=== PATIENT | female | born 1935 | race Caucasian/White ===

== ENCOUNTER 2017-08-01 15:07 | Emergency (ER) | payer MEDICARE ==
[~2017-08-01] VITALS: Ht 170.2 cm; Wt 65.8 kg
[2017-08-01] MEDS ORDERED: IV NORMAL SALINE 1000 ML BAG IV ONE (15:15)
--- NOTE | 2017-08-01 15:16 | NUR ---
PT IS IN ROOM #1B. DR COLIN EVALUATED THE PT.
[2017-08-01] MEDS ORDERED: ARMOUR THYROID 120 MG (15:22)
[2017-08-01] MEDS ORDERED: PAROXETINE 12.5 MG (15:22)
[2017-08-01] MEDS ORDERED: ZOLPIDEM TARTRATE 10 MG TABLET (15:22)
[2017-08-01] MEDS ORDERED: CLONAZEPAM 0.5 MG TABLET (15:22)
[2017-08-01] MEDS ORDERED: CLONAZEPAM 0.5 MG (15:22)
[2017-08-01] MEDS ORDERED: PAROXETINE 37.5 MG (15:22)
[2017-08-01] MEDS ORDERED: LEVOTHYROXINE 150 MCG TABLET (15:22)
[2017-08-01 15:38] LABS: BASOPHILS # (AUTO) 0.1 K/uL (0.0-8.0); BASOPHILS % (AUTO) 0.7 % (0.0-2.0); EOSINOPHILS # (AUTO) 0.1 K/uL (0.0-0.7); EOSINOPHILS % (AUTO) 1.6 % (0.0-7.0); HEMATOCRIT 38.6 % (37-47); HEMOGLOBIN 12.8 G/DL (12.0-16.0); LYMPHOCYTES # (AUTO) 1.4 K/UL (0.8-4.8); LYMPHOCYTES % (AUTO) 17.5 % (20.5-51.5); MEAN CORPUSCULAR HEMOGLOBIN 28.1 UUG (27.0-31.0); MEAN CORPUSCULAR HGB CONC 33 g/dL (32.0-37.0); MEAN CORPUSCULAR VOLUME 84.8 FL (81.0-99.0); MONOCYTES # (AUTO) 0.6 K/UL (0.1-1.30); MONOCYTES % (AUTO) 7.1 % (0.0-11.0); NEUTROPHILS # (AUTO) 5.7 K/UL (1.8-8.9); NEUTROPHILS % (AUTO) 73.1 % (38.5-71.5); PLATELET COUNT (AUTO) 180 K/UL (150-450); RED BLOOD CELL COUNT(AUTO) 4.55 MIL/UL (4.2-5.4); WHITE BLOOD COUNT (AUTO) 7.9 K/UL (4.0-11.2)
[2017-08-01 15:46] LABS: CARBON DIOXIDE 28 mmol/L (21-32); CHLORIDE 98 mmol/L (98-107); CREATININE 1.2 mg/dL (0.6-1.3); GLUCOSE 121 mg/dL (74-106); POTASSIUM 3.6 mmol/L (3.5-5.1); UREA NITROGEN, BLOOD 20 mg/dL (7-18)
[2017-08-01 15:58] LABS: ALANINE AMINOTRANSFERASE 21 U/L (14-59); ALKALINE PHOSPHATASE 60 U/L (50-136); ASPARTATE AMINOTRANSFERASE 17 U/L (15-37); BILIRUBIN,DIRECT 0.1 mg/dL (0.0-0.2); BILIRUBIN,TOTAL 0.5 mg/dL (0.2-1.0); TOTAL PROTEIN, SERUM 6.3 g/dL (6.4-8.2)
[2017-08-01 16:50] VITALS: BP 125/72
--- NOTE | 2017-08-01 16:50 | NUR ---
IV removed. Catheter intact and site benign. Pressure and 4x4 gauze applied to site. No bleeding noted. Patient discharged to home in stable conditon. Written and verbal after care instructions given. Patient verbalizes understanding of instructions. Stressed follow up with pmd/cardio or return to ER for worsening s/s.
== END 2017-08-01 16:51 | disposition home or self-care (01) ==
LOC: ER 15:07
DX: R07.89 Other chest pain (principal); Z88.8 Allergy status to other drugs, medicaments and biological substances; R79.1 Abnormal coagulation profile
CPT/HCPCS: 36415; 70030-TC; 71010; 83605; 84443; 85025; 85730; 87040; 93005; A4663; J7030

== ENCOUNTER 2017-11-16 03:59 | Inpatient (IN) | payer MEDICARE ==
[~2017-11-16] VITALS: Ht 170.2 cm; Wt 65.8 kg
[2017-11-16] VITALS (9 sets, daily range): BP systolic 95–155; BP diastolic 43–75
[~2017-11-16 03:59] MED LIST: ARMOUR THYROID 120 MG; CLONAZEPAM 0.5 MG; CLONAZEPAM 0.5 MG TABLET; LEVOTHYROXINE 150 MCG TABLET; PAROXETINE 12.5 MG; PAROXETINE 37.5 MG; ZOLPIDEM TARTRATE 10 MG TABLET
[2017-11-16] MEDS ORDERED: DILTIAZEM HCL 25 MG IV IV ONE (04:30)
[2017-11-16] MEDS ORDERED: IV NORMAL SALINE 1000 ML BAG IV ONE (04:30)
[2017-11-16] MEDS ORDERED: DILTIAZEM HCL IV 125 MG in IV DEXTROSE 5% 100 ML IV PRN (04:30)
--- NOTE | 2017-11-16 04:40 | NUR ---
SPOKE WITH PT UNABLE TO VERIFY MEDICATIONS.SON HAS BEEN CALLED BY NEIGHBOR.WILL ATTEMT TO GET LIST OF MEDS OR MEDICATIONS FROM HIM
[2017-11-16] MEDS ORDERED: DILTIAZEM HCL 25 MG IV ONE ×2 (04:44→04:48)
[2017-11-16] MEDS ORDERED: DILTIAZEM HCL 50 MG IV ONE (04:48)
[2017-11-16 04:56] LABS: BASOPHILS % (AUTO) 0.1 % (0.0-2.0); EOSINOPHILS # (AUTO) 0.1 K/uL (0.0-0.7); EOSINOPHILS % (AUTO) 0.6 % (0.0-7.0); HEMATOCRIT 34.9 % (31.2-41.9); HEMOGLOBIN 11.7 g/dL (10.9-14.3); LYMPHOCYTES # (AUTO) 0.6 K/uL (20.0-40.0); LYMPHOCYTES % (AUTO) 6.3 % (20.5-51.5); MEAN CORPUSCULAR HEMOGLOBIN 28.6 uug (24.7-32.8); MEAN CORPUSCULAR HGB CONC 34 g/dL (32.3-35.6); MEAN CORPUSCULAR VOLUME 85.3 fL (75.5-95.3); MONOCYTES % (AUTO) 10.7 % (0.0-11.0); NEUTROPHILS # (AUTO) 7.7 K/uL (1.8-8.9); NEUTROPHILS % (AUTO) 82.3 % (38.5-71.5); PLATELET COUNT (AUTO) 106 K/uL (179-408); RED BLOOD CELL COUNT(AUTO) 4.09 MIL/uL (3.63-4.92); WHITE BLOOD COUNT (AUTO) 9.3 K/uL (3.8-11.8)
[2017-11-16] MEDS ORDERED: CALCIUM GLUCONATE 1 GM/10 ML VIAL IV ONE (05:00)
[2017-11-16] MEDS ORDERED: CALCIUM GLUCONATE IV 0.1 GM in IV DEXTROSE 5% 50 ML IV ONE (05:00)
[2017-11-16 05:12] LABS: ACETAMINOPHEN < 2.0 ug/mL (10-30); ALANINE AMINOTRANSFERASE 28 U/L (14-59); ALKALINE PHOSPHATASE 92 U/L (50-136); ASPARTATE AMINOTRANSFERASE 28 U/L (15-37); BILIRUBIN,DIRECT 0.2 mg/dL (0.0-0.2); BILIRUBIN,TOTAL 0.6 mg/dL (0.2-1.0); CARBON DIOXIDE 24 mmol/L (21-32); CHLORIDE 95 mmol/L (98-107); CREATININE 1.7 mg/dL (0.6-1.3); GLUCOSE 118 mg/dL (74-106); POTASSIUM 4.2 mmol/L (3.5-5.1); TOTAL PROTEIN, SERUM 6.8 g/dL (6.4-8.2); UREA NITROGEN, BLOOD 31 mg/dL (7-18)
[2017-11-16 05:15] LABS: ETHANOL < 3 MG/DL (0-0)
[2017-11-16] MEDS ORDERED: TDAP DIPH,PERTUSS,TET VAC/PF 0.5 ML DISP.SYRIN IM ONE ×2 (05:15→06:16)
[2017-11-16 05:19] LABS: THYROID STIMULATING HORMONE 3.139 mIU/mL (0.358-3.740)
[2017-11-16 06:00] LABS: *BILIRUBIN,URIN NEGATIVE (NEGATIVE); *BLOOD, URINE 2+ (NEGATIVE); *CLARITY,URINE CLOUDY (CLEAR); *COLOR,URINE YELLOW (YELLOW); *KETONES,URINE 2+ (NEGATIVE); *PROTEIN,URINE 2+ (NEGATIVE); LEUKOCYTE ESTERASE ,URINE 2+ (NEGATIVE); NITRITE, URINE POSITIVE (NEGATIVE); PH,URINE 5.5 (5.0-8.0); UGLUCOSE NEGATIVE (NEGATIVE)
[2017-11-16] MEDS ORDERED: ASPIRIN 81 MG TAB.CHEW PO ONE ×2 (06:15→06:30)
[2017-11-16] MEDS ORDERED: ACETAMINOPHEN 325 MG TABLET PO PRN (06:15)
[2017-11-16] MEDS ORDERED: HYDROCODONE/APAP 5-325MG TABLET PO PRN (06:15)
[2017-11-16] MEDS ORDERED: MAGNESIUM HYDROXIDE 30 ML LIQUID UDC PO PRN (06:15)
[2017-11-16] MEDS ORDERED: OLANZAPINE 5 MG TABLET PO PRN (06:15)
[2017-11-16] MEDS ORDERED: ONDANSETRON 4 MG/2 ML VIAL IV PRN (06:15)
[2017-11-16] MEDS ORDERED: MORPHINE SULFATE 2 MG/1 ML DISP.SYRIN IV PRN (06:15)
[2017-11-16] MEDS ORDERED: Z GUARD REMEDY PASTE 57 GM TUBE TOP PRN (06:15)
[2017-11-16 06:28] LABS: *AMPHETAMINE, URINE NEGATIVE (NEGATIVE); *BARBITURATE, URINE NEGATIVE (NEGATIVE); *CANNABINOID, URINE NEGATIVE (NEGATIVE); *COCCAINE, URINE NEGATIVE (NEGATIVE); *OPIATE, URINE NEGATIVE (NEGATIVE); *PHENCYCLIDINE SCREEN,URINE NEGATIVE (NEGATIVE)
[2017-11-16] MEDS ORDERED: NITROFURANTOIN/NITROFURAN MAC 100 MG CAPSULE PO ONE (06:30)
--- NOTE | 2017-11-16 07:30 | NUR ---
Pt new admission from ER dept with chief complaint of AMS and was found with A-fib RVR in the ER. REc'd Max in the ER. Initial head to toe assessment completed. Pt A&O x2. Able to make needs known in clear [place]. On RA tolerating well at 98% O2Sat. Denies pain at this time. Oriented to room and call light. No acute distress noted. Denies chest pain. On tele, with A-fib. Will continue to monitor.
[2017-11-16] MEDS ORDERED: LEVO150T8 PO (10:12)
[2017-11-16] MEDS ORDERED: ZOLP10TA2 PO (10:13)
[2017-11-16] MEDS ORDERED: PARO25TA16 PO ×2 (10:14→10:15)
[2017-11-16] MEDS ORDERED: METO-357 PO (10:16)
[2017-11-16] MEDS ORDERED: METOPROLOL SUCCINATE XL 25 MG TAB.SR.24H PO ONE (12:28)
[2017-11-16] MEDS ORDERED: DILTIAZEM HCL 30 MG TABLET PO SCH (13:15)
[2017-11-16 14:47] LABS: RBC,URINE 20-50 /HPF (0-3); SQUAMOUS EPITHELIAL CELL,UR FEW /HPF (NONE SEEN); WBC,URINE 20-50 /HPF (0-3)
[2017-11-16 14:58] LABS: BACTERIA,URINE MANY /HPF (NONE SEEN)
--- NOTE | 2017-11-16 15:00 | NUR ---
Noted pt with elevated temp of 102.7, 130, 22, 131/58, 95% O2Sat RA, 0/10. Pt continues to be confused and verbalizing she needs to go to the hospital. Reoriented pt. Assisted back to bed. Cooling measures initiated. Administered Tylenol 650mg PO PRN. Notified Dr. Kam notified with new order for Blood Cx X2, Start Zosyn IV, and Vanco IV. Noted and carried out. Will encourage PO fluid intake. Will continue to monitor pt.
--- NOTE | 2017-11-16 15:08 | NUR ---
CLINICAL PHARMACY NOTE:VANCOMYCIN DOSING S: To start vancomycin dosing on 82 y/o female for "suspected infection" (waiting for MD note) O: Temp 98.6 BUN 31 Scr 1.7 WBC 9.3 Plan: Will dose by levels due to decrease renal function. Will give vanco 1gm IVPB x1 today at 1600. Pharmacy will check srcr in am & decide when to order next random for further dosing. Will continue to follow Addendum: 11/16/17 at 1512 by GARY AGUERO HT 170.1 CM WT 65.7 KG
[2017-11-16] MEDS: PIPERACILLIN/TAZOBACTAM/D5W 2.25 G in PREMIXED 1 EACH IV SCH ×2 (15:28→20:23)
[2017-11-16] MEDS ORDERED: VANCOMYCIN IV 1 G in PREMIXED 0 EACH IV ONE (16:00)
[2017-11-16] MEDS ORDERED: DILTIAZEM HCL 30 MG TABLET PO PRN (16:30)
[2017-11-16] MEDS: METOPROLOL TARTRATE 25 MG TABLET PO SCH ×2 (18:00→23:34)
--- NOTE | 2017-11-16 18:30 | NUR ---
Pt in bed with eyes closed. Arousable to name. Temp 98.3 oral. On tele, noted with controlled A-Fib at this time with rate in the 80s. Denies pain. Received Zosyn and Vanco IV as ordered. No s/s of adverse side effects noted. Pt appears less confused. No behavioral manifestation noted. No s/s of hallucination noted. No facial grimacing. Will endorse to incoming nurse.
--- NOTE | 2017-11-16 19:30 | NUR ---
RECEIVED PT LYING IN BED, AAOX3. DENIES ANY PAIN OR SOB. NOT IN ACUTE DISTRESS. O2 SAT AT 98% ON RA. A. FIB ON THE 80'S ON TELE. IV SITE ON RIGHT HAND INTACT AND PATENT. BED IN LOCK AND LOW POSITION. BED ALARM ON. SAFETY MEASURE INITIATED AND CALL CROWDER WITHIN REACH.
--- NOTE | 2017-11-17 00:02 | NUR ---
PT SLEEPING INTERMITTENTLY. WITH PERIOD OF CONFUSION NOTED, LOOKING FOR HER SON AND THOUGHT IT'S DAY TIME. IN NO ACUTE DISTRESS. O2 SAT AT 93% ON RA. IV SITE INTACT AND PATENT. SR WITH PAC ON TELE. 80/MIN. SAFETY MEASURE MAINTAINED AND CALL CROWDER WITHIN REACH.
[2017-11-17] MEDS: PIPERACILLIN/TAZOBACTAM/D5W 2.25 G in PREMIXED 1 EACH IV SCH ×2 (02:30→08:09)
[2017-11-17 04:00] VITALS: BP 110/58
[2017-11-17] MEDS: METOPROLOL TARTRATE 25 MG TABLET PO SCH ×3 (05:20→20:06)
--- NOTE | 2017-11-17 06:03 | NUR ---
AOX3 WITH PERIODS OF CONFUSION. DENIES ANY PAIN OR SOB. NOT IN ACUTE DISTRESS. O2 SAT AT 98% ON RA. A. FIB, SR WITH PAC'S ON TELE. IV SITE ON RIGHT HAND INTACT AND PATENT. ASSISTED TO BATHROOM PRN. BED IN LOCK AND LOW POSITION. BED ALARM ON. SAFETY MEASURE MAINTAINED AND CALL CROWDER WITHIN REACH.
[2017-11-17 06:58] LABS: BASOPHILS % (AUTO) 0.2 % (0.0-2.0); EOSINOPHILS # (AUTO) 0.1 K/uL (0.0-0.7); EOSINOPHILS % (AUTO) 0.7 % (0.0-7.0); HEMATOCRIT 32.5 % (31.2-41.9); HEMOGLOBIN 10.9 g/dL (10.9-14.3); LYMPHOCYTES # (AUTO) 0.7 K/uL (20.0-40.0); LYMPHOCYTES % (AUTO) 7.6 % (20.5-51.5); MEAN CORPUSCULAR HEMOGLOBIN 28.2 uug (24.7-32.8); MEAN CORPUSCULAR HGB CONC 34 g/dL (32.3-35.6); MEAN CORPUSCULAR VOLUME 83.9 fL (75.5-95.3); MONOCYTES # (AUTO) 1.1 K/uL (2.0-10.0); MONOCYTES % (AUTO) 11.3 % (0.0-11.0); NEUTROPHILS # (AUTO) 7.7 K/uL (1.8-8.9); NEUTROPHILS % (AUTO) 80.2 % (38.5-71.5); RED BLOOD CELL COUNT(AUTO) 3.87 MIL/uL (3.63-4.92); WHITE BLOOD COUNT (AUTO) 9.6 K/uL (3.8-11.8)
[2017-11-17 07:00] LABS: ALANINE AMINOTRANSFERASE 25 U/L (14-59); ALKALINE PHOSPHATASE 83 U/L (50-136); ASPARTATE AMINOTRANSFERASE 25 U/L (15-37); BILIRUBIN,TOTAL 0.6 mg/dL (0.2-1.0); CARBON DIOXIDE 24 mmol/L (21-32); CHLORIDE 96 mmol/L (98-107); CHOLESTEROL 122 mg/dL (<200); CREATININE 1.2 mg/dL (0.6-1.3); GLUCOSE 102 mg/dL (74-106); HDL CHOLESTEROL 39 mg/dL (40-60); MAGNESIUM 1.7 mg/dL (1.8-2.4); PHOSPHOROUS 2.4 mg/dL (2.5-4.9); TOTAL PROTEIN, SERUM 5.6 g/dL (6.4-8.2); TRIGLYCERIDES 78 MG/DL (30-150); UREA NITROGEN, BLOOD 20 mg/dL (7-18)
[2017-11-17 07:10] LABS: PLATELET COUNT (AUTO) 142 K/uL (179-408)
[2017-11-17] MEDS: ASPIRIN EC 325 MG TABLET.DR PO SCH (08:09)
--- NOTE | 2017-11-17 09:05 | NUR ---
PT WALK WITH THE PHYSICAL THERAPY
[2017-11-17 11:04] VITALS: BP 114/53
[2017-11-17] MEDS ORDERED: FUROSEMIDE 20 MG/2 ML VIAL IV ONE (12:15)
[2017-11-17] MEDS: CEFTRIAXONE 1 G in IV DEXTROSE 5% 50 ML IV SCH (13:04)
[2017-11-17] MEDS ORDERED: VANCOMYCIN IV 1 G in PREMIXED 0 EACH IV ONE (15:00)
[2017-11-17 15:07] VITALS: BP 116/64
[2017-11-17] MEDS ORDERED: NEUTRA PHOS PACKET PO ONE (15:45)
[2017-11-17] MEDS: MAGNESIUM SULFATE/D5W 100 ML IV SCH ×2 (16:43→17:45)
--- NOTE | 2017-11-17 17:05 | NUR ---
CLINICAL PHARMACY NOTE:VANCOMYCIN DOSING S: To continue vancomycin dosing on 82 y/o female for UTI with possible early sepsis Temp 98.4 BUN 20 Scr 1.2 WBC 9.6 Vancomycin random 8.8 on am labs Plan: . Will give vanco 1gm IVPB x1 today at 1500. Will continue to dose by random level due to unstable renal function. Next random level is due tomorrow at 0600. Will follow the level.
[2017-11-17 19:24] VITALS: BP 95/49
--- NOTE | 2017-11-17 20:00 | NUR ---
RECEIVED PATIENT AWAKE IN BED. A/OX3. FORGETFUL AT TIMES AND NEEDS REDIRECTION. PATIENT STATED SHE HAS NOT SLEPT IN THE TIME SHE HAS BEEN HERE AND STATED AT HOME SHE TAKES AMBIEN TO SLEEP. NOTIFIED DR. MANJARREZ CHEF BROILER OR FRY FOR FURTHER ORDERED. RECEIVED ORDER FOR AMBIEN. VS WNL. PATIENT DENIES ANY PAIN. NO RESP. DISTRESS NOTED. H/L INTACT AND PATENT. BED ALARM ON FOR SAFETY, CALL LIGHT IN REACH. ALL NEEDS ATTENDED. WILL CONTINUE TO MONITOR AND ASSESS.
[2017-11-17] MEDS: ZOLPIDEM 5 MG TABLET PO PRN ×2 (21:41→22:45)
[2017-11-18 04:30] VITALS: BP 116/98
--- NOTE | 2017-11-18 06:07 | NUR ---
PATIENT ASLEEP IN BED. EASILY AROUSABLE. SLEPT WELL THROUGHOUT THE NIGHT. VSS. DENIES PAIN OR DISCOMFORT. NO RESP. DISTRESS NOTED. CALL LIGHT IN REACH. ALL NEEDS ATTENDED, WILL CONTINUE TO MONITOR.
[2017-11-18 06:51] LABS: CARBON DIOXIDE 31 mmol/L (21-32); CHLORIDE 96 mmol/L (98-107); CREATININE 1.2 mg/dL (0.6-1.3); GLUCOSE 90 mg/dL (74-106); MAGNESIUM 2.2 mg/dL (1.8-2.4); PHOSPHOROUS 3.4 mg/dL (2.5-4.9); POTASSIUM 3.5 mmol/L (3.5-5.1); UREA NITROGEN, BLOOD 16 mg/dL (7-18); VANCOMYCIN,RANDOM 11.7 ug/mL (18.0-26.0)
--- NOTE | 2017-11-18 07:38 | NUR ---
RECEIVED PT LYING IN BED, AAOX3. DENIES ANY PAIN OR SOB. NOT IN ACUTE DISTRESS. IV SITE ON RIGHT HAND INTACT AND PATENT. BED IN LOCK AND LOW POSITION. BED ALARM ON. SAFETY MEASURE INITIATED AND CALL CROWDER WITHIN REACH.
[2017-11-18] MEDS: ASPIRIN EC 325 MG TABLET.DR PO SCH (08:03)
[2017-11-18] MEDS: METOPROLOL TARTRATE 25 MG TABLET PO SCH ×2 (08:03→20:44)
[2017-11-18] MEDS ORDERED: VANCOMYCIN IV 1 G in PREMIXED 0 EACH IV ONE (09:00)
[2017-11-18 11:36] VITALS: BP 106/66
[2017-11-18] MEDS: CEFTRIAXONE 1 G in IV DEXTROSE 5% 50 ML IV SCH (12:15)
--- NOTE | 2017-11-18 15:47 | NUR ---
CLINICAL PHARMACY NOTE:VANCOMYCIN DOSING S: To continue vancomycin dosing on 82 y/o female for UTI with possible early sepsis Temp 98.4 BUN 16 Scr 1.2 WBC 9.6 (11/17) Vancomycin random 11.7 on am labs Plan: . Will give vanco 1gm IVPB x1 today at 0900. Will continue to dose by random level due to unstable renal function. Next random level is due tomorrow at 0600. Will follow the level.
[2017-11-18 16:05] VITALS: BP 102/60
[2017-11-18] MEDS: SULFAMETH/TRIMETH 800/160 MG TABLET PO SCH ×2 (18:09→20:42)
--- NOTE | 2017-11-18 19:35 | NUR ---
PT RECEIVED IN BED, AWAKE. A/OX2. ABLE TO MAKE NEEDS KNOWN. V/S STABLE. IN NO ACUTE DISTRESS. NO C/O PAIN AT THIS TIME. REFUSED IV PLACEMENT, AWARE. ON RA, TOLERATING WELL. AFEBRILE. PT ENCOURAGE TO STAY IN BED AND USE CALL LIGHT FOR ASSISTANCE. HOB ELEVATED. SAFETY MEASURES IMPLEMENTED. BED ALARM SET. CALL LIGHT WITHIN REACH.
[2017-11-18 20:22] VITALS: BP 100/68
[2017-11-18] MEDS: ZOLPIDEM 5 MG TABLET PO PRN (20:42)
--- NOTE | 2017-11-18 20:45 | NUR ---
ENCOURAGED PT TO NOT USE SEDATIVE MEDICATION, PER MD RECOMMENDATION. PT C/O DIFFICULTY SLEEPING. ADMINISTERED AMBIEN ORDERED. PT REORIENTED. IN STABLE CONDITION. CALL LIGHT KEPT WITHIN REACH. BED ALARM SET.
[2017-11-19 05:24] VITALS: BP 110/56
--- NOTE | 2017-11-19 05:50 | NUR ---
END OF SHIFT NOTES. PT SLEPT WELL THROUGHOUT SHIFT. IN STABLE CONDITION. CONT TO NOT HAVE IV IN PLACE. AWARE. TOLERATED RA, WELL. AFEBRILE. ALL NEEDS ATTENDED. SAFETY MAINTAINED. CALL LIGHT WITHIN REACH.
--- NOTE | 2017-11-19 07:35 | NUR ---
PT RECEIVED IN BED, AWAKE. A/OX2. ABLE TO MAKE NEEDS KNOWN. V/S STABLE. IN NO ACUTE DISTRESS. NO C/O PAIN AT THIS TIME. ON RA, TOLERATING WELL. PT ENCOURAGE TO STAY IN BED AND USE CALL LIGHT FOR ASSISTANCE. SAFETY MEASURES IMPLEMENTED. BED ALARM SET. CALL LIGHT WITHIN REACH.
[2017-11-19] MEDS: METOPROLOL TARTRATE 25 MG TABLET PO SCH (08:05)
[2017-11-19] MEDS: SULFAMETH/TRIMETH 800/160 MG TABLET PO SCH (08:05)
[2017-11-19] MEDS: ASPIRIN EC 325 MG TABLET.DR PO SCH (08:05)
[2017-11-19 11:45] VITALS: BP 147/73
[2017-11-19] MEDS ORDERED: PAROXETINE HCL 37.5 MG PO SCH (15:30)
[2017-11-19] MEDS ORDERED: METOPROLOL SUCCINATE XL 50 MG TAB.SR.24H PO SCH (15:30)
[2017-11-19] MEDS ORDERED: PAROXETINE HCL 12.5 MG PO SCH (15:30)
[2017-11-19 15:40] VITALS: BP 125/72
[2017-11-19] MEDS ORDERED: PAROXETINE HCL 20 MG TABLET PO SCH ×2 (15:53→16:00)
--- NOTE | 2017-11-19 17:52 | NUR ---
D/C RN REPORT GIVEN PEGGY RODRIGUEZ IN REHAB
[2017-11-19] MEDS ORDERED: LEVOTHYROXINE SODIUM 150 MCG TABLET PO ONE (18:00)
--- NOTE | 2017-11-19 18:10 | NUR ---
D/C ORDERS RECEIVED NOTED AND CARRIED OUT,D/C INSTRUCTION GIVEN TO THE PT .D/C THE PT TO ARU VIA WHEEL CHAIR IN STABLE CONDITION.PT SON NOTIFIED
[2017-11-19] MEDS ORDERED: METO25TA6 PO (18:59)
[2017-11-19] MEDS ORDERED: SULF1TAB48 PO (18:59)
[2017-11-19] MEDS ORDERED: DILT60TA35 PO (18:59)
[2017-11-19] MEDS ORDERED: ASPI-612 PO (18:59)
[2017-11-19] MEDS ORDERED: HYDR-3326 PO (18:59)
[2017-11-19] MEDS ORDERED: ZOLP5TAB2 PO (19:01)
[2017-11-20] MEDS ORDERED: LEVOTHYROXINE SODIUM 150 MCG TABLET PO SCH (07:00)
[2017-11-20] MEDS ORDERED: PAROXETINE HCL 10 MG TABLET PO SCH (09:00)
== END 2017-11-19 18:10 | DRG 871 ==
LOC: ER 03:59 → DOU 06:48 → TELE-TD 07:25 → TELE 16:40 → MED 11-17 15:23
PROVIDERS: ADMIT Internal Medicine; ATTEND Internal Medicine
DX: A41.9 Sepsis, unspecified organism (principal); J96.01 Acute respiratory failure with hypoxia; N17.0 Acute kidney failure with tubular necrosis; I21.A1 Myocardial infarction type 2; G93.41 Metabolic encephalopathy; D69.6 Thrombocytopenia, unspecified; J18.9 Pneumonia, unspecified organism; I48.0 Paroxysmal atrial fibrillation; E87.1 Hypo-osmolality and hyponatremia; N39.0 Urinary tract infection, site not specified; J98.11 Atelectasis; I50.32 Chronic diastolic (congestive) heart failure; Z85.850 Personal history of malignant neoplasm of thyroid; W01.0XXA Fall on same level from slipping, tripping and stumbling without subsequent striking against object, initial encounter; E89.0 Postprocedural hypothyroidism; S80.812A Abrasion, left lower leg, initial encounter; S80.811A Abrasion, right lower leg, initial encounter; Y92.009 Unspecified place in unspecified non-institutional (private) residence as the place of occurrence of the external cause; B96.20 Unspecified Escherichia coli [E. coli] as the cause of diseases classified elsewhere; R44.1 Visual hallucinations; M50.30 Other cervical disc degeneration, unspecified cervical region; M19.90 Unspecified osteoarthritis, unspecified site; G47.00 Insomnia, unspecified; F32.9 Major depressive disorder, single episode, unspecified; F41.9 Anxiety disorder, unspecified; M48.02 Spinal stenosis, cervical region; I51.7 Cardiomegaly
CPT/HCPCS: 36415; 70030-TC; 70450; 71045; 72125; 80307; 83735; 84100; 84443; 85025; 85730; 87040; 87077; 87086; 90715; 93005; 93307; 97116; 97165; 97530; A4217; A4663; G0480; G0480-TC; J0610; J0696; J1940; J2543; J3370; J3475; J3490; J7030; J7050; J7060

== ENCOUNTER 2017-11-19 18:28 | Inpatient (IN) | payer MEDICARE ==
[~2017-11-19] VITALS: Ht 170.2 cm; Wt 65.8 kg
[~2017-11-19 18:28] MED LIST changes: -ARMOUR THYROID 120 MG; -CLONAZEPAM 0.5 MG; -CLONAZEPAM 0.5 MG TABLET; +LEVO150T8 PO; -LEVOTHYROXINE 150 MCG TABLET; +METO-357 PO; +PARO25TA16 PO; -PAROXETINE 12.5 MG; -PAROXETINE 37.5 MG; +ZOLP10TA2 PO; -ZOLPIDEM TARTRATE 10 MG TABLET
[2017-11-19 18:39] VITALS: BP 147/90
[2017-11-19] MEDS ORDERED: MAGNESIUM HYDROXIDE 30 ML LIQUID UDC PO PRN (18:45)
[2017-11-19] MEDS ORDERED: METO25TA6 PO (18:59)
[2017-11-19] MEDS ORDERED: ASPI-612 PO (18:59)
[2017-11-19] MEDS ORDERED: SULF1TAB48 PO (18:59)
[2017-11-19] MEDS ORDERED: HYDR-3326 PO (18:59)
[2017-11-19] MEDS ORDERED: DILT60TA35 PO (18:59)
[2017-11-19] MEDS ORDERED: ZOLP5TAB2 PO (19:01)
[2017-11-19] MEDS ORDERED: PAROXETINE HCL 37.5 MG PO SCH (19:45)
[2017-11-19] MEDS ORDERED: PAROXETINE HCL 12.5 MG PO SCH (19:45)
[2017-11-19] MEDS ORDERED: ZOLPIDEM 5 MG TABLET PO PRN (19:45)
[2017-11-19] MEDS ORDERED: DILTIAZEM HCL 60 MG TABLET PO PRN (19:45)
[2017-11-19 20:00] VITALS: BP 132/83
[2017-11-19] MEDS ORDERED: Medication Not On Formulary EA (Zolpidem Tartrate (Ambien) 10 MG) PO SCH (21:00)
[2017-11-19] MEDS: SULFAMETH/TRIMETH 800/160 MG TABLET PO SCH (21:03)
[2017-11-19] MEDS: METOPROLOL TARTRATE 25 MG TABLET PO SCH (21:03)
[2017-11-19] MEDS: ZOLPIDEM 5 MG TABLET PO PRN (21:19)
[2017-11-20] MEDS: LEVOTHYROXINE SODIUM 150 MCG TABLET PO SCH (06:19)
[2017-11-20] MEDS ORDERED: LEVOTHYROXINE SODIUM 150 MCG TABLET PO SCH (07:00)
[2017-11-20 08:58] VITALS: BP 167/80
[2017-11-20] MEDS ORDERED: PAROXETINE HCL 20 MG TABLET PO SCH (09:00)
[2017-11-20] MEDS: SULFAMETH/TRIMETH 800/160 MG TABLET PO SCH ×2 (09:17→20:19)
[2017-11-20] MEDS: METOPROLOL TARTRATE 25 MG TABLET PO SCH ×2 (09:17→20:20)
[2017-11-20] MEDS: ASPIRIN 325 MG TABLET PO SCH (09:17)
[2017-11-20 20:34] VITALS: BP 168/85
[2017-11-20 21:10] VITALS: BP 158/88
[2017-11-20] MEDS: ZOLPIDEM 5 MG TABLET PO PRN (21:22)
[2017-11-20 22:45] VITALS: BP 144/74
[2017-11-21] MEDS: LEVOTHYROXINE SODIUM 150 MCG TABLET PO SCH (06:18)
[2017-11-21 08:00] VITALS: BP 100/65
[2017-11-21] MEDS: METOPROLOL TARTRATE 25 MG TABLET PO SCH ×2 (09:00→20:12)
[2017-11-21] MEDS: ASPIRIN 325 MG TABLET PO SCH (09:08)
[2017-11-21] MEDS: PAROXETINE HCL 20 MG TABLET PO SCH (09:09)
[2017-11-21] MEDS: SULFAMETH/TRIMETH 800/160 MG TABLET PO SCH ×2 (09:12→20:12)
[2017-11-21 10:12] LABS: ALANINE AMINOTRANSFERASE 65 U/L (14-59); ALKALINE PHOSPHATASE 92 U/L (50-136); ASPARTATE AMINOTRANSFERASE 38 U/L (15-37); BILIRUBIN,TOTAL 0.4 mg/dL (0.2-1.0); CARBON DIOXIDE 27 mmol/L (21-32); CHLORIDE 95 mmol/L (98-107); CREATININE 1.4 mg/dL (0.6-1.3); GLUCOSE 155 mg/dL (74-106); MAGNESIUM 1.8 mg/dL (1.8-2.4); PHOSPHOROUS 3.3 mg/dL (2.5-4.9); POTASSIUM 4.1 mmol/L (3.5-5.1); UREA NITROGEN, BLOOD 11 mg/dL (7-18)
[2017-11-21 10:16] LABS: BASOPHILS % (AUTO) 0.5 % (0.0-2.0); EOSINOPHILS # (AUTO) 0.2 K/uL (0.0-0.7); EOSINOPHILS % (AUTO) 2.6 % (0.0-7.0); HEMATOCRIT 38.6 % (31.2-41.9); HEMOGLOBIN 12.9 g/dL (10.9-14.3); LYMPHOCYTES # (AUTO) 1.4 K/uL (20.0-40.0); LYMPHOCYTES % (AUTO) 16.3 % (20.5-51.5); MEAN CORPUSCULAR HEMOGLOBIN 28.1 uug (24.7-32.8); MEAN CORPUSCULAR HGB CONC 33 g/dL (32.3-35.6); MEAN CORPUSCULAR VOLUME 84.1 fL (75.5-95.3); MONOCYTES # (AUTO) 0.6 K/uL (2.0-10.0); MONOCYTES % (AUTO) 6.8 % (0.0-11.0); NEUTROPHILS # (AUTO) 6.1 K/uL (1.8-8.9); NEUTROPHILS % (AUTO) 73.8 % (38.5-71.5); RED BLOOD CELL COUNT(AUTO) 4.59 MIL/uL (3.63-4.92); WHITE BLOOD COUNT (AUTO) 8.3 K/uL (3.8-11.8)
[2017-11-21 10:29] LABS: PLATELET COUNT (AUTO) 351 K/uL (179-408)
[2017-11-21] MEDS ORDERED: RIVAROXABAN 10 MG TABLET PO SCH (17:00)
[2017-11-21] MEDS: RIVAROXABAN 15 MG TABLET PO SCH (18:35)
[2017-11-21 20:01] VITALS: BP 152/94
[2017-11-21] MEDS: ZOLPIDEM 5 MG TABLET PO PRN (20:37)
[2017-11-22] MEDS: LEVOTHYROXINE SODIUM 150 MCG TABLET PO SCH (06:22)
[2017-11-22 08:00] VITALS: BP 156/95
[2017-11-22] MEDS: SULFAMETH/TRIMETH 800/160 MG TABLET PO SCH ×2 (09:21→20:33)
[2017-11-22] MEDS: PAROXETINE HCL 20 MG TABLET PO SCH (09:21)
[2017-11-22] MEDS: ASPIRIN 325 MG TABLET PO SCH (09:21)
[2017-11-22] MEDS: METOPROLOL TARTRATE 25 MG TABLET PO SCH ×2 (09:23→20:33)
[2017-11-22] MEDS ORDERED: IV NS 1000 ML 1,000 ML IV ONE ×2 (12:15)
[2017-11-22] MEDS: RIVAROXABAN 15 MG TABLET PO SCH (17:30)
[2017-11-22 19:30] VITALS: BP 124/75
[2017-11-22] MEDS: IV NS 1000 ML 1,000 ML IV PRN (20:51)
[2017-11-22] MEDS ORDERED: ZOLPIDEM 5 MG TABLET PO PRN (21:15)
[2017-11-23] MEDS: LEVOTHYROXINE SODIUM 150 MCG TABLET PO SCH (06:23)
[2017-11-23 07:30] VITALS: BP 153/89
[2017-11-23] MEDS: PAROXETINE HCL 20 MG TABLET PO SCH (08:44)
[2017-11-23] MEDS: SULFAMETH/TRIMETH 800/160 MG TABLET PO SCH (08:44)
[2017-11-23] MEDS: METOPROLOL TARTRATE 25 MG TABLET PO SCH ×2 (08:47→21:27)
[2017-11-23] MEDS: RIVAROXABAN 15 MG TABLET PO SCH (17:42)
[2017-11-23] MEDS: ZOLPIDEM 5 MG TABLET PO PRN (21:27)
[2017-11-23] MEDS: IV NS 1000 ML 1,000 ML IV PRN (21:30)
[2017-11-23 21:42] VITALS: BP 120/83
[2017-11-24] MEDS: LEVOTHYROXINE SODIUM 150 MCG TABLET PO SCH (06:11)
[2017-11-24 07:55] VITALS: BP 134/75
[2017-11-24] MEDS: PAROXETINE HCL 20 MG TABLET PO SCH (08:19)
[2017-11-24] MEDS: METOPROLOL TARTRATE 25 MG TABLET PO SCH ×2 (08:21→21:00)
[2017-11-24] MEDS: IV NS 1000 ML 1,000 ML IV PRN (08:25)
[2017-11-24] MEDS: RIVAROXABAN 15 MG TABLET PO SCH (16:48)
[2017-11-24 17:50] VITALS: BP 136/73
[2017-11-24 17:52] VITALS: BP 128/70
[2017-11-24 17:55] VITALS: BP 107/59
[2017-11-24 21:06] VITALS: BP 146/63
[2017-11-24] MEDS: ZOLPIDEM 5 MG TABLET PO PRN (21:53)
[2017-11-25] MEDS: LEVOTHYROXINE SODIUM 150 MCG TABLET PO SCH (06:06)
[2017-11-25] MEDS: PAROXETINE HCL 20 MG TABLET PO SCH (08:42)
[2017-11-25] MEDS: METOPROLOL TARTRATE 25 MG TABLET PO SCH ×2 (08:42→20:23)
[2017-11-25 09:05] VITALS: BP 120/68
[2017-11-25] MEDS: RIVAROXABAN 15 MG TABLET PO SCH (17:47)
[2017-11-25 20:00] VITALS: BP 157/69
[2017-11-25] MEDS: ZOLPIDEM 5 MG TABLET PO PRN (20:24)
[2017-11-25] MEDS ORDERED: ZOLPIDEM 5 MG TABLET PO SCH (21:45)
[2017-11-25] MEDS ORDERED: ZOLPIDEM 5 MG TABLET PO ONE (21:45)
[2017-11-26] MEDS: LEVOTHYROXINE SODIUM 150 MCG TABLET PO SCH (06:08)
[2017-11-26 08:21] LABS: BASOPHILS # (AUTO) 0.1 K/uL (0.0-8.0); BASOPHILS % (AUTO) 1.3 % (0.0-2.0); EOSINOPHILS # (AUTO) 0.2 K/uL (0.0-0.7); EOSINOPHILS % (AUTO) 2.5 % (0.0-7.0); HEMATOCRIT 36.1 % (31.2-41.9); HEMOGLOBIN 12.3 g/dL (10.9-14.3); LYMPHOCYTES # (AUTO) 1.4 K/uL (20.0-40.0); LYMPHOCYTES % (AUTO) 19.5 % (20.5-51.5); MEAN CORPUSCULAR HEMOGLOBIN 28.3 uug (24.7-32.8); MEAN CORPUSCULAR HGB CONC 34 g/dL (32.3-35.6); MEAN CORPUSCULAR VOLUME 83.2 fL (75.5-95.3); MONOCYTES # (AUTO) 0.5 K/uL (2.0-10.0); MONOCYTES % (AUTO) 7.1 % (0.0-11.0); NEUTROPHILS # (AUTO) 4.9 K/uL (1.8-8.9); NEUTROPHILS % (AUTO) 69.6 % (38.5-71.5); PLATELET COUNT (AUTO) 368 K/uL (179-408); RED BLOOD CELL COUNT(AUTO) 4.34 MIL/uL (3.63-4.92)
[2017-11-26 08:29] VITALS: BP 123/64
[2017-11-26 08:29] LABS: ALANINE AMINOTRANSFERASE 52 U/L (14-59); ALKALINE PHOSPHATASE 75 U/L (50-136); ASPARTATE AMINOTRANSFERASE 25 U/L (15-37); BILIRUBIN,TOTAL 0.5 mg/dL (0.2-1.0); CARBON DIOXIDE 29 mmol/L (21-32); CHLORIDE 98 mmol/L (98-107); GLUCOSE 86 mg/dL (74-106); MAGNESIUM 1.8 mg/dL (1.8-2.4); PHOSPHOROUS 3.2 mg/dL (2.5-4.9); POTASSIUM 4.6 mmol/L (3.5-5.1); TOTAL PROTEIN, SERUM 6.6 g/dL (6.4-8.2); UREA NITROGEN, BLOOD 14 mg/dL (7-18)
[2017-11-26 08:33] LABS: THYROID STIMULATING HORMONE 14.257 mIU/mL (0.358-3.740)
[2017-11-26] MEDS: PAROXETINE HCL 20 MG TABLET PO SCH (09:12)
[2017-11-26] MEDS: METOPROLOL TARTRATE 25 MG TABLET PO SCH ×2 (09:13→20:27)
[2017-11-26 17:03] LABS: CHOLESTEROL 167 mg/dL (<200); HDL CHOLESTEROL 49 mg/dL (40-60); TRIGLYCERIDES 58 MG/DL (30-150)
[2017-11-26] MEDS: RIVAROXABAN 15 MG TABLET PO SCH (17:13)
[2017-11-26 20:00] VITALS: BP 155/84
[2017-11-26] MEDS: ZOLPIDEM 5 MG TABLET PO SCH (20:28)
[2017-11-27] MEDS: LEVOTHYROXINE SODIUM 175 MCG TABLET PO SCH (06:24)
[2017-11-27 08:00] VITALS: BP 137/63
[2017-11-27] MEDS: PAROXETINE HCL 20 MG TABLET PO SCH (08:27)
[2017-11-27] MEDS: METOPROLOL TARTRATE 25 MG TABLET PO SCH ×2 (08:28→20:46)
[2017-11-27] MEDS: RIVAROXABAN 15 MG TABLET PO SCH (17:24)
[2017-11-27 19:30] VITALS: BP 116/64
[2017-11-27] MEDS: ATORVASTATIN 10 MG TABLET PO SCH (20:46)
[2017-11-27] MEDS: ZOLPIDEM 5 MG TABLET PO SCH (20:46)
[2017-11-27 21:02] VITALS: BP 129/54
[2017-11-28] MEDS: LEVOTHYROXINE SODIUM 175 MCG TABLET PO SCH (06:41)
[2017-11-28 08:10] VITALS: BP 114/81
[2017-11-28] MEDS: PAROXETINE HCL 20 MG TABLET PO SCH (08:18)
[2017-11-28] MEDS: METOPROLOL TARTRATE 25 MG TABLET PO SCH ×2 (08:21→20:50)
[2017-11-28] MEDS: RIVAROXABAN 15 MG TABLET PO SCH (17:14)
[2017-11-28 20:00] VITALS: BP 134/70
[2017-11-28] MEDS: ATORVASTATIN 10 MG TABLET PO SCH (20:47)
[2017-11-28] MEDS: ZOLPIDEM 5 MG TABLET PO SCH (20:47)
[2017-11-29] MEDS: LEVOTHYROXINE SODIUM 175 MCG TABLET PO SCH (06:13)
[2017-11-29 07:30] VITALS: BP 115/74
[2017-11-29] MEDS: PAROXETINE HCL 20 MG TABLET PO SCH (08:32)
[2017-11-29 08:33] VITALS: BP 115/74
[2017-11-29] MEDS: METOPROLOL TARTRATE 25 MG TABLET PO SCH (08:33)
== END 2017-11-29 12:32 | disposition home health service (06) | DRG 91 ==
PROVIDERS: ADMIT Physical Medicine & Rehabilitation Pain Medicine; ATTEND Physical Medicine & Rehabilitation Pain Medicine
DX: G92 Toxic encephalopathy (principal); I21.4 Non-ST elevation (NSTEMI) myocardial infarction; I50.9 Heart failure, unspecified; I21.A1 Myocardial infarction type 2; N39.0 Urinary tract infection, site not specified; E87.1 Hypo-osmolality and hyponatremia; J98.11 Atelectasis; B96.20 Unspecified Escherichia coli [E. coli] as the cause of diseases classified elsewhere; F32.9 Major depressive disorder, single episode, unspecified; F41.9 Anxiety disorder, unspecified; F51.05 Insomnia due to other mental disorder; R44.1 Visual hallucinations; E78.5 Hyperlipidemia, unspecified; E89.0 Postprocedural hypothyroidism; I25.10 Atherosclerotic heart disease of native coronary artery without angina pectoris; M19.90 Unspecified osteoarthritis, unspecified site; M48.02 Spinal stenosis, cervical region; M50.30 Other cervical disc degeneration, unspecified cervical region; Z85.850 Personal history of malignant neoplasm of thyroid; Z91.81 History of falling; Z88.8 Allergy status to other drugs, medicaments and biological substances
CPT/HCPCS: 36415; 70030-TC; 82306; 83735; 84100; 84443; 85025; 92523; 93005; 97110; 97112; 97116; 97165; 97530; 97535; A4663; J7030

== ENCOUNTER 2019-11-10 00:34 | Inpatient (IN) | payer MEDICARE ==
[~2019-11-10] VITALS: Ht 170.2 cm; Wt 69.9 kg
[~2019-11-10 00:34] MED LIST changes: +ASPI-612 PO; +DILT60TA35 PO; +HYDR-3326 PO; -METO-357 PO; +METO25TA6 PO; +SULF1TAB48 PO; -ZOLP10TA2 PO; +ZOLP5TAB2 PO
[2020-01-06] MEDS ORDERED: VALS80TA2 PO (09:51)
[2020-01-06] MEDS ORDERED: ZOLP10TA2 PO (09:51)
[2020-01-06] MEDS ORDERED: OLME20TA13 PO (09:51)
[2020-01-06] MEDS ORDERED: DILT240C99 PO (09:51)
[2020-01-06] MEDS ORDERED: CLON0.5T4 PO (09:51)
[2020-01-06] MEDS ORDERED: METO50TA7 PO (09:51)
[2020-01-06] MEDS ORDERED: [UNRECOGNIZED DRUG - CODE] PO (09:51)
[2020-01-09] MEDS ORDERED: ASPI-618 PO (20:54)
[2020-01-09] MEDS ORDERED: MAGN400O6 PO (20:54)
[2020-01-09] MEDS ORDERED: LEVO175T7 PO (20:54)
[2020-01-09] MEDS ORDERED: MULT-24 PO (20:54)
[2020-01-09] MEDS ORDERED: PANT40TA2 PO (20:54)
[2020-01-09] MEDS ORDERED: Folic Acid PO (20:54)
[2020-01-09] MEDS ORDERED: CLON0.5T4 PO (20:54)
[2020-01-09] MEDS ORDERED: THIA100T13 PO (20:54)
[2020-01-09] MEDS ORDERED: PARO10TA4 PO (20:54)
--- NOTE | 2020-01-09 22:00 | NUR ---
Patient admitted at this time [facility] to Acute rehab, MD Rendon and Mariajose made aware of transfer, NO complaints of pain, at this time, no skin issues noted, no signs of distress noted, call light in reach, all needs met at this time. WILL CONTINUE PLAN OF CARE WITH REHAB.
[2020-01-10] MEDS ORDERED: Z GUARD REMEDY PASTE 57 GM TUBE TOP PRN (02:00)
[2020-01-10 05:06] VITALS: BP 107/58
--- NOTE | 2020-01-10 07:02 | NUR ---
Patient slept through the night. AxOx3-4, follows commands. No signs and symptoms of acute distress noted, no SOB noted. Patient has 1:1 sitter, fall risk. Medications taken as tolerated. Patients skin is intact. patient has BPR, walker. All needs attended to. Patient kept comfortable. Endorse report to next shift. Continue plan of care in rehab.
[2020-01-10 08:30] VITALS: BP 110/51
[2020-01-10] MEDS ORDERED: MAGNESIUM HYDROXIDE 30 ML LIQUID UDC PO PRN (08:45)
[2020-01-10] MEDS ORDERED: HYDROCODONE/APAP 5-325MG TABLET PO PRN (08:45)
[2020-01-10] MEDS ORDERED: PAROXETINE HCL 12.5 MG PO SCH ×2 (09:00)
[2020-01-10] MEDS ORDERED: METOPROLOL SUCCINATE XL 50 MG TAB.SR.24H PO SCH (09:00)
[2020-01-10] MEDS ORDERED: Medication Not On Formulary EA ([Folic Acid] 1 MG) PO SCH (09:00)
[2020-01-10] MEDS ORDERED: PAROXETINE HCL 37.5 MG PO SCH (09:00)
[2020-01-10] MEDS ORDERED: VALSARTAN 80 MG TABLET PO SCH ×2 (09:00)
[2020-01-10] MEDS ORDERED: ASPIRIN 325 MG TABLET PO SCH (09:00)
[2020-01-10] MEDS ORDERED: DILTIAZEM HCL CD 240 MG CAP.SR.24H PO SCH (09:00)
[2020-01-10] MEDS ORDERED: CLONAZEPAM 0.5 MG TABLET PO SCH (09:00)
[2020-01-10] MEDS ORDERED: SULFAMETH/TRIMETH 800/160 MG TABLET PO SCH (09:00)
[2020-01-10] MEDS: ASPIRIN EC 81 MG TABLET.DR PO SCH (09:48)
[2020-01-10] MEDS: CLONAZEPAM 0.5 MG TABLET PO PRN ×2 (09:48→21:00)
[2020-01-10] MEDS: MULTIVITAMINS,THERAPEUTIC TABLET PO SCH (09:49)
[2020-01-10] MEDS: METOPROLOL TARTRATE 25 MG TABLET PO SCH ×2 (09:49→20:53)
[2020-01-10] MEDS: FOLIC ACID 1 MG TABLET PO SCH (09:49)
[2020-01-10] MEDS: THIAMINE HCL 100 MG TABLET PO SCH (09:49)
[2020-01-10] MEDS: PAROXETINE HCL 10 MG TABLET PO SCH (09:50)
[2020-01-10] MEDS: PANTOPRAZOLE SODIUM 40 MG TABLET.DR PO SCH (09:53)
[2020-01-10 10:00] VITALS: BP 133/72
[2020-01-10 16:05] VITALS: BP 130/55
--- NOTE | 2020-01-10 18:56 | NUR ---
PATIENT IS ALERT, AWAKE, NO DISTRESS NOTED DURING SHIFT
--- NOTE | 2020-01-10 19:30 | NUR ---
Received patient in bed, awake, quietly lying in bed in no apprent distress. Denies any pain/discomforts. Sitter 1:1 maintained at bedside for safety. Continue care as planned.
--- NOTE | 2020-01-11 05:36 | NUR ---
Shift End Report: VS stable. Continue on 1:1 sitter for safety. No fall/injury reported. No agitation/restlessness. Slept well. Cooperative with care. No significant event reported all night. Continue current rehab plan of care.
[2020-01-11 06:05] VITALS: BP 137/69
[2020-01-11] MEDS: LEVOTHYROXINE SODIUM 175 MCG TABLET PO SCH (06:10)
[2020-01-11] MEDS: PANTOPRAZOLE SODIUM 40 MG TABLET.DR PO SCH (06:10)
[2020-01-11] MEDS ORDERED: LEVOTHYROXINE SODIUM 150 MCG TABLET PO SCH (07:00)
[2020-01-11 07:31] LABS: BASOPHILS # (AUTO) 0.1 K/uL (0.0-8.0); BASOPHILS % (AUTO) 1.1 % (0.0-2.0); EOSINOPHILS # (AUTO) 0.2 K/uL (0.0-0.7); EOSINOPHILS % (AUTO) 2.9 % (0.0-7.0); HEMATOCRIT 39.1 % (31.2-41.9); HEMOGLOBIN 13.3 g/dL (10.9-14.3); LYMPHOCYTES # (AUTO) 1.5 K/uL (20.0-40.0); LYMPHOCYTES % (AUTO) 24.3 % (20.5-51.5); MEAN CORPUSCULAR HEMOGLOBIN 29.2 uug (24.7-32.8); MEAN CORPUSCULAR HGB CONC 34 g/dL (32.3-35.6); MEAN CORPUSCULAR VOLUME 86.2 fL (75.5-95.3); MONOCYTES # (AUTO) 0.6 K/uL (2.0-10.0); MONOCYTES % (AUTO) 9.6 % (0.0-11.0); NEUTROPHILS # (AUTO) 3.8 K/uL (1.8-8.9); NEUTROPHILS % (AUTO) 62.1 % (38.5-71.5); PLATELET COUNT (AUTO) 202 K/uL (179-408); RED BLOOD CELL COUNT(AUTO) 4.54 MIL/uL (3.63-4.92); WHITE BLOOD COUNT (AUTO) 6.1 K/uL (3.8-11.8)
[2020-01-11 07:42] LABS: MAGNESIUM 1.9 mg/dL (1.8-2.4); PHOSPHOROUS 3.8 mg/dL (2.5-4.9); POTASSIUM 4.1 mmol/L (3.5-5.1)
--- NOTE | 2020-01-11 07:48 | NUR ---
Received patient in room, shift report received from morning nurse, Pt. sleeping at this time, in no acute distress. Patient with one to one care for monitoring. Safety limits in place, call light left at bed side and will continue with care.
[2020-01-11] MEDS: METOPROLOL TARTRATE 25 MG TABLET PO SCH ×2 (09:00→20:11)
[2020-01-11 09:40] VITALS: BP 106/51
[2020-01-11] MEDS: MULTIVITAMINS,THERAPEUTIC TABLET PO SCH (09:52)
[2020-01-11] MEDS: PAROXETINE HCL 10 MG TABLET PO SCH (09:52)
[2020-01-11] MEDS: ASPIRIN EC 81 MG TABLET.DR PO SCH (09:52)
[2020-01-11] MEDS: THIAMINE HCL 100 MG TABLET PO SCH (09:52)
[2020-01-11] MEDS: FOLIC ACID 1 MG TABLET PO SCH (09:53)
--- NOTE | 2020-01-11 11:00 | NUR ---
Patient took all meds as ordered and tolerated well; patient cooperative with care. Patient on PT/OT therapy. Able to ambulate with a walker and 1 person assist. Skin kept clean and dry. All other needs attended and will continue with care.
[2020-01-11 16:00] VITALS: BP 156/68
--- NOTE | 2020-01-11 19:30 | NUR ---
Received patient awake, in bed, watching TV at this time, appears calm and cooperative. Denies any pain/discomforts at this time. Sitter1:1 maintained/for safety. Safety measures and fall precaution maintained. Continue care as planned.
--- NOTE | 2020-01-11 19:50 | NUR ---
Patient in stable condition, with one to one monitoring. No acute distress noted. no episodes of depression or anxiety noted during shift. ON continuous PT/OT therapy. Vital signs stable. NO complains of pain pain. All safety measures in place, call light left within easy reach, endorsed to next shit and will continue with care.
[2020-01-11 20:00] VITALS: BP 135/55
[2020-01-11] MEDS: CLONAZEPAM 0.5 MG TABLET PO PRN (20:11)
[2020-01-12 04:00] VITALS: BP 133/60
--- NOTE | 2020-01-12 05:22 | NUR ---
Shift End Report: VS stable. Slept well. No complaint presented all night. Remain on continuous 1:1 sitter at bedside for safety. No fall/injury reported. All needs attended and met. No significant event reported all night. Continue current rehab plan of care.
[2020-01-12] MEDS: PANTOPRAZOLE SODIUM 40 MG TABLET.DR PO SCH (05:57)
[2020-01-12] MEDS: LEVOTHYROXINE SODIUM 175 MCG TABLET PO SCH (05:57)
[2020-01-12 07:13] VITALS: BP 113/40
[2020-01-12] MEDS: METOPROLOL TARTRATE 25 MG TABLET PO SCH ×2 (09:00→20:34)
[2020-01-12] MEDS: PAROXETINE HCL 10 MG TABLET PO SCH (09:25)
[2020-01-12] MEDS: ASPIRIN EC 81 MG TABLET.DR PO SCH (09:25)
[2020-01-12] MEDS: THIAMINE HCL 100 MG TABLET PO SCH (09:25)
[2020-01-12] MEDS: FOLIC ACID 1 MG TABLET PO SCH (09:25)
[2020-01-12] MEDS: MULTIVITAMINS,THERAPEUTIC TABLET PO SCH (09:25)
--- NOTE | 2020-01-12 10:20 | NUR ---
Patient is awake, alert, sitting on the side of the bed, not in any form of distress, on room air. She denies any pain or discomfort at this time. Due medications administered and tolerated well. Metoprolol held due to decreased blood pressure, no associated symptoms. Informed Dr. Myers who is in the unit and said OK to hold metoprolol, gave no new order and said to observe for now. 1:1 sitter at bedside for safety. Assisted patient with her needs promptly. Safety measures maintained. Call light and frequently used items placed within reach.
--- NOTE | 2020-01-12 14:49 | NUR ---
INDIVIDUALIZED PLAN OF CARE
[2020-01-12 15:13] VITALS: BP 140/69
[2020-01-12 20:21] VITALS: BP 152/70
[2020-01-12] MEDS: CLONAZEPAM 0.5 MG TABLET PO PRN (21:38)
[2020-01-13 05:00] VITALS: BP 119/51
[2020-01-13] MEDS: PANTOPRAZOLE SODIUM 40 MG TABLET.DR PO SCH (06:24)
[2020-01-13] MEDS: LEVOTHYROXINE SODIUM 175 MCG TABLET PO SCH (06:24)
--- NOTE | 2020-01-13 06:41 | NUR ---
Patient is awake, alert, resting in bed. No signs and symptoms of distress or SOB room air. No complaint of discomfort or pain.Due medications administered and tolerated well. patient remain on 1:1 sitter at bedside for safety, fall risk. Patient slept well through the night. Assisted patient with her needs promptly. Safety measures maintained. Call light within reach.Will continue plan of care, endorse report to next shift.
--- NOTE | 2020-01-13 07:53 | NUR ---
Patient in bed and sleeping at this time, No acute distress noted. Shift report received from overnight houseperson. Patient still with ONE to ONE monitoring. All safety measures in place, call light left at bed side and will continue with care.
[2020-01-13 08:00] VITALS: BP 122/63
[2020-01-13] MEDS: THIAMINE HCL 100 MG TABLET PO SCH (08:54)
[2020-01-13] MEDS: ASPIRIN EC 81 MG TABLET.DR PO SCH (08:54)
[2020-01-13] MEDS: MULTIVITAMINS,THERAPEUTIC TABLET PO SCH (08:54)
[2020-01-13] MEDS: PAROXETINE HCL 10 MG TABLET PO SCH (08:54)
[2020-01-13] MEDS: FOLIC ACID 1 MG TABLET PO SCH (08:55)
[2020-01-13] MEDS: METOPROLOL TARTRATE 25 MG TABLET PO SCH ×2 (08:59→20:27)
--- NOTE | 2020-01-13 13:44 | NUR ---
INTERDISCIPLINARY TEAM CONFERENCE
[2020-01-13 16:00] VITALS: BP 150/71
--- NOTE | 2020-01-13 19:30 | NUR ---
Received patient awake, alert and cooperative with care. Sitter1:1 at bedside for safety. Denies any pain/discomforts at this time. Safety measures and fall precaution maintained. Continue care as planned.
--- NOTE | 2020-01-13 20:06 | NUR ---
Patient sitting up and watching TV, No acute distress noted, patient with one to one person care. Vital signs stable, no complains of pain, ON continuous PT/OT therapy. Patient tolerated all due meds, cooperative with care. All safety measures in place, call light left within easy reach, endorsed to next shit and will continue with care
[2020-01-13 20:27] VITALS: BP 147/70
[2020-01-13] MEDS: ZOLPIDEM 5 MG TABLET PO PRN (23:40)
--- NOTE | 2020-01-14 05:39 | NUR ---
Shift End Report: VS stable. Slept well. Sitter 1:1 maintained for safety. No fall/injury reported. Ambien was given per patients request and as ordered with help. No complaint of pain/discomforts. All needs attended and met. No significant event reported. Continue current plan of care.
[2020-01-14] MEDS: LEVOTHYROXINE SODIUM 175 MCG TABLET PO SCH (06:10)
[2020-01-14] MEDS: PANTOPRAZOLE SODIUM 40 MG TABLET.DR PO SCH (06:10)
[2020-01-14 06:40] VITALS: BP 119/46
[2020-01-14 08:00] VITALS: BP 104/52
[2020-01-14 08:09] LABS: CREATININE 1.1 mg/dL (0.6-1.3); PHOSPHOROUS 3.5 mg/dL (2.5-4.9); POTASSIUM 4.4 mmol/L (3.5-5.1)
[2020-01-14 08:17] LABS: BASOPHILS # (AUTO) 0.1 K/uL (0.0-8.0); BASOPHILS % (AUTO) 1.3 % (0.0-2.0); EOSINOPHILS # (AUTO) 0.2 K/uL (0.0-0.7); EOSINOPHILS % (AUTO) 2.8 % (0.0-7.0); HEMATOCRIT 38.6 % (31.2-41.9); HEMOGLOBIN 12.9 g/dL (10.9-14.3); LYMPHOCYTES # (AUTO) 1.7 K/uL (20.0-40.0); LYMPHOCYTES % (AUTO) 25.9 % (20.5-51.5); MEAN CORPUSCULAR HEMOGLOBIN 28.8 uug (24.7-32.8); MEAN CORPUSCULAR HGB CONC 33 g/dL (32.3-35.6); MEAN CORPUSCULAR VOLUME 86.4 fL (75.5-95.3); MONOCYTES # (AUTO) 0.7 K/uL (2.0-10.0); MONOCYTES % (AUTO) 10.7 % (0.0-11.0); NEUTROPHILS # (AUTO) 3.9 K/uL (1.8-8.9); NEUTROPHILS % (AUTO) 59.3 % (38.5-71.5); PLATELET COUNT (AUTO) 209 K/uL (179-408); RED BLOOD CELL COUNT(AUTO) 4.47 MIL/uL (3.63-4.92); WHITE BLOOD COUNT (AUTO) 6.6 K/uL (3.8-11.8)
[2020-01-14] MEDS: PAROXETINE HCL 10 MG TABLET PO SCH (08:55)
[2020-01-14] MEDS: ASPIRIN EC 81 MG TABLET.DR PO SCH (08:55)
[2020-01-14] MEDS: MULTIVITAMINS,THERAPEUTIC TABLET PO SCH (08:55)
[2020-01-14] MEDS: FOLIC ACID 1 MG TABLET PO SCH (08:55)
[2020-01-14] MEDS: THIAMINE HCL 100 MG TABLET PO SCH (08:56)
[2020-01-14] MEDS: METOPROLOL TARTRATE 25 MG TABLET PO SCH ×2 (08:56→20:53)
[2020-01-14] MEDS: CLONAZEPAM 0.5 MG TABLET PO PRN (11:19)
[2020-01-14 16:00] VITALS: BP 137/59
[2020-01-14 20:18] VITALS: BP 157/72
[2020-01-14] MEDS: ZOLPIDEM 5 MG TABLET PO PRN (23:20)
[2020-01-15 05:04] VITALS: BP 128/64
[2020-01-15] MEDS: PANTOPRAZOLE SODIUM 40 MG TABLET.DR PO SCH (06:05)
[2020-01-15] MEDS: LEVOTHYROXINE SODIUM 175 MCG TABLET PO SCH (06:05)
[2020-01-15] MEDS: METOPROLOL TARTRATE 25 MG TABLET PO SCH ×2 (08:36→20:31)
[2020-01-15] MEDS: FOLIC ACID 1 MG TABLET PO SCH (08:36)
[2020-01-15] MEDS: MULTIVITAMINS,THERAPEUTIC TABLET PO SCH (08:36)
[2020-01-15] MEDS: THIAMINE HCL 100 MG TABLET PO SCH (08:36)
[2020-01-15] MEDS: PAROXETINE HCL 10 MG TABLET PO SCH (08:36)
[2020-01-15] MEDS: ASPIRIN EC 81 MG TABLET.DR PO SCH (08:36)
[2020-01-15] MEDS: CLONAZEPAM 0.5 MG TABLET PO PRN ×2 (11:02→23:24)
[2020-01-15 15:46] VITALS: BP 145/67
[2020-01-15 20:30] VITALS: BP 141/66
[2020-01-16] MEDS: PANTOPRAZOLE SODIUM 40 MG TABLET.DR PO SCH (06:11)
[2020-01-16] MEDS: LEVOTHYROXINE SODIUM 175 MCG TABLET PO SCH (06:11)
--- NOTE | 2020-01-16 06:58 | NUR ---
Patient is awake, alert, resting in bed. No signs and symptoms of distress or SOB room air. No complaint of discomfort or pain. Due medications administered and tolerated well. Patient remain on 1:1 sitter at bedside for safety, fall risk. Patient requested medication to help her sleep, gave her Klonopine, patient slept well through the night. Assisted patient with her needs promptly. Safety measures maintained. Call light within reach.Will continue plan of care, endorse report to next shift.
[2020-01-16 07:30] VITALS: BP 100/47
[2020-01-16] MEDS: METOPROLOL TARTRATE 25 MG TABLET PO SCH ×2 (08:21→20:40)
[2020-01-16] MEDS: FOLIC ACID 1 MG TABLET PO SCH (08:21)
[2020-01-16] MEDS: ASPIRIN EC 81 MG TABLET.DR PO SCH (08:21)
[2020-01-16] MEDS: THIAMINE HCL 100 MG TABLET PO SCH (08:21)
[2020-01-16] MEDS: PAROXETINE HCL 10 MG TABLET PO SCH (08:21)
[2020-01-16] MEDS: MULTIVITAMINS,THERAPEUTIC TABLET PO SCH (08:21)
--- NOTE | 2020-01-16 10:00 | NUR ---
Patient is awake, alert oriented x 3, not in distress. No complain of pain or discomfort. Due medications administered and tolerated well. Held metoprolol due to decreased BP, Dr. Myers made aware with no new order. Assisted with her needs. Call light and frequently used items placed within patient's reach.
[2020-01-16 20:02] VITALS: BP 131/60
[2020-01-17 04:02] VITALS: BP 126/59
[2020-01-17] MEDS: PANTOPRAZOLE SODIUM 40 MG TABLET.DR PO SCH (06:20)
[2020-01-17] MEDS: LEVOTHYROXINE SODIUM 175 MCG TABLET PO SCH (06:20)
--- NOTE | 2020-01-17 06:39 | NUR ---
Shift End Report: Vitals signs are stable, No signs and symptoms of distress or SOB noted. Slept well without PRN sleeping aid. PM care completed. All needs attended too. Maintained safety precautions, bed locked and lowered, x2 trails up. No fall/injury reported.No complaint of pain/discomforts. No significant event reported. Continue current plan of care. will endorse report to next shift
[2020-01-17 08:00] VITALS: BP 96/41
[2020-01-17] MEDS: ASPIRIN EC 81 MG TABLET.DR PO SCH (08:10)
[2020-01-17] MEDS: THIAMINE HCL 100 MG TABLET PO SCH (08:11)
[2020-01-17] MEDS: MULTIVITAMINS,THERAPEUTIC TABLET PO SCH (08:11)
[2020-01-17] MEDS: FOLIC ACID 1 MG TABLET PO SCH (08:11)
[2020-01-17] MEDS: METOPROLOL TARTRATE 25 MG TABLET PO SCH ×2 (08:11→20:11)
[2020-01-17] MEDS: PAROXETINE HCL 10 MG TABLET PO SCH (08:11)
[2020-01-17 16:00] VITALS: BP 132/70
--- NOTE | 2020-01-17 17:38 | NUR ---
Patient remains alert, oriented x 3, not in any acute distress on room air during the shift. She denies any pain or discomfort. All due medications administered and tolerated well. Needs attended to promptly and met. Call light and frequently used items placed within patient's reach
[2020-01-17 20:02] VITALS: BP 141/65
--- NOTE | 2020-01-17 22:30 | NUR ---
Received pt resting comfortably. AAO x3. No acute distress noted. Denies pain/ discomfort. Due med given as ordered. Safety measures maintained. Call light and personal items within reach. Will continue to monitor.
[2020-01-18 04:02] VITALS: BP 134/62
[2020-01-18] MEDS: PANTOPRAZOLE SODIUM 40 MG TABLET.DR PO SCH (06:12)
[2020-01-18] MEDS: LEVOTHYROXINE SODIUM 175 MCG TABLET PO SCH (06:13)
[2020-01-18] MEDS: PAROXETINE HCL 10 MG TABLET PO SCH (08:32)
[2020-01-18] MEDS: MULTIVITAMINS,THERAPEUTIC TABLET PO SCH (08:32)
[2020-01-18] MEDS: ASPIRIN EC 81 MG TABLET.DR PO SCH (08:32)
[2020-01-18] MEDS: FOLIC ACID 1 MG TABLET PO SCH (08:32)
[2020-01-18] MEDS: THIAMINE HCL 100 MG TABLET PO SCH (08:32)
[2020-01-18] MEDS: METOPROLOL TARTRATE 25 MG TABLET PO SCH ×2 (08:34→20:04)
[2020-01-18 08:45] VITALS: BP 108/65
[2020-01-18 15:03] VITALS: BP 113/46
--- NOTE | 2020-01-18 19:12 | NUR ---
patient is independent with adls, ambulatory, no distress noted, no pain, skin intact. kept safe and free from any injury during shift.
[2020-01-18 20:04] VITALS: BP 162/81
--- NOTE | 2020-01-18 20:25 | NUR ---
Received pt resting in bed and watching tv. AAO x3. No acute distress noted. Denies pain/ discomfort. BP 162/ 81, HR 64, scheduled hypertensive med given as ordered. Pt denies dizziness, chest pain, and SOB. Will recheck BP again. Safety measures maintained. Call light and personal items within reach. Will continue to monitor.
--- NOTE | 2020-01-18 21:51 | NUR ---
Pt's BP continues to be elevated. BP 161/79, HR 62. Notified Maycol ENGEL. New order for hydralazine 10 mg PO ONCE. Will carry out order. Continue to monitor.
[2020-01-18] MEDS ORDERED: hydrALAZINE HCL 10 MG TABLET PO ONE (22:00)
[2020-01-19 04:02] VITALS: BP 138/59
[2020-01-19 05:57] LABS: BASOPHILS # (AUTO) 0.1 K/uL (0.0-8.0); BASOPHILS % (AUTO) 1.3 % (0.0-2.0); EOSINOPHILS # (AUTO) 0.2 K/uL (0.0-0.7); HEMATOCRIT 36.4 % (31.2-41.9); HEMOGLOBIN 12.1 g/dL (10.9-14.3); LYMPHOCYTES # (AUTO) 1.3 K/uL (20.0-40.0); LYMPHOCYTES % (AUTO) 24.8 % (20.5-51.5); MEAN CORPUSCULAR HEMOGLOBIN 28.9 uug (24.7-32.8); MEAN CORPUSCULAR HGB CONC 33 g/dL (32.3-35.6); MEAN CORPUSCULAR VOLUME 87.1 fL (75.5-95.3); MONOCYTES # (AUTO) 0.6 K/uL (2.0-10.0); MONOCYTES % (AUTO) 10.7 % (0.0-11.0); NEUTROPHILS # (AUTO) 3.3 K/uL (1.8-8.9); NEUTROPHILS % (AUTO) 60.2 % (38.5-71.5); PLATELET COUNT (AUTO) 190 K/uL (179-408); RED BLOOD CELL COUNT(AUTO) 4.18 MIL/uL (3.63-4.92); WHITE BLOOD COUNT (AUTO) 5.4 K/uL (3.8-11.8)
[2020-01-19 06:10] LABS: BILIRUBIN,TOTAL 0.4 mg/dL (0.2-1.0); CREATININE 0.9 mg/dL (0.6-1.3); MAGNESIUM 1.8 mg/dL (1.8-2.4); PHOSPHOROUS 3.9 mg/dL (2.5-4.9); POTASSIUM 4.1 mmol/L (3.5-5.1); TOTAL PROTEIN, SERUM 5.9 g/dL (6.4-8.2)
[2020-01-19] MEDS: LEVOTHYROXINE SODIUM 175 MCG TABLET PO SCH (06:10)
[2020-01-19] MEDS: PANTOPRAZOLE SODIUM 40 MG TABLET.DR PO SCH (06:10)
[2020-01-19 08:00] VITALS: BP 110/54
[2020-01-19] MEDS: MULTIVITAMINS,THERAPEUTIC TABLET PO SCH (08:44)
[2020-01-19] MEDS: PAROXETINE HCL 10 MG TABLET PO SCH (08:44)
[2020-01-19] MEDS: ASPIRIN EC 81 MG TABLET.DR PO SCH (08:44)
[2020-01-19] MEDS: THIAMINE HCL 100 MG TABLET PO SCH (08:44)
[2020-01-19] MEDS: FOLIC ACID 1 MG TABLET PO SCH (08:44)
[2020-01-19] MEDS: METOPROLOL TARTRATE 25 MG TABLET PO SCH ×2 (08:45→20:10)
--- NOTE | 2020-01-19 19:05 | NUR ---
Patient remains alert, oriented x 3, not in any distress during the shift. She denies any pain or discomfort. Assisted with her needs promptly. Due medications administered and tolerated well. Patient participated with PT and OT and tolerated well. Call light and frequently used items placed within patient's reach. Safety measures maintained. Endorsed accordingly to investment director RN.
--- NOTE | 2020-01-19 19:35 | NUR ---
In the bathroom during initial rounds, assisted by HOSE TESTER. Safety measures and fall precaution maintained. HOSE TESTER remain in the room for safety monitoring. Continue care as planned.
[2020-01-19 20:10] VITALS: BP 150/73
[2020-01-20 04:00] VITALS: BP 121/57
[2020-01-20] MEDS: LEVOTHYROXINE SODIUM 175 MCG TABLET PO SCH (05:31)
[2020-01-20] MEDS: PANTOPRAZOLE SODIUM 40 MG TABLET.DR PO SCH (05:31)
--- NOTE | 2020-01-20 05:52 | NUR ---
Shift End Report: VS stable. Slept well. No complaint presented. All needs attended and met. No significant event reported all night. Continue current rehab plan of care.
[2020-01-20 07:45] VITALS: BP 128/61
[2020-01-20] MEDS: THIAMINE HCL 100 MG TABLET PO SCH (08:01)
[2020-01-20] MEDS: METOPROLOL TARTRATE 25 MG TABLET PO SCH ×2 (08:01→20:19)
[2020-01-20] MEDS: ASPIRIN EC 81 MG TABLET.DR PO SCH (08:01)
[2020-01-20] MEDS: PAROXETINE HCL 10 MG TABLET PO SCH (08:01)
[2020-01-20] MEDS: FOLIC ACID 1 MG TABLET PO SCH (08:01)
[2020-01-20] MEDS: MULTIVITAMINS,THERAPEUTIC TABLET PO SCH (08:02)
--- NOTE | 2020-01-20 14:43 | NUR ---
INTERDISCIPLINARY TEAM CONFERENCE
--- NOTE | 2020-01-20 15:00 | NUR ---
patient is alert, oriented x3,verbally responsive, able to make needs known, independent with adls, no distress noted, tolerated meals and rehab exercises well.
[2020-01-20 16:14] VITALS: BP 140/78
--- NOTE | 2020-01-20 19:35 | NUR ---
Awake, watching TV during initial rounds. Denies any pain/discomforts at this time. No s/s of respiratory distress. Safety measures and fall precaution maintained. Continue care as planned.
[2020-01-20 20:02] VITALS: BP 148/73
[2020-01-21] MEDS: ZOLPIDEM 5 MG TABLET PO PRN (01:07)
--- NOTE | 2020-01-21 05:37 | NUR ---
Shift End Report: VS stable. Slept well. No complaint presented. No fall/injury. All needs attended and met. No significant even reported all night. Continue current rehab plan of care.
[2020-01-21] MEDS: PANTOPRAZOLE SODIUM 40 MG TABLET.DR PO SCH (06:11)
[2020-01-21] MEDS: LEVOTHYROXINE SODIUM 175 MCG TABLET PO SCH (06:11)
[2020-01-21 06:32] VITALS: BP 121/59
--- NOTE | 2020-01-21 07:50 | NUR ---
Patient is A/O x 4, able to make needs known. Sleeping comfortably at this time. NO acute distress noted. Greeted patient. NO c/o pain. on PT/OT therapy. Safety measures in place, call light left at bed side and will continue with care.
[2020-01-21 08:26] VITALS: BP 144/67
[2020-01-21] MEDS: ASPIRIN EC 81 MG TABLET.DR PO SCH (09:45)
[2020-01-21] MEDS: PAROXETINE HCL 10 MG TABLET PO SCH (09:45)
[2020-01-21] MEDS: THIAMINE HCL 100 MG TABLET PO SCH (09:45)
[2020-01-21] MEDS: MULTIVITAMINS,THERAPEUTIC TABLET PO SCH (09:46)
[2020-01-21] MEDS: FOLIC ACID 1 MG TABLET PO SCH (09:46)
[2020-01-21] MEDS: METOPROLOL TARTRATE 25 MG TABLET PO SCH ×2 (09:46→20:35)
[2020-01-21 16:07] VITALS: BP 140/63
--- NOTE | 2020-01-21 18:22 | NUR ---
Patient in room watching TV, No acute distress. VS stable. Patient independent for most of the care. on continous PT/OT therapy. Due meds tolerated, needs met and attended and will continue with care.
--- NOTE | 2020-01-21 19:28 | NUR ---
End of shift report given to PM nurse.
--- NOTE | 2020-01-21 19:49 | NUR ---
RECEIVED PATIENT AWAKE SITTING IN CHAIR AT BEDSIDE. PATIENT IS A/O X4. VERY PLEASANT WHEN APPROACHED. DENIES PAIN OR DISCOMFORT. NO RESP. DISTRESS NOTED. CALL LIGHT IN REACH. ALL NEEDS ATTENDED. WILL CONTINUE TO MONITOR AND ASSESS.
[2020-01-21 21:03] VITALS: BP 131/62
[2020-01-22] MEDS: ZOLPIDEM 5 MG TABLET PO PRN (00:04)
[2020-01-22] MEDS: PANTOPRAZOLE SODIUM 40 MG TABLET.DR PO SCH ×2 (06:04→06:22)
[2020-01-22] MEDS: LEVOTHYROXINE SODIUM 175 MCG TABLET PO SCH ×2 (06:04→06:22)
--- NOTE | 2020-01-22 06:24 | NUR ---
PATIENT ASLEEP IN BED. WENT INTO ROOM TO GIVE PATIENT AM SYNTHROID AND PROTONIX. PATIENT IS ASLEEP. DOES NOT WANT TO WAKE UP AND TAKE AT THIS TIME. WILL ENDORSE TO AM SHIFT TO ADMINISTER. ALL NEEDS ATTENDED. WILL CONTINUE TO MONITOR AND ASSESS.
--- NOTE | 2020-01-22 07:34 | NUR ---
patient is in bed, no sob, resp even nonlabored, no distress noted
[2020-01-22 08:12] VITALS: BP 142/70
[2020-01-22] MEDS: MULTIVITAMINS,THERAPEUTIC TABLET PO SCH (08:33)
[2020-01-22] MEDS: ASPIRIN EC 81 MG TABLET.DR PO SCH (08:33)
[2020-01-22] MEDS: THIAMINE HCL 100 MG TABLET PO SCH (08:33)
[2020-01-22] MEDS: PAROXETINE HCL 10 MG TABLET PO SCH (08:34)
[2020-01-22] MEDS: FOLIC ACID 1 MG TABLET PO SCH (08:34)
[2020-01-22] MEDS: METOPROLOL TARTRATE 25 MG TABLET PO SCH (08:38)
[2020-01-22 15:59] VITALS: BP 150/60
--- NOTE | 2020-01-22 16:35 | NUR ---
Pt received, no acute distress, pain , or SOB. VSS. Pt seen by MD. Discharge orders received. Discharge paperwork reviewed with Pt, signed, and copies placed in chart. RX medications discussed. 9 medications from home returned. Belongings accounted for. Skin integrity intact, no wound photos necessary. All discharge concerns addressed including follow up appointments with Dr. Rodriguez to be scheduled by Pt. Pt awaiting private transport from family friend. Call light within reach. Will continue to monitor.
--- NOTE | 2020-01-22 16:58 | NUR ---
Pt's family friend arrived, waiting outside of hospital lobby. Pt safety transferred via wheelchair to private vehicle with family friend driving. ID band removed. Discharge paperwork reviewed again. All concerns addressed. Will remove Pt from system shortly.
== END 2020-01-22 17:00 | disposition home health service (06) | DRG 280 ==
LOC: UNDOADMIN 00:34 → MEDSURG3 01-10 00:34 → UNDOADMIN 01-10 00:34
PROVIDERS: ADMIT Physical Medicine & Rehabilitation Pain Medicine; ATTEND Physical Medicine & Rehabilitation Pain Medicine
DX: I48.0 Paroxysmal atrial fibrillation (principal); E43 Unspecified severe protein-calorie malnutrition; I21.A1 Myocardial infarction type 2; G92 Toxic encephalopathy; N17.0 Acute kidney failure with tubular necrosis; E22.2 Syndrome of inappropriate secretion of antidiuretic hormone; I50.32 Chronic diastolic (congestive) heart failure; E89.0 Postprocedural hypothyroidism; Z85.850 Personal history of malignant neoplasm of thyroid; F32.9 Major depressive disorder, single episode, unspecified; I11.0 Hypertensive heart disease with heart failure; I25.10 Atherosclerotic heart disease of native coronary artery without angina pectoris; M19.90 Unspecified osteoarthritis, unspecified site; M81.0 Age-related osteoporosis without current pathological fracture; Z91.81 History of falling; Z86.73 Personal history of transient ischemic attack (TIA), and cerebral infarction without residual deficits; M48.02 Spinal stenosis, cervical region; G47.00 Insomnia, unspecified; R53.1 Weakness; F03.90 Unspecified dementia, unspecified severity, without behavioral disturbance, psychotic disturbance, mood disturbance, and anxiety; F09 Unspecified mental disorder due to known physiological condition; F10.10 Alcohol abuse, uncomplicated; F41.9 Anxiety disorder, unspecified; R73.9 Hyperglycemia, unspecified; Z96.652 Presence of left artificial knee joint; Z88.8 Allergy status to other drugs, medicaments and biological substances; T43.225A Adverse effect of selective serotonin reuptake inhibitors, initial encounter; Y92.009 Unspecified place in unspecified non-institutional (private) residence as the place of occurrence of the external cause
CPT/HCPCS: 36415; 83735; 84100; 85025

== ENCOUNTER 2020-01-05 23:30 | Inpatient (IN) | payer MEDICARE ==
[~2020-01-05] VITALS: Ht 170.2 cm; Wt 67.1 kg
--- NOTE | 2020-01-05 23:37 | NUR ---
Patient BIB [facility] via gurney. c/o AMS unknown last good time per [facility]. Patient noted with tachypnea and confusion. 12 lead EKG showed Afib RVR with rate of 210. Speech is clear, no cough noted. initial vitals upon arrival as follows: BP 123/90 P210 RR28 T 98.7. Per [facility] patient was seen in bathroom unconscious with bottle of ETOH nearby
[2020-01-05] MEDS ORDERED: DILTIAZEM HCL 50 MG IV ONE (23:41)
[2020-01-05] MEDS ORDERED: DILTIAZEM HCL 25 MG IV IV ONE (23:45)
[2020-01-05] MEDS ORDERED: IV NORMAL SALINE 500 ML BAG IV ONE (23:45)
[2020-01-05] MEDS ORDERED: DILTIAZEM HCL IV 125 MG in IV DEXTROSE 5% 100 ML IV ONE (23:45)
[2020-01-05 23:58] LABS: ABG BASE EXCESS -3.4 mmol/L; ABG HCO3 16.6 mmol/L; ABG PCO2 19.8 mmHg (35.0-45.0); ABG PH 7.542 (7.350-7.450); ABG PO2 280.5 mmHg (75.0-100.0); ABG SITE RIGHT RADIAL; COHb 0.7 % (0.5-1.5); MetHb 0.3 % (0.0-1.5)
[2020-01-06] VITALS (26 sets, daily range): BP systolic 86–131; BP diastolic 46–87
[2020-01-06] MEDS ORDERED: LORAZEPAM 2 MG/1 ML VIAL IV ONE
[2020-01-06] MEDS ORDERED: DILTIAZEM HCL 25 MG IV ONE
[2020-01-06] MEDS ORDERED: DILTIAZEM HCL 50 MG IV ONE
[2020-01-06] MEDS ORDERED: LORAZEPAM 2 MG/1 ML VIAL ONE (00:06)
[2020-01-06 00:12] LABS: ETHANOL < 3 MG/DL (0-0)
[2020-01-06 00:14] LABS: BASOPHILS % (AUTO) 0.3 % (0.0-2.0); EOSINOPHILS # (AUTO) 0.1 K/uL (0.0-0.7); EOSINOPHILS % (AUTO) 1.1 % (0.0-7.0); HEMATOCRIT 40.4 % (31.2-41.9); HEMOGLOBIN 13.6 g/dL (10.9-14.3); LYMPHOCYTES # (AUTO) 1.3 K/uL (20.0-40.0); LYMPHOCYTES % (AUTO) 12.1 % (20.5-51.5); MEAN CORPUSCULAR HEMOGLOBIN 28.9 uug (24.7-32.8); MEAN CORPUSCULAR HGB CONC 34 g/dL (32.3-35.6); MEAN CORPUSCULAR VOLUME 85.6 fL (75.5-95.3); MONOCYTES # (AUTO) 0.9 K/uL (2.0-10.0); MONOCYTES % (AUTO) 8.1 % (0.0-11.0); NEUTROPHILS # (AUTO) 8.3 K/uL (1.8-8.9); NEUTROPHILS % (AUTO) 78.4 % (38.5-71.5); PLATELET COUNT (AUTO) 221 K/uL (179-408); RED BLOOD CELL COUNT(AUTO) 4.72 MIL/uL (3.63-4.92); WHITE BLOOD COUNT (AUTO) 10.6 K/uL (3.8-11.8)
--- NOTE | 2020-01-06 00:20 | NUR ---
Increased titration of IV Cardizem to 10mg/hr
[2020-01-06 00:24] LABS: ALANINE AMINOTRANSFERASE 25 U/L (14-59); ALKALINE PHOSPHATASE 74 U/L (50-136); ASPARTATE AMINOTRANSFERASE 46 U/L (15-37); BILIRUBIN,DIRECT 0.2 mg/dL (0.0-0.2); BILIRUBIN,TOTAL 0.7 mg/dL (0.2-1.0); CARBON DIOXIDE 21 mmol/L (21-32); CREATININE 1.4 mg/dL (0.6-1.3); GLUCOSE 208 mg/dL (74-106); TOTAL PROTEIN, SERUM 7.3 g/dL (6.4-8.2); UREA NITROGEN, BLOOD 16 mg/dL (7-18)
[2020-01-06 00:27] LABS: CHLORIDE 80 mmol/L (98-107)
[2020-01-06] MEDS ORDERED: IV NORMAL SALINE 1000 ML BAG IV ONE (00:45)
--- NOTE | 2020-01-06 00:46 | NUR ---
Increased titration of Cardizem by 15mg/hr
--- NOTE | 2020-01-06 01:04 | NUR ---
patient in bed sleeping. Breathing even and unlabored. no SOB noted. NAD noted
--- NOTE | 2020-01-06 01:18 | NUR ---
Dr. Mason on panel call with TORO Motta.
[2020-01-06] MEDS ORDERED: DILTIAZEM HCL IV 125 MG in IV NORMAL SALINE 100 ML IV PRN (01:30)
[2020-01-06] MEDS ORDERED: ONDANSETRON 4 MG/2 ML VIAL IV PRN (01:30)
[2020-01-06] MEDS ORDERED: POTASSIUM CHLORIDE 20 MEQ TAB.PRT.SR PO ONE (01:30)
[2020-01-06] MEDS ORDERED: IV SODIUM CHLORIDE 3% 500 ML IV PRN (01:30)
[2020-01-06] MEDS ORDERED: MAGNESIUM HYDROXIDE 30 ML LIQUID UDC PO PRN (01:30)
[2020-01-06] MEDS ORDERED: INSULIN REGULAR, HUMAN 300 UNIT/3 ML VIAL SQ PRN (01:30)
[2020-01-06] MEDS ORDERED: MORPHINE SULFATE 2 MG/1 ML DISP.SYRIN IV PRN (01:30)
[2020-01-06] MEDS ORDERED: Z GUARD REMEDY PASTE 57 GM TUBE TOP PRN (01:30)
[2020-01-06] MEDS ORDERED: DEXTROSE 50% 50 ML DISP.SYRIN IV PRN (01:30)
--- NOTE | 2020-01-06 02:03 | NUR ---
Tyrel Motta at bedside to evaluate patient
--- NOTE | 2020-01-06 02:10 | NUR ---
Pt. admitted to CC , under care of Tyrel Motta Belongs List completed, MRSA swab done IV Cardizem to finish infusing in CCU. Kelly PINA aware
--- NOTE | 2020-01-06 02:50 | NUR ---
Admitted an 84 y.o female patient from ER DX: Afib with RVR and Hyponatremia. To CCU2. AA but very confused, disoriented and hard of hearing. Assessment completed. Denies pain. O2 2 L NC administered. On Cardizem drip via infusion pump at 15 mg/H. Assessment completed.
--- NOTE | 2020-01-06 03:00 | NUR ---
Copeland catheter F#16 inserted aseptically; with clear yellow urine. Specimen obtained and sent to lab.
--- NOTE | 2020-01-06 03:30 | NUR ---
Cardizem drip decreased to 10 mg/H. BP systole 80's. Monitor remains SR.
[2020-01-06 04:59] LABS: *BILIRUBIN,URIN NEGATIVE (NEGATIVE); *BLOOD, URINE 1+ (NEGATIVE); *CLARITY,URINE CLEAR (CLEAR); *COLOR,URINE YELLOW (YELLOW); *KETONES,URINE 2+ (NEGATIVE); *UROBILINOGEN,URINE 0.2 E.U./dl (NORMAL); LEUKOCYTE ESTERASE ,URINE NEGATIVE (NEGATIVE); NITRITE, URINE NEGATIVE (NEGATIVE); PH,URINE 6.5 (5.0-8.0); UGLUCOSE TRACE (NEGATIVE)
--- NOTE | 2020-01-06 05:00 | NUR ---
Cardizem drip at 5 mg/H. Remains on SR, BPs in the 90's. Sleeping; NAD noted.
[2020-01-06 05:14] LABS: *AMPHETAMINE, URINE NEGATIVE (NEGATIVE); *BARBITURATE, URINE NEGATIVE (NEGATIVE); *CANNABINOID, URINE NEGATIVE (NEGATIVE); *COCCAINE, URINE NEGATIVE (NEGATIVE); *OPIATE, URINE NEGATIVE (NEGATIVE); *PHENCYCLIDINE SCREEN,URINE NEGATIVE (NEGATIVE)
[2020-01-06 05:18] LABS: BACTERIA,URINE FEW /HPF (NONE SEEN); SQUAMOUS EPITHELIAL CELL,UR NONE SEEN /HPF (NONE SEEN); WBC,URINE 0-3 /HPF (0-3)
[2020-01-06 05:19] LABS: MUCUS,URINE FEW /LPF (0-FEW)
[2020-01-06 06:20] LABS: POTASSIUM 3.7 mmol/L (3.5-5.1)
[2020-01-06] MEDS: BLOOD SUGAR DIAGNOSTIC 1 EACH STRIP VI SCH ×4 (06:36→21:16)
--- NOTE | 2020-01-06 06:57 | NUR ---
Spoke to Leonardo Motta re: labs and patient's condition. Order received.
--- NOTE | 2020-01-06 07:20 | NUR ---
Receive patient in bed asleep, no distress noted at this time. Patient is sinus rhythm on the monitor, 2l nasal cannula, vargas draining clear yellow urine. Bed in low position, side rails up x2. Bed alarm set.
[2020-01-06] MEDS: LEVOTHYROXINE SODIUM 150 MCG TABLET PO SCH (08:17)
[2020-01-06] MEDS: PANTOPRAZOLE SODIUM 40 MG VIAL IV SCH (08:18)
[2020-01-06] MEDS: METOPROLOL TARTRATE 25 MG TABLET PO SCH ×2 (08:18→21:19)
[2020-01-06] MEDS ORDERED: ASPIRIN 325 MG TABLET PO SCH (09:00)
--- NOTE | 2020-01-06 09:25 | NUR ---
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 Mathew to see if we could get a list of medications. Office faxed over their list of meds that they had. Patients neighbor will be bringing in medications from home also.
[2020-01-06] MEDS ORDERED: VALS80TA2 PO (09:51)
[2020-01-06] MEDS ORDERED: DILT240C99 PO (09:51)
[2020-01-06] MEDS ORDERED: [UNRECOGNIZED DRUG - CODE] PO (09:51)
[2020-01-06] MEDS ORDERED: CLON0.5T4 PO (09:51)
[2020-01-06] MEDS ORDERED: OLME20TA13 PO (09:51)
[2020-01-06] MEDS ORDERED: METO50TA7 PO (09:51)
[2020-01-06] MEDS ORDERED: ZOLP10TA2 PO (09:51)
--- NOTE | 2020-01-06 10:00 | NUR ---
Patient seen by Dr. Gamboa. Full report given.
[2020-01-06 10:21] LABS: CREATININE 0.9 mg/dL (0.6-1.3); POTASSIUM 3.9 mmol/L (3.5-5.1)
[2020-01-06] MEDS ORDERED: ZOLPIDEM 5 MG TABLET PO PRN (11:45)
--- NOTE | 2020-01-06 14:30 | NUR ---
Patient seen by Dr. Ventura full report given.
--- NOTE | 2020-01-06 14:39 | NUR ---
Received orders to transfer patient to telemetry. Cardizem drip Discontinued.
[2020-01-06 15:06] LABS: CREATININE 1.2 mg/dL (0.6-1.3); POTASSIUM 4.3 mmol/L (3.5-5.1)
--- NOTE | 2020-01-06 15:59 | NUR ---
Received report from YOVANI Mccurdy. Addendum: 01/06/20 at 1635 by MOLLY JOHNSON RN Received patient, patient resting in bed. No distress noted or complaints of pain. monitoring and evaluation advisor in place, SR. HOGAN Will continue to carry out plan of care. Safety precautions in place.
--- NOTE | 2020-01-06 16:00 | NUR ---
Report given to Karla PINA, patient transferred via wheelchair to telemetry. Patient remains on room. Pleasantly confused but redirectable. No distress noted at this time.
--- NOTE | 2020-01-06 18:29 | NUR ---
Patient stable, on property assessment monitor SR. Alert and oriented, periods of confusion although able to reorient. VSS, on RA. Copeland catheter in place. Fall precautions in place, patient is a high fall risk. Blood sugar checks in place, WNL. Ambulatory with SBA. Will endorse care to oncoming shift.
--- NOTE | 2020-01-06 18:53 | NUR ---
Patient is impulsive, extremely high fall risk. Sitter 1:1 order placed. Yolette Sena RN made aware, she made aware Sana Liu warehouse shipping associate.
--- NOTE | 2020-01-06 19:30 | NUR ---
Patient received in bed. Patient alert and awake. Patient have no s/s of acute distress. Patient have no s/s of pain. Vitals are stable. Safety measures in place. Bed low and locked position, call lights within reach. Will continue with the plan of care.
[2020-01-07 00:04] VITALS: BP 120/65
[2020-01-07 04:04] VITALS: BP 134/59
[2020-01-07 04:08] VITALS: BP 116/58
[2020-01-07 06:02] LABS: BASOPHILS % (AUTO) 0.4 % (0.0-2.0); EOSINOPHILS # (AUTO) 0.2 K/uL (0.0-0.7); EOSINOPHILS % (AUTO) 2.2 % (0.0-7.0); HEMOGLOBIN 12.3 g/dL (10.9-14.3); LYMPHOCYTES # (AUTO) 1.4 K/uL (20.0-40.0); LYMPHOCYTES % (AUTO) 19.3 % (20.5-51.5); MEAN CORPUSCULAR HEMOGLOBIN 29.3 uug (24.7-32.8); MEAN CORPUSCULAR HGB CONC 34 g/dL (32.3-35.6); MEAN CORPUSCULAR VOLUME 85.7 fL (75.5-95.3); MONOCYTES # (AUTO) 0.7 K/uL (2.0-10.0); MONOCYTES % (AUTO) 9.3 % (0.0-11.0); NEUTROPHILS # (AUTO) 5.1 K/uL (1.8-8.9); NEUTROPHILS % (AUTO) 68.8 % (38.5-71.5); PLATELET COUNT (AUTO) 167 K/uL (179-408); WHITE BLOOD COUNT (AUTO) 7.4 K/uL (3.8-11.8)
[2020-01-07 06:37] LABS: BILIRUBIN,TOTAL 0.7 mg/dL (0.2-1.0); CREATININE 0.9 mg/dL (0.6-1.3); MAGNESIUM 1.7 mg/dL (1.8-2.4); PHOSPHOROUS 2.4 mg/dL (2.5-4.9); TOTAL PROTEIN, SERUM 5.9 g/dL (6.4-8.2); URIC ACID 3.4 mg/dL (2.6-6.0)
[2020-01-07] MEDS: LEVOTHYROXINE SODIUM 150 MCG TABLET PO SCH (06:50)
[2020-01-07] MEDS: BLOOD SUGAR DIAGNOSTIC 1 EACH STRIP VI SCH ×4 (06:55→20:27)
--- NOTE | 2020-01-07 07:09 | NUR ---
Patient slept intermittently throughout the night. Patient awake and alert. Patient denies any acute distress. Patient denies any pain. Needs attended. Vitals are stable. Safety measures in place. Will endorse to accordingly to the oncoming nurse.
[2020-01-07 07:39] LABS: THYROID STIMULATING HORMONE 6.217 mIU/mL (0.358-3.740)
[2020-01-07] MEDS ORDERED: PAROXETINE HCL 12.5 MG PO SCH (09:00)
[2020-01-07] MEDS: PANTOPRAZOLE SODIUM 40 MG VIAL IV SCH (09:17)
[2020-01-07] MEDS: NEUTRA PHOS PACKET PO SCH ×3 (09:17→17:11)
[2020-01-07] MEDS: MAGNESIUM OXIDE 400 MG TABLET PO SCH ×2 (09:17→17:11)
[2020-01-07] MEDS: ASPIRIN EC 81 MG TABLET.DR PO SCH (09:17)
[2020-01-07] MEDS: PAROXETINE HCL 10 MG TABLET PO SCH (09:18)
[2020-01-07] MEDS: METOPROLOL TARTRATE 25 MG TABLET PO SCH ×2 (09:31→20:27)
--- NOTE | 2020-01-07 10:00 | NUR ---
AWAKE ALERT ORIENTED HAS PEROIDS OF FORGETFULNESS DOES NOT REMEMBER WHY SHE CAME HERE OR WHAT HAPPENED REORIENTED AND REASSURED CONTINUES TO ATTEMPT TO GET OUT OF BED SHE IS WEAK AND AT RISK FOR FALL RELATED TO POOR SAFETY AWARENESS SHE HAS ONE ONE SITTER FPR SAFETY WILL CONTINUE TO OBSERVE.
--- NOTE | 2020-01-07 11:51 | NUR ---
PATIENT SEEN AND EXAMINED BY DR ALEJANDRO MAG LEVEL IS 1.7 AND PHOS IS 2.4 WITH NEW ORDERS AND NOTED.
[2020-01-07 12:00] VITALS: BP 126/77
[2020-01-07] MEDS ORDERED: MAGNESIUM SULFATE/D5W 100 ML IV SCH (12:00)
[2020-01-07] MEDS ORDERED: NEUTRA PHOS PACKET PO ONE (12:00)
--- NOTE | 2020-01-07 16:00 | NUR ---
UP AND ASSISTED AMBULATORY IN THE HALLWAY WITH SLOW STEADY GAIT WITH THE FRONT WHEEL WALKER AND BACK TO BED.
--- NOTE | 2020-01-07 19:30 | NUR ---
Patient seen and examined by Dr. Rendon w/ new orders, december d/c F/C in AM
[2020-01-07] MEDS ORDERED: ZOLPIDEM 5 MG TABLET PO PRN (20:15)
[2020-01-07] MEDS: ACETAMINOPHEN 325 MG TABLET PO PRN (20:28)
[2020-01-07 20:43] VITALS: BP 142/68
[2020-01-07] MEDS: ZOLPIDEM 5 MG TABLET PO PRN (23:25)
[2020-01-08 04:50] VITALS: BP 143/62
[2020-01-08] MEDS: LEVOTHYROXINE SODIUM 175 MCG TABLET PO SCH (06:18)
[2020-01-08] MEDS: PANTOPRAZOLE SODIUM 40 MG TABLET.DR PO SCH (06:18)
[2020-01-08] MEDS: BLOOD SUGAR DIAGNOSTIC 1 EACH STRIP VI SCH ×2 (06:46→11:58)
--- NOTE | 2020-01-08 06:50 | NUR ---
Patient slept well after taking sleeping pill. No SOB noted. Afebrile. IV infiltrated, refused to be inserted. Cont on 1:1 sitter for safety. F/C removed. All needs attended. Will endorse accordingly
[2020-01-08] MEDS ORDERED: LEVOTHYROXINE SODIUM 150 MCG TABLET PO SCH (07:00)
[2020-01-08] MEDS: MAGNESIUM OXIDE 400 MG TABLET PO SCH ×2 (08:05→16:51)
[2020-01-08] MEDS: ASPIRIN EC 81 MG TABLET.DR PO SCH (08:05)
[2020-01-08] MEDS: PAROXETINE HCL 10 MG TABLET PO SCH (08:05)
[2020-01-08] MEDS: METOPROLOL TARTRATE 25 MG TABLET PO SCH ×2 (08:05→21:00)
[2020-01-08] MEDS: ACETAMINOPHEN 325 MG TABLET PO PRN (09:00)
--- NOTE | 2020-01-08 09:00 | NUR ---
AWAKE ALERT AND AWARE EVEN THOUGH SHE IS HARD OF HEARING AND SOMEWHAT FORGETFUL STATED THAT SHE DID NOT SLEEP WELL LAST NOC DESPITE THE FACT THAT SHE WAS GIVEN A SEDATIVE LAST NITE ALSO C/O GENERALISED PAIN MEDICATED WITH TYLENOL ORDERED MADE COMFORTABLE AND ENCOURAGED HER TO TRY TO RELAX ANG MAY BE TAKE A NAP
--- NOTE | 2020-01-08 09:00 | NUR ---
GARZA CATH WAS REMOVED THIS MORNING ORDERED AND PATIENT IS VOIDING IN THE BATHROOM SO FAR 2 TIMES WITH NO DIFFICULTY.
--- NOTE | 2020-01-08 11:00 | NUR ---
PATIENT SEEN AND EXAMINED BY PHYSICAL THERAPIST FOR EVALUATION AND SHE STATED THAT PATIENT COULD BENEFIT FROM ACUTE REHAB STATED WILL INFORM THE DOCTOR
[2020-01-08 12:01] VITALS: BP 127/70
[2020-01-08 14:00] VITALS: BP 152/71
--- NOTE | 2020-01-08 18:00 | NUR ---
DR ALEJANDRO HERE SEEN PATIENT WITH LAB ORDERS STATED WILL CALL THE PATIENTS SON RE PLAN OF CARE TOMORROW.PATIENT IS AWAKE ALERT ORIENTED BUT FORGETFUL COOPERATIVE AND COMPLIANT REMAINS ON ONE ON ONE SITTER OBSERVATION FOR SAFETY SHE IS VERT REDIRECTABLE WILL CONTINUE TO OBSERVE.
--- NOTE | 2020-01-08 19:00 | NUR ---
PATIENT ALERT ORIENTED, NO SOB NO CHEST PAIN , TELE MONITOR SINUS RHYTHM A FIB CONTROLLED. PATIENT HAS NO COMPLAIN OF PAIN AT THIS TIME. CONT TO MONITOR. PATIENT CONTINUE 1;1 SITTER FOR SAFETY, RISK FOR FALL. CONT TO MONITOR.
[2020-01-08] MEDS: ZOLPIDEM 5 MG TABLET PO PRN (21:48)
--- NOTE | 2020-01-08 21:49 | NUR ---
lopressor 25 mg held hr 57.
[2020-01-08 22:00] VITALS: BP 131/69
[2020-01-09] VITALS (7 sets, daily range): BP systolic 127–153; BP diastolic 60–79
[2020-01-09] MEDS: LEVOTHYROXINE SODIUM 175 MCG TABLET PO SCH (06:03)
[2020-01-09] MEDS: PANTOPRAZOLE SODIUM 40 MG TABLET.DR PO SCH (06:03)
[2020-01-09 06:53] LABS: BASOPHILS % (AUTO) 0.8 % (0.0-2.0); EOSINOPHILS # (AUTO) 0.2 K/uL (0.0-0.7); EOSINOPHILS % (AUTO) 3.2 % (0.0-7.0); HEMATOCRIT 39.5 % (31.2-41.9); HEMOGLOBIN 13.4 g/dL (10.9-14.3); LYMPHOCYTES # (AUTO) 1.5 K/uL (20.0-40.0); LYMPHOCYTES % (AUTO) 22.3 % (20.5-51.5); MEAN CORPUSCULAR HEMOGLOBIN 28.8 uug (24.7-32.8); MEAN CORPUSCULAR HGB CONC 34 g/dL (32.3-35.6); MEAN CORPUSCULAR VOLUME 85.3 fL (75.5-95.3); MONOCYTES # (AUTO) 0.6 K/uL (2.0-10.0); MONOCYTES % (AUTO) 8.8 % (0.0-11.0); NEUTROPHILS # (AUTO) 4.2 K/uL (1.8-8.9); NEUTROPHILS % (AUTO) 64.9 % (38.5-71.5); PLATELET COUNT (AUTO) 190 K/uL (179-408); RED BLOOD CELL COUNT(AUTO) 4.63 MIL/uL (3.63-4.92); WHITE BLOOD COUNT (AUTO) 6.5 K/uL (3.8-11.8)
[2020-01-09 07:03] LABS: BILIRUBIN,TOTAL 0.4 mg/dL (0.2-1.0); MAGNESIUM 2.5 mg/dL (1.8-2.4); PHOSPHOROUS 3.4 mg/dL (2.5-4.9); POTASSIUM 4.1 mmol/L (3.5-5.1); TOTAL PROTEIN, SERUM 6.3 g/dL (6.4-8.2)
[2020-01-09] MEDS: PAROXETINE HCL 10 MG TABLET PO SCH (09:17)
[2020-01-09] MEDS: METOPROLOL TARTRATE 25 MG TABLET PO SCH ×2 (09:18→20:36)
[2020-01-09] MEDS: ASPIRIN EC 81 MG TABLET.DR PO SCH (09:18)
--- NOTE | 2020-01-09 13:43 | NUR ---
Urology Nurse Consultation: 1:10pm: SW met with patient today. Patient was lying down in her hospital bed, awake, and receptive to meeting with this SW. Patient is an 84 year old female, alert and oriented. Per hospital records, and patient's report, patient was brought to the hospital via paramedics, after being found at home in her bathroom between the toilet and the bath tub. Patient states she does not remember falling, however reported that she got up in the middle of the night because she felt hot, changed into another set of pajamas, and then went to the bathroom. Patient states she does not remember anything after going to the bathroom. Patient states she has a 25 year old student living with her, who happened to find her in the bathroom and called 911. Patient reports being independent with her ADL's and IADL's prior to this hospitalization. According to the case repairer assessment notes, patient's son Amanuel confirmed patient's functional level as being independent. Patient reports having 1 son, Amanuel, a [id number], and 3 grandchildren, who live in [place]. Patient states that she has a good relationship with her son, and has "a wonderful [id number]". Patient discussed some of the medications she takes, including but not limited to, Ambien (as needed), Paxil, Synthroid, and Lipitor. Patient also stated that she drinks about 2 glasses of wine in the evenings. SW generated a discussion about the interactions alcohol can have with some of the medications that patient takes, and suggested for patient to have a discussion with her doctor about the use of wine and medications. Patient was receptive to this discussion, and expressed agreement with speaking with her physician. Patient stated that she has not had other falls in the past, but expressed concern about the possibility of it happening again in the future. SW assessed for the need for a medical alert system, and patient stated that she already has the medic-alert necklace at home. Patient expressed being grateful that she has the student living with her, which gives her some sense of security. Patient also expressed feelings of anxiety related to the current pandemic and how social isolation from family and friends has effected her emotional health. SW allowed patient to express her thoughts and feelings, validated patient's feelings, and provided some supportive counseling. SW assisted patient in exploring some self-care strategies, and patient identified gardening as a past time she enjoys. SW encouraged patient to continue participating in hobbies she enjoys, and encouraged patient to reach out to friends and family by telephone. Patient expressed agreement. Discharge plans discussed with the patient, and patient stated that she plans on returning home once discharged from the hospital. Case management to assist with discharge planning. No further SS interventions needed at this time, however SW will be available to the patient, if needed. Patient thanked KAYLA for her time and support.
[2020-01-09] MEDS ORDERED: CLONAZEPAM 0.5 MG TABLET PO PRN (14:15)
[2020-01-09] MEDS ORDERED: THIAMINE HCL 100 MG TABLET PO SCH (14:15)
[2020-01-09] MEDS ORDERED: MULTIVITAMINS,THERAPEUTIC TABLET PO SCH (14:15)
[2020-01-09] MEDS ORDERED: FOLIC ACID 1 MG TABLET PO SCH (14:15)
[2020-01-09] MEDS: ACETAMINOPHEN 325 MG TABLET PO PRN (14:38)
[2020-01-09] MEDS: ZOLPIDEM 5 MG TABLET PO PRN (20:37)
[2020-01-09] MEDS ORDERED: PARO10TA4 PO (20:54)
[2020-01-09] MEDS ORDERED: MULT-24 PO (20:54)
[2020-01-09] MEDS ORDERED: PANT40TA2 PO (20:54)
[2020-01-09] MEDS ORDERED: CLON0.5T4 PO (20:54)
[2020-01-09] MEDS ORDERED: Folic Acid PO (20:54)
[2020-01-09] MEDS ORDERED: THIA100T13 PO (20:54)
[2020-01-09] MEDS ORDERED: LEVO175T7 PO (20:54)
[2020-01-09] MEDS ORDERED: MAGN400O6 PO (20:54)
[2020-01-09] MEDS ORDERED: ASPI-618 PO (20:54)
--- NOTE | 2020-01-10 00:05 | NUR ---
PATIENT ALERT ORIENTED X3/4, NO SOB NO CHEST PAIN , TELE MONITOR SINUS RHYTHM A FIB CONTROLLED. PATIENT HAS NO COMPLAIN OF PAIN AT THIS TIME. CONT TO MONITOR. PATIENT CONTINUE 1;1 SITTER FOR SAFETY, RISK FOR FALL. CONT TO MONITOR. PATIENT IS BEING DISCHARGED FROM MED SURG AND PUT INTO ACUTE REHABILITATION. CONTINUE PLAN OF CARE WITH REHAB.
== END 2020-01-10 00:14 | DRG 280 ==
LOC: ER 23:33 → CCU 01-06 02:14 → TELE3 01-06 16:38
PROVIDERS: ADMIT Nurse Practitioner Acute Care; ATTEND Internal Medicine
DX: I48.91 Unspecified atrial fibrillation (principal); I21.A1 Myocardial infarction type 2; G92 Toxic encephalopathy; N17.0 Acute kidney failure with tubular necrosis; I50.32 Chronic diastolic (congestive) heart failure; E22.2 Syndrome of inappropriate secretion of antidiuretic hormone; F10.239 Alcohol dependence with withdrawal, unspecified; E86.0 Dehydration; F32.9 Major depressive disorder, single episode, unspecified; F41.9 Anxiety disorder, unspecified; M19.90 Unspecified osteoarthritis, unspecified site; Z79.82 Long term (current) use of aspirin; Z85.850 Personal history of malignant neoplasm of thyroid; Z86.73 Personal history of transient ischemic attack (TIA), and cerebral infarction without residual deficits; Z91.81 History of falling; I25.2 Old myocardial infarction; I25.10 Atherosclerotic heart disease of native coronary artery without angina pectoris; I11.0 Hypertensive heart disease with heart failure; E87.6 Hypokalemia; G47.00 Insomnia, unspecified; M48.02 Spinal stenosis, cervical region; M81.0 Age-related osteoporosis without current pathological fracture; E89.0 Postprocedural hypothyroidism; R73.9 Hyperglycemia, unspecified; I48.0 Paroxysmal atrial fibrillation; Y90.0 Blood alcohol level of less than 20 mg/100 ml; W18.30XA Fall on same level, unspecified, initial encounter; Y93.9 Activity, unspecified; Y92.009 Unspecified place in unspecified non-institutional (private) residence as the place of occurrence of the external cause; Z96.659 Presence of unspecified artificial knee joint; R40.2412 Glasgow coma scale score 13-15, at arrival to emergency department
CPT/HCPCS: 36415; 36600; 70030-TC; 70450; 71045; 80307; 83550; 83735; 84100; 84300; 84443; 84550; 85025; 85730; 93005; 93307; C9113; G0378; G0480; J1815; J2060; J3490; J7030; J7040; J7060

== ENCOUNTER 2020-01-30 16:02 | Inpatient (IN) | payer MEDICARE ==
[~2020-01-30] VITALS: Ht 170.2 cm; Wt 70.3 kg
[~2020-01-30 16:02] MED LIST changes: -ASPI-612 PO; +ASPI-618 PO; +CLON0.5T4 PO; -DILT60TA35 PO; +Folic Acid PO; -LEVO150T8 PO; +LEVO175T7 PO; +MAGN400O6 PO; +MULT-24 PO; +PANT40TA2 PO; -SULF1TAB48 PO; +THIA100T13 PO; +ZOLP10TA2 PO
[2020-01-30] MEDS ORDERED: ONDANSETRON 4 MG/2 ML VIAL IV ONE (16:30)
[2020-01-30] MEDS ORDERED: IV NORMAL SALINE 500 ML BAG IV ONE (16:30)
[2020-01-30 16:40] LABS: BASOPHILS % (AUTO) 0.4 % (0.0-2.0); EOSINOPHILS # (AUTO) 0.1 K/uL (0.0-0.7); EOSINOPHILS % (AUTO) 0.6 % (0.0-7.0); HEMATOCRIT 38.5 % (31.2-41.9); HEMOGLOBIN 13.5 g/dL (10.9-14.3); LYMPHOCYTES # (AUTO) 1.2 K/uL (20.0-40.0); LYMPHOCYTES % (AUTO) 13.9 % (20.5-51.5); MEAN CORPUSCULAR HEMOGLOBIN 29.1 uug (24.7-32.8); MEAN CORPUSCULAR HGB CONC 35 g/dL (32.3-35.6); MEAN CORPUSCULAR VOLUME 83.4 fL (75.5-95.3); MONOCYTES # (AUTO) 0.7 K/uL (2.0-10.0); MONOCYTES % (AUTO) 8.7 % (0.0-11.0); NEUTROPHILS # (AUTO) 6.5 K/uL (1.8-8.9); NEUTROPHILS % (AUTO) 76.4 % (38.5-71.5); PLATELET COUNT (AUTO) 207 K/uL (179-408); RED BLOOD CELL COUNT(AUTO) 4.62 MIL/uL (3.63-4.92); WHITE BLOOD COUNT (AUTO) 8.5 K/uL (3.8-11.8)
[2020-01-30] MEDS ORDERED: ONDANSETRON 4 MG/2 ML VIAL ONE (16:43)
[2020-01-30] MEDS ORDERED: HYDR12.55 PO (16:51)
[2020-01-30 16:55] LABS: BILIRUBIN,DIRECT 0.2 mg/dL (0.0-0.2); POTASSIUM 3.4 mmol/L (3.5-5.1); TOTAL PROTEIN, SERUM 7.3 g/dL (6.4-8.2)
[2020-01-30] MEDS ORDERED: LORAZEPAM 2 MG/1 ML VIAL ONE (16:57)
[2020-01-30] MEDS ORDERED: LORAZEPAM 2 MG/1 ML VIAL IV ONE (17:00)
--- NOTE | 2020-01-30 17:20 | NUR ---
Pt's anxiety subsided considerably, breathing slower and easier, pt states she is a bit light headed.
[2020-01-30] MEDS ORDERED: ASPIRIN 81 MG TAB.CHEW PO ONE (17:45)
[2020-01-30] MEDS ORDERED: ASPIRIN 81 MG TAB.CHEW ONE (17:48)
--- NOTE | 2020-01-30 17:49 | NUR ---
Pt c/o CP/pressure, about 5-6/10, on left side of chest with SOB (chronic issue), nausea (vomited yesterday), and epigastric pain. Pt denies dizziness, minor distress noted, anxiety noted.
--- NOTE | 2020-01-30 18:33 | NUR ---
While escorting pt to bathroom, pt may have had an absence seizure -- pt got rigid and unresponsive, had fixed stare to upper left, and urinated while standing. Episode lasted approximately 10-15 seconds. Lowered pt to floor w/other RN, pt became responsive again but had no memory of the incident. Wheeled pt back to bed, changed gown and pants, placed both rails up on bed and padded them.
[2020-01-30] MEDS ORDERED: Z GUARD REMEDY PASTE 57 GM TUBE TOP PRN (19:15)
[2020-01-30] MEDS ORDERED: MAGNESIUM HYDROXIDE 30 ML LIQUID UDC PO PRN (19:15)
[2020-01-30] MEDS ORDERED: ACETAMINOPHEN 325 MG TABLET PO PRN (19:15)
[2020-01-30] MEDS ORDERED: HYDROCODONE/APAP 5-325MG TABLET PO PRN (19:15)
[2020-01-30] MEDS ORDERED: ONDANSETRON 4 MG/2 ML VIAL IV PRN (19:15)
--- NOTE | 2020-01-30 20:09 | NUR ---
Report given to YOVANI Martin
--- NOTE | 2020-01-30 20:35 | NUR ---
Pt. admitted to Tele Room 304 , under care of Dr. Greer Belongs List completed. All belongings with pt AA/Ox4. Able to speak in complete sentences No s/s distress Denies pain at this time Respiration even and unlabored No N/V/D In stable condition.
--- NOTE | 2020-01-30 20:45 | NUR ---
RECEIVED PT FROM ER VIA [facility]. UNDER THE CARE OF DR. MANJARREZ. DX: SEVERE HYPONATREMIA. ADMISSION PROCESS AN CARE PLAN INITIATED. GROUP HOME ASSESSMENT DONE. PT IN NO ACUTE DISTRESS. IV INTACT. SAFETY AND COMFORT PROVIDED. WILL CONTINUE TO MONITOR.
[2020-01-30 21:00] VITALS: BP 138/82
[2020-01-30] MEDS: IV NS 1000 ML 1,000 ML IV PRN (21:15)
[2020-01-30] MEDS: THIAMINE HCL 100 MG TABLET PO SCH (22:05)
[2020-01-31] VITALS: BP 126/74
[2020-01-31 04:00] VITALS: BP 122/44
--- NOTE | 2020-01-31 06:09 | NUR ---
PT SLEPT INTERMITTENTLY. PT IN NO ACUTE DISTRESS. IV INTACT. PRESCRIBED MEDICATION GIVEN AND PT TOLERATED IT WELL. SAFETY AND COMFORT PROVIDED.WILL ENDORSE TO INCOMING NURSE FOR CONTINUITY OF CARE.
[2020-01-31 06:39] LABS: BASOPHILS % (AUTO) 0.5 % (0.0-2.0); EOSINOPHILS # (AUTO) 0.1 K/uL (0.0-0.7); EOSINOPHILS % (AUTO) 1.9 % (0.0-7.0); LYMPHOCYTES # (AUTO) 1.5 K/uL (20.0-40.0); LYMPHOCYTES % (AUTO) 22.5 % (20.5-51.5); MEAN CORPUSCULAR HEMOGLOBIN 29.1 uug (24.7-32.8); MEAN CORPUSCULAR HGB CONC 35 g/dL (32.3-35.6); MEAN CORPUSCULAR VOLUME 83.4 fL (75.5-95.3); MONOCYTES # (AUTO) 0.8 K/uL (2.0-10.0); MONOCYTES % (AUTO) 11.7 % (0.0-11.0); NEUTROPHILS # (AUTO) 4.3 K/uL (1.8-8.9); NEUTROPHILS % (AUTO) 63.4 % (38.5-71.5); PLATELET COUNT (AUTO) 167 K/uL (179-408); RED BLOOD CELL COUNT(AUTO) 4.01 MIL/uL (3.63-4.92); WHITE BLOOD COUNT (AUTO) 6.9 K/uL (3.8-11.8)
[2020-01-31 06:51] LABS: HEMOGLOBIN 11.7 g/dL (10.9-14.3)
[2020-01-31 06:52] LABS: HEMATOCRIT 33.5 % (31.2-41.9)
[2020-01-31 06:56] LABS: BILIRUBIN,TOTAL 0.8 mg/dL (0.2-1.0); CREATININE 0.9 mg/dL (0.6-1.3); MAGNESIUM 1.6 mg/dL (1.8-2.4); PHOSPHOROUS 3.3 mg/dL (2.5-4.9); POTASSIUM 3.4 mmol/L (3.5-5.1); TOTAL PROTEIN, SERUM 5.7 g/dL (6.4-8.2)
--- NOTE | 2020-01-31 08:00 | NUR ---
Pt is in no acute distress. Tele SNR with pac. Discussed plan of care with pt re: fluid restriction to help increase NA levels and to notify nursing for any c/o cp, and fall precaution implemented. Pt agreeable with plan of care. zio xt holter monitor in left cw noted. IV on right hand patent and ivf infusing as ordered.
[2020-01-31] MEDS ORDERED: MAGNESIUM SULFATE/D5W 100 ML IV SCH (08:30)
[2020-01-31] MEDS: THIAMINE HCL 100 MG TABLET PO SCH ×2 (08:34→09:21)
[2020-01-31] MEDS: FOLIC ACID 1 MG TABLET PO SCH (08:34)
[2020-01-31] MEDS ORDERED: POTASSIUM CHLORIDE 20 MEQ TAB.PRT.SR PO ONE (08:45)
[2020-01-31] MEDS ORDERED: CLONAZEPAM 0.5 MG TABLET PO PRN (08:45)
[2020-01-31] MEDS ORDERED: THIAMINE HCL 100 MG TABLET PO SCH (09:00)
[2020-01-31] MEDS ORDERED: FOLIC ACID/VITAMIN B COMP W-C TABLET PO SCH (09:00)
[2020-01-31] MEDS ORDERED: PAROXETINE HCL 10 MG TABLET PO SCH (09:00)
[2020-01-31] MEDS: ASPIRIN 81 MG TAB.CHEW PO SCH (09:20)
[2020-01-31] MEDS: PAROXETINE HCL 10 MG TABLET PO SCH (09:20)
[2020-01-31] MEDS: MULTIVITAMINS,THERAPEUTIC TABLET PO SCH (09:20)
[2020-01-31] MEDS: METOPROLOL TARTRATE 25 MG TABLET PO SCH ×2 (09:22→21:00)
[2020-01-31] MEDS: LEVOTHYROXINE SODIUM 175 MCG TABLET PO SCH (09:27)
[2020-01-31 10:30] VITALS: BP_SYST 108; BP_SYST 110; BP_SYST 77; BP_DIAS 37; BP_DIAS 47; BP_DIAS 49
[2020-01-31 12:00] VITALS: BP 154/74
[2020-01-31] MEDS: IV NS 1000 ML 1,000 ML IV PRN ×2 (15:21→19:00)
[2020-01-31 16:00] VITALS: BP 142/62
--- NOTE | 2020-01-31 16:00 | NUR ---
Dr sarabia notified of orthostatic b/p drop from supine b/p 108/49- hr 69, sitting b/p 110/47-68 hr, standing b/p 77/37 - hr 68.
[2020-01-31] MEDS: MAGNESIUM SULFATE/D5W 100 ML IV SCH ×2 (16:05→18:47)
[2020-01-31 21:25] VITALS: BP 106/57
[2020-01-31] MEDS: ZOLPIDEM 5 MG TABLET PO PRN (22:11)
[2020-02-01] VITALS (11 sets, daily range): BP systolic 68–159; BP diastolic 36–81
[2020-02-01] MEDS: LEVOTHYROXINE SODIUM 175 MCG TABLET PO SCH (06:15)
--- NOTE | 2020-02-01 06:37 | NUR ---
PATIENT AAOX4. NO S/S OF ACUTE DISTRESS AND V/S STABLE. BP MEDICATIONS HELD LAST NIGHT DUE TO LOW BLOOD PRESSURES AND PATIENT MEDICATION HISTORY. SAFETY PRECAUTIONS PROVIDED. WILL CONTINUE TO MONITOR. Addendum: 02/01/20 at 0637 by ERNIE ALVAREZ RN correction: patient medical history not medication history.
[2020-02-01] MEDS ORDERED: LEVOTHYROXINE SODIUM 175 MCG TABLET PO SCH (07:00)
[2020-02-01 07:53] LABS: CREATININE 0.8 mg/dL (0.6-1.3); MAGNESIUM 2.2 mg/dL (1.8-2.4); PHOSPHOROUS 2.9 mg/dL (2.5-4.9); POTASSIUM 3.5 mmol/L (3.5-5.1)
[2020-02-01] MEDS ORDERED: POTASSIUM CHLORIDE 20 MEQ POWDER PACKET PO ONE (08:00)
[2020-02-01 08:22] LABS: THYROID STIMULATING HORMONE 0.781 mIU/mL (0.358-3.740)
[2020-02-01 08:41] LABS: URIC ACID 3.9 mg/dL (2.6-6.0)
[2020-02-01] MEDS: ASPIRIN 81 MG TAB.CHEW PO SCH (08:42)
[2020-02-01] MEDS: METOPROLOL TARTRATE 25 MG TABLET PO SCH ×2 (08:43→21:02)
[2020-02-01] MEDS: PAROXETINE HCL 10 MG TABLET PO SCH (08:43)
[2020-02-01] MEDS: FOLIC ACID 1 MG TABLET PO SCH (08:43)
[2020-02-01] MEDS: MULTIVITAMINS,THERAPEUTIC TABLET PO SCH (08:43)
[2020-02-01] MEDS: THIAMINE HCL 100 MG TABLET PO SCH (08:48)
[2020-02-01] MEDS: IV NS 1000 ML 1,000 ML IV PRN (10:48)
[2020-02-01] MEDS: ZOLPIDEM 5 MG TABLET PO PRN (21:05)
[2020-02-02] VITALS (7 sets, daily range): BP systolic 86–157; BP diastolic 32–72
[2020-02-02] MEDS: IV NS 1000 ML 1,000 ML IV PRN (03:37)
[2020-02-02] MEDS: LEVOTHYROXINE SODIUM 175 MCG TABLET PO SCH (06:34)
[2020-02-02 07:18] LABS: CREATININE 0.8 mg/dL (0.6-1.3); MAGNESIUM 1.8 mg/dL (1.8-2.4); POTASSIUM 4.1 mmol/L (3.5-5.1)
[2020-02-02] MEDS ORDERED: ASPI-866 PO (08:30)
[2020-02-02] MEDS ORDERED: LEVO175T7 PO (08:30)
[2020-02-02] MEDS: MAGNESIUM SULFATE/D5W 100 ML IV SCH ×2 (08:51→10:11)
[2020-02-02] MEDS: PAROXETINE HCL 10 MG TABLET PO SCH (08:52)
[2020-02-02] MEDS: MULTIVITAMINS,THERAPEUTIC TABLET PO SCH (08:52)
[2020-02-02] MEDS: THIAMINE HCL 100 MG TABLET PO SCH (08:52)
[2020-02-02] MEDS: ASPIRIN 81 MG TAB.CHEW PO SCH (08:52)
[2020-02-02] MEDS: FOLIC ACID 1 MG TABLET PO SCH (08:52)
--- NOTE | 2020-02-02 16:00 | NUR ---
Patient complaining of feeling dizzi. Attending and case management notified. As informed Patient has medical clearance to be dcd.
--- NOTE | 2020-02-02 16:17 | NUR ---
Call [facility] and at this time report given to Racquel Perales all questions answered. Patient will be transferred [place] [facility] [place] [id number] [facility] [address]. Pt's son Mr. Gregory, Red notified of pt's dcd to this facility and both pt and son agreed as informed by case-management see documentation.
--- NOTE | 2020-02-02 18:26 | NUR ---
IV access dcd. 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 Patient aaox4 vitals stable 156/68. Hr 78. RR 18. Afebrile. Patient able to get dress on her own before been dcd and also use of facility. Bedside report given to Transporter Eli.
[2020-02-03] MEDS ORDERED: LEVOTHYROXINE SODIUM 150 MCG TABLET PO SCH (07:00)
[2020-02-03] MEDS ORDERED: LEVOTHYROXINE SODIUM 125 MCG TABLET PO SCH (07:00)
== END 2020-02-02 18:25 | DRG 640 ==
LOC: ER 16:04 → TELE3 20:19 → MEDSURG3 02-02 09:07
PROVIDERS: ADMIT Internal Medicine; ATTEND Nurse Practitioner Acute Care
DX: E87.1 Hypo-osmolality and hyponatremia (principal); G92 Toxic encephalopathy; I50.32 Chronic diastolic (congestive) heart failure; E83.42 Hypomagnesemia; E87.6 Hypokalemia; E89.0 Postprocedural hypothyroidism; F32.9 Major depressive disorder, single episode, unspecified; F41.9 Anxiety disorder, unspecified; I25.10 Atherosclerotic heart disease of native coronary artery without angina pectoris; I95.1 Orthostatic hypotension; Z86.73 Personal history of transient ischemic attack (TIA), and cerebral infarction without residual deficits; Z87.442 Personal history of urinary calculi; M50.30 Other cervical disc degeneration, unspecified cervical region; M48.02 Spinal stenosis, cervical region; I48.0 Paroxysmal atrial fibrillation; G47.00 Insomnia, unspecified; I11.0 Hypertensive heart disease with heart failure; F10.10 Alcohol abuse, uncomplicated; Z79.890 Hormone replacement therapy; Z85.850 Personal history of malignant neoplasm of thyroid; R07.9 Chest pain, unspecified; E86.1 Hypovolemia; R63.1 Polydipsia; M19.90 Unspecified osteoarthritis, unspecified site; Z79.82 Long term (current) use of aspirin
CPT/HCPCS: 36415; 70030-TC; 71045; 71270; 83690; 83735; 84100; 84300; 84443; 84550; 85025; 85730; 93005; A4663; G0378; J2060; J2405; J3475; J7030

== ENCOUNTER 2020-06-18 20:48 | Inpatient (IN) | payer MEDICARE ==
[~2020-06-18] VITALS: Ht 170.2 cm; Wt 73.1 kg
[~2020-06-18 20:48] MED LIST changes: -ASPI-618 PO; +HYDR12.55 PO
--- NOTE | 2020-06-18 21:40 | NUR ---
at bedside for assessment
[2020-06-18] MEDS ORDERED: IV NORMAL SALINE 1000 ML BAG IV ONE (21:45)
[2020-06-18 22:00] LABS: BASOPHILS % (AUTO) 0.4 % (0.0-2.0); EOSINOPHILS # (AUTO) 0.1 K/uL (0.0-0.7); EOSINOPHILS % (AUTO) 1.7 % (0.0-7.0); HEMATOCRIT 30.7 % (31.2-41.9); HEMOGLOBIN 10.6 g/dL (10.9-14.3); LYMPHOCYTES # (AUTO) 0.9 K/uL (20.0-40.0); MEAN CORPUSCULAR HEMOGLOBIN 29.2 uug (24.7-32.8); MEAN CORPUSCULAR HGB CONC 35 g/dL (32.3-35.6); MEAN CORPUSCULAR VOLUME 84.1 fL (75.5-95.3); MONOCYTES # (AUTO) 1.2 K/uL (2.0-10.0); MONOCYTES % (AUTO) 27.5 % (0.0-11.0); NEUTROPHILS # (AUTO) 2.1 K/uL (1.8-8.9); NEUTROPHILS % (AUTO) 48.4 % (38.5-71.5); PLATELET COUNT (AUTO) 171 K/uL (179-408); RED BLOOD CELL COUNT(AUTO) 3.65 MIL/uL (3.63-4.92); WHITE BLOOD COUNT (AUTO) 4.3 K/uL (3.8-11.8)
--- NOTE | 2020-06-18 22:00 | NUR ---
Unable to reconcile home medication list at this time. Pt's daughter stated she will bring in information later.
[2020-06-18 22:02] LABS: CARBON DIOXIDE 30 mmol/L (21-32); CHLORIDE 95 mmol/L (98-107); CREATININE 1.7 mg/dL (0.6-1.3); GLUCOSE 107 mg/dL (74-106); POTASSIUM 3.6 mmol/L (3.5-5.1); UREA NITROGEN, BLOOD 46 mg/dL (7-18)
[2020-06-18 22:06] LABS: ALANINE AMINOTRANSFERASE 19 U/L (14-59); ALKALINE PHOSPHATASE 58 U/L (50-136); ASPARTATE AMINOTRANSFERASE 15 U/L (15-37); BILIRUBIN,DIRECT 0.1 mg/dL (0.0-0.2); BILIRUBIN,TOTAL 0.3 mg/dL (0.2-1.0); LIPASE 83 U/L (73-393); TOTAL PROTEIN, SERUM 6.3 g/dL (6.4-8.2)
[2020-06-18 22:17] LABS: *BILIRUBIN,URIN 1+ (NEGATIVE); *BLOOD, URINE NEGATIVE (NEGATIVE); *CLARITY,URINE CLEAR (CLEAR); *COLOR,URINE YELLOW (YELLOW); *KETONES,URINE NEGATIVE (NEGATIVE); *UROBILINOGEN,URINE 0.2 E.U./dl (NORMAL); LEUKOCYTE ESTERASE ,URINE NEGATIVE (NEGATIVE); NITRITE, URINE NEGATIVE (NEGATIVE); PH,URINE 5.5 (5.0-8.0); UGLUCOSE NEGATIVE (NEGATIVE)
--- NOTE | 2020-06-18 22:18 | NUR ---
urine and stool collected and ssent to lab
[2020-06-18] MEDS ORDERED: METRONIDAZOLE 500 MG/NS 100 ML PIGGYBACK IV ONE (23:15)
[2020-06-18] MEDS ORDERED: ASPIRIN 325 MG TABLET PO ONE (23:15)
[2020-06-18] MEDS ORDERED: levoFLOXacin 250MG /D5W 50 ML IV ONE (23:32)
[2020-06-18] MEDS ORDERED: ASPIRIN 325 MG TABLET ONE (23:32)
[2020-06-18] MEDS ORDERED: METRONIDAZOLE 500 MG/NS 100ML 100 ML IV ONE (23:32)
[2020-06-19] VITALS (13 sets, daily range): BP systolic 82–115; BP diastolic 30–71
[2020-06-19] MEDS ORDERED: CLONAZEPAM 0.5 MG TABLET PO PRN (00:30)
[2020-06-19] MEDS ORDERED: HYDROCODONE/APAP 5-325MG TABLET PO PRN (00:30)
[2020-06-19] MEDS ORDERED: MAGNESIUM HYDROXIDE 30 ML LIQUID UDC PO PRN (00:30)
[2020-06-19] MEDS ORDERED: IV NS 1000 ML 1,000 ML IV PRN (01:00)
[2020-06-19] MEDS ORDERED: Z GUARD REMEDY PASTE 57 GM TUBE TOP PRN (01:00)
--- NOTE | 2020-06-19 01:35 | NUR ---
Patient noted resting in bed, no complaints of pain, no sigs of distress noted
[2020-06-19 03:09] LABS: EOSINOPHILS % (MANUAL) 3 % (0-8); LYMPHOCYTES % (MANUAL) 33 % (20-40); MONOCYTES % (MANUAL) 23 % (2-10); NEUTROPHILS % (MANUAL) 41 % (42-75)
--- NOTE | 2020-06-19 04:22 | NUR ---
Pt. admitted to Tele overflow , under care of Dr. Juaquin Kessler Belongs List completed all belongings sent with patient, report given to Kelly PINA
--- NOTE | 2020-06-19 04:25 | NUR ---
Admitted to CCU2 an 85 y.o female patient from ER DX: Colitis, NSTEMI. Tele status. [facility] [place] [facility] Had liquid brown BM mixed with urine. Denies SOB, chest pains and dizziness during ambulation. Attached to bedside monitor. Afib rate 100's-110's. BPs 80's-90's systole. Patient just want to sleep. Admission routines, fall precautions, use of call light discussed with patient; verbalized understanding. L hearing aid removed by patient and RN put it in a cup with her name on it. Refused to have other belongings checked at this time; patient just wants to sleep. Addendum: 06/19/20 at 0533 by LIZZY DEGROOT RN Amended: Links added. Addendum: 06/19/20 at 0535 by LIZZY DEGROOT RN Amended: Links added.
--- NOTE | 2020-06-19 04:52 | NUR ---
Chepe Mcneil informed of patient's rhythm and BPs in the 's and 's. No order but to observe patient for now. Addendum: 06/19/20 at 0535 by LIZZY DEGROOT RN Amended: Links added.
[2020-06-19] MEDS ORDERED: METRONIDAZOLE 500 MG/NS 100ML 100 ML IV ONE (05:07)
[2020-06-19 05:13] LABS: CARBON DIOXIDE 28 mmol/L (21-32); CHLORIDE 98 mmol/L (98-107); CHOLESTEROL 127 mg/dL (<200); CREATININE 1.4 mg/dL (0.6-1.3); GLUCOSE 98 mg/dL (74-106); HDL CHOLESTEROL 41 mg/dL (40-60); MAGNESIUM 1.8 mg/dL (1.8-2.4); PHOSPHOROUS 3.1 mg/dL (2.5-4.9); POTASSIUM 3.4 mmol/L (3.5-5.1); TRIGLYCERIDES 88 MG/DL (30-150); UREA NITROGEN, BLOOD 37 mg/dL (7-18)
[2020-06-19 05:14] LABS: BASOPHILS % (AUTO) 0.4 % (0.0-2.0); EOSINOPHILS # (AUTO) 0.1 K/uL (0.0-0.7); EOSINOPHILS % (AUTO) 1.5 % (0.0-7.0); HEMATOCRIT 30.4 % (31.2-41.9); HEMOGLOBIN 10.4 g/dL (10.9-14.3); LYMPHOCYTES # (AUTO) 1.3 K/uL (20.0-40.0); LYMPHOCYTES % (AUTO) 32.3 % (20.5-51.5); MEAN CORPUSCULAR HEMOGLOBIN 28.9 uug (24.7-32.8); MEAN CORPUSCULAR HGB CONC 34 g/dL (32.3-35.6); MEAN CORPUSCULAR VOLUME 84.8 fL (75.5-95.3); MONOCYTES # (AUTO) 1.1 K/uL (2.0-10.0); MONOCYTES % (AUTO) 27.9 % (0.0-11.0); NEUTROPHILS # (AUTO) 1.5 K/uL (1.8-8.9); NEUTROPHILS % (AUTO) 37.9 % (38.5-71.5); PLATELET COUNT (AUTO) 166 K/uL (179-408); RED BLOOD CELL COUNT(AUTO) 3.59 MIL/uL (3.63-4.92); WHITE BLOOD COUNT (AUTO) 3.9 K/uL (3.8-11.8)
[2020-06-19] MEDS: METRONIDAZOLE 500 MG/NS 100ML 500 MG in PREMIXED 1 EACH IV SCH ×3 (05:21→21:47)
[2020-06-19] MEDS: PANTOPRAZOLE SODIUM 40 MG TABLET.DR PO SCH (06:36)
--- NOTE | 2020-06-19 07:08 | NUR ---
Continues to sleep. NAD noted. Remains in afib rate 90's to 100's. Addendum: 06/19/20 at 0711 by LIZZY DEGROOT RN Amended: Links added.
[2020-06-19] MEDS: LEVOTHYROXINE SODIUM 175 MCG TABLET PO SCH (08:32)
[2020-06-19] MEDS: MULTIVITAMINS,THERAPEUTIC TABLET PO SCH (08:34)
[2020-06-19] MEDS: ENOXAPARIN SODIUM 30 MG/0.3 ML DISP.SYRIN SQ SCH (08:35)
[2020-06-19] MEDS: THIAMINE HCL 100 MG TABLET PO SCH (08:36)
[2020-06-19] MEDS ORDERED: METOPROLOL TARTRATE 25 MG TABLET PO SCH (09:00)
[2020-06-19] MEDS ORDERED: POTASSIUM CHLORIDE 20 MEQ POWDER PACKET PO SCH (10:45)
--- NOTE | 2020-06-19 11:20 | NUR ---
DOCTOR FOFANA IN THE UNIT TO SEE PATIENT. POSSIBLE TRANSFER OF CARE WILL BE TO DR. WESLEY PER REQUEST OF THE PATIENT. IVF INCREASE TO 100ML/HR.
--- NOTE | 2020-06-19 12:04 | NUR ---
CHANGED POTASSIUM POWDER TO TABLET.
[2020-06-19] MEDS ORDERED: POTASSIUM CHLORIDE 20 MEQ TAB.PRT.SR PO SCH (12:15)
--- NOTE | 2020-06-19 14:35 | NUR ---
DOCTOR DEMETRIS IN THE UNIT TO CONSULT PATIENT. CONTINUE TO MONITOR FOR NOW REGARDING BP AND RHYTHM
--- NOTE | 2020-06-19 17:04 | NUR ---
DOCTOR RODRICK IN THE UNIT TO SEE PATIENT.
[2020-06-19] MEDS: IV NS 1000 ML 1,000 ML IV PRN (17:27)
[2020-06-19 18:59] LABS: LYMPHOCYTES % (MANUAL) 34 % (20-40); MONOCYTES % (MANUAL) 22 % (2-10)
[2020-06-19 19:02] LABS: BAND % (MANUAL) 6 % (0-10); NEUTROPHILS % (MANUAL) 38 % (42-75)
--- NOTE | 2020-06-19 20:00 | NUR ---
RECEIVED PT. AAOX4, ON O2 @ 2LNC W/ O2 SAT OF 96%. IVF NS @ 100CC/HR ON LAC NO SIGNS OF INFILTRATION. C-SCOPE AFIB CONTROLLED. NOT IN ANY DISTRESS.
--- NOTE | 2020-06-19 22:00 | NUR ---
UP IN COMMODE. VOIDED ADEQ AMT. SELF CARE W/ MINIMAL ASSIST.
--- NOTE | 2020-06-19 23:00 | NUR ---
SLEEPING AT THIS TIME.
[2020-06-20 00:01] VITALS: BP 92/50
[2020-06-20 04:00] VITALS: BP 80/47
[2020-06-20] MEDS: IV NS 1000 ML 1,000 ML IV PRN ×2 (05:24→11:37)
[2020-06-20] MEDS: METRONIDAZOLE 500 MG/NS 100ML 500 MG in PREMIXED 1 EACH IV SCH ×3 (05:24→21:19)
--- NOTE | 2020-06-20 05:50 | NUR ---
PT REFUSED AM CARE WANTS TO SLEEP MORE.BP IS LOW. SKIN IS WARM & DRY. REMAINS ALERT & ORIENTED.
--- NOTE | 2020-06-20 07:00 | NUR ---
PATIENT IS IN AND OUT OF SR AND AFIB. WILL SUSTAIN IN SR FOR 10 MINUTES AND CONVERT BACK TO AFIB.
[2020-06-20] MEDS: PANTOPRAZOLE SODIUM 40 MG TABLET.DR PO SCH (07:58)
[2020-06-20] MEDS: LEVOTHYROXINE SODIUM 175 MCG TABLET PO SCH (07:58)
[2020-06-20] MEDS: ASPIRIN 81 MG TAB.CHEW PO SCH (07:58)
[2020-06-20] MEDS: THIAMINE HCL 100 MG TABLET PO SCH (07:58)
[2020-06-20] MEDS: MULTIVITAMINS,THERAPEUTIC TABLET PO SCH (07:58)
[2020-06-20] MEDS: ENOXAPARIN SODIUM 30 MG/0.3 ML DISP.SYRIN SQ SCH (07:59)
[2020-06-20 08:00] VITALS: BP 95/41
--- NOTE | 2020-06-20 08:00 | NUR ---
MORNING MEDS GIVEN. PATIENT INCONTINENT OF URINE CLEANED PATIENT. PATIENT OBTAINED ALL PERSONAL BELONGINGS FOR TRANSPORT TO [facility]. PATIENT WILL BE GOING TO ROOM 312.
[2020-06-20] MEDS: PAROXETINE HCL 20 MG TABLET PO SCH (08:06)
--- NOTE | 2020-06-20 09:50 | NUR ---
REPORT GIVEN TO ALLY PINA.
[2020-06-20 10:02] LABS: BASOPHILS % (AUTO) 0.5 % (0.0-2.0); EOSINOPHILS % (AUTO) 0.8 % (0.0-7.0); HEMOGLOBIN 10.8 g/dL (10.9-14.3); MEAN CORPUSCULAR HEMOGLOBIN 28.5 uug (24.7-32.8); MEAN CORPUSCULAR HGB CONC 34 g/dL (32.3-35.6); MEAN CORPUSCULAR VOLUME 84.5 fL (75.5-95.3); MONOCYTES # (AUTO) 1.2 K/uL (2.0-10.0); MONOCYTES % (AUTO) 27.8 % (0.0-11.0); NEUTROPHILS # (AUTO) 2.1 K/uL (1.8-8.9); NEUTROPHILS % (AUTO) 47.9 % (38.5-71.5); PLATELET COUNT (AUTO) 186 K/uL (179-408); RED BLOOD CELL COUNT(AUTO) 3.78 MIL/uL (3.63-4.92); WHITE BLOOD COUNT (AUTO) 4.4 K/uL (3.8-11.8)
[2020-06-20 10:13] LABS: CREATININE 0.9 mg/dL (0.6-1.3); MAGNESIUM 1.5 mg/dL (1.8-2.4); PHOSPHOROUS 2.6 mg/dL (2.5-4.9); POTASSIUM 3.6 mmol/L (3.5-5.1)
[2020-06-20] MEDS ORDERED: POTASSIUM CHLORIDE 20 MEQ POWDER PACKET GT ONE (11:00)
[2020-06-20] MEDS ORDERED: AMIODARONE HCL IV 150 MG in IV DEXTROSE 5% 100 ML IV ONE (11:00)
--- NOTE | 2020-06-20 11:00 | NUR ---
[address] CARDONA FOR CARDIAC FOLLOW-UP, PATIENT HR 115-127/MIN AFIB. DR CARDONA SAID TO GIVE ONLY A BOLUS OF AMIODARONE AND NO DRIP BUT ADVISED TO CALL IF PATIENT HR GOES UNCONTROLLED
[2020-06-20] MEDS: MAGNESIUM SULFATE/D5W 100 ML IV SCH ×4 (11:36→15:07)
[2020-06-20] MEDS: ONDANSETRON 4 MG/2 ML VIAL IV PRN (11:49)
--- NOTE | 2020-06-20 11:49 | NUR ---
PATIENT C/O NAUSEA RELIEVED WITH IV ZOFRAN
--- NOTE | 2020-06-20 12:00 | NUR ---
PATIENT HR CONVERTED TO SR WITH OCCASIONAL PAC'S
[2020-06-20 12:03] VITALS: BP 100/64
--- NOTE | 2020-06-20 15:29 | NUR ---
PATIENT REMAINS ON SR 68/MIN, DENIES CP OR SOB. MAGNESIUM IVB COMPLETED
[2020-06-20 16:40] VITALS: BP 90/64
[2020-06-20 18:04] LABS: BAND % (MANUAL) 11 % (0-10); LYMPHOCYTES % (MANUAL) 30 % (20-40); MONOCYTES % (MANUAL) 25 % (2-10); NEUTROPHILS % (MANUAL) 34 % (42-75)
[2020-06-20 20:22] VITALS: BP 98/58
--- NOTE | 2020-06-20 21:00 | NUR ---
Patient awake and alert in bed. Does not seem to be in any acute distress. Denies any chest pain or SOB. Pt is on 2L/min NC. Bed is locked and in the lowest position. Will continue to monitor.
[2020-06-21] VITALS (7 sets, daily range): BP systolic 90–126; BP diastolic 45–60
[2020-06-21] MEDS: IV NS 1000 ML 1,000 ML IV PRN ×2 (03:09→14:00)
[2020-06-21] MEDS: PANTOPRAZOLE SODIUM 40 MG TABLET.DR PO SCH (06:21)
[2020-06-21] MEDS: METRONIDAZOLE 500 MG/NS 100ML 500 MG in PREMIXED 1 EACH IV SCH (06:21)
[2020-06-21] MEDS: LEVOTHYROXINE SODIUM 175 MCG TABLET PO SCH (06:24)
--- NOTE | 2020-06-21 06:33 | NUR ---
Patient woke up intermittently throughout the night. Pt showed no s/s of respiratory distress or discomfort. On 2L/min NC. Bed in lowest position and locked. Safety precautions maintained. Will endorse to oncoming nurse.
--- NOTE | 2020-06-21 07:00 | NUR ---
IN BED C/O MODERATE HEADACHE 6/10 HR 138 AFIB ON MONITOR. PER MT AFIB STARTED AT 0645. CLOSELY OBSERVE
[2020-06-21] MEDS: ACETAMINOPHEN 325 MG TABLET PO PRN ×2 (07:45→18:03)
--- NOTE | 2020-06-21 08:05 | NUR ---
DR WILLSON NOTIFIED OF PATIENT C/O CHEST PAIN 01/07 ON DEEP BREATHING, WENT UNCONTROLLED AFIB AT A RATE OF 128-[address] WILLSON GAVE ORDER TO START AMIODARONE DRIP WITH BOLUS PER PROTOCOL. ALSO MADE AWARE OF LOW BLOOD PRESSURE AND SAID JUST CONTINUE AMIODARONE AND OBSERVE, PATIENT STATUS CHANGED TO PETE
[2020-06-21] MEDS: THIAMINE HCL 100 MG TABLET PO SCH (08:12)
[2020-06-21] MEDS: ASPIRIN 81 MG TAB.CHEW PO SCH (08:12)
[2020-06-21] MEDS: PAROXETINE HCL 20 MG TABLET PO SCH (08:12)
[2020-06-21] MEDS: MULTIVITAMINS,THERAPEUTIC TABLET PO SCH (08:12)
[2020-06-21] MEDS: ENOXAPARIN SODIUM 30 MG/0.3 ML DISP.SYRIN SQ SCH (08:14)
[2020-06-21] MEDS ORDERED: AMIODARONE HCL IV 150 MG in IV DEXTROSE 5% 100 ML IV ONE (08:30)
[2020-06-21] MEDS: AMIODARONE HCL IV 450 MG in IV DEXTROSE 5% 250 ML IV PRN ×2 (09:02→17:20)
--- NOTE | 2020-06-21 10:13 | NUR ---
DR WESLEY AND ABI LOWRY MARKETING AND PUBLIC RELATIONS MANAGER UPDATED OF PATIENT STATUS, SEE NOTES
[2020-06-21 11:28] LABS: BASOPHILS % (AUTO) 0.3 % (0.0-2.0); EOSINOPHILS % (AUTO) 0.5 % (0.0-7.0); HEMATOCRIT 30.1 % (31.2-41.9); HEMOGLOBIN 10.3 g/dL (10.9-14.3); LYMPHOCYTES % (AUTO) 10.6 % (20.5-51.5); MEAN CORPUSCULAR HEMOGLOBIN 29.1 uug (24.7-32.8); MEAN CORPUSCULAR HGB CONC 34 g/dL (32.3-35.6); MEAN CORPUSCULAR VOLUME 85.4 fL (75.5-95.3); MONOCYTES % (AUTO) 14.5 % (0.0-11.0); NEUTROPHILS # (AUTO) 4.6 K/uL (1.8-8.9); NEUTROPHILS % (AUTO) 74.1 % (38.5-71.5); PLATELET COUNT (AUTO) 198 K/uL (179-408); RED BLOOD CELL COUNT(AUTO) 3.53 MIL/uL (3.63-4.92); WHITE BLOOD COUNT (AUTO) 6.2 K/uL (3.8-11.8)
[2020-06-21 11:29] LABS: LYMPHOCYTES # (AUTO) 0.7 K/uL (20.0-40.0); MONOCYTES # (AUTO) 0.9 K/uL (2.0-10.0)
[2020-06-21 11:39] LABS: BILIRUBIN,TOTAL 0.3 mg/dL (0.2-1.0); MAGNESIUM 1.8 mg/dL (1.8-2.4); PHOSPHOROUS 2.3 mg/dL (2.5-4.9); TOTAL PROTEIN, SERUM 5.2 g/dL (6.4-8.2)
[2020-06-21 12:07] LABS: POTASSIUM 4.1 mmol/L (3.5-5.1)
--- NOTE | 2020-06-21 13:57 | NUR ---
PATIENT CONVERTED TO SR, CONTINUE WITH AMIODARONE DRIP PER PROTOCOL
[2020-06-21] MEDS: METRONIDAZOLE 500 MG TABLET PO SCH ×2 (14:19→22:03)
--- NOTE | 2020-06-21 16:36 | NUR ---
REMAINS SR ON MONITOR NO SS OF DISTRESS OR CHEST PAIN
[2020-06-21] MEDS ORDERED: NEUTRA PHOS PACKET PO ONE (17:00)
--- NOTE | 2020-06-21 18:31 | NUR ---
IN AND OUT AFIB OBSERVED FROM MONITOR CONTINUE WITH AMIODARONE DRIP
[2020-06-21] MEDS ORDERED: MELA5TAB PO (18:54)
--- NOTE | 2020-06-21 20:47 | NUR ---
Dr Cortez here, seen and assessed the patient with new order to dc IV fluid.
[2020-06-21] MEDS ORDERED: FUROSEMIDE 20 MG/2 ML VIAL IV ONE (21:15)
[2020-06-22 00:12] VITALS: BP 94/75
--- NOTE | 2020-06-22 02:46 | NUR ---
IV on Left hand leaking, removed and re-inserted a new one on right hand G22 x 1 attempt. Pt tolerated procedure well. IV ATB resume.
[2020-06-22 04:08] VITALS: BP 99/46
[2020-06-22] MEDS: METRONIDAZOLE 500 MG TABLET PO SCH ×3 (06:22→22:01)
[2020-06-22] MEDS: LEVOTHYROXINE SODIUM 175 MCG TABLET PO SCH (06:23)
[2020-06-22] MEDS: PANTOPRAZOLE SODIUM 40 MG TABLET.DR PO SCH (06:23)
--- NOTE | 2020-06-22 07:00 | NUR ---
Received patient in bed, Awake. On Oxygen at 2L via nasal canula, sat 96%. No SOB. No complain of Pain or discomfort. On Amiodarone drip at 16.6ml/hr with HR 109-110. kept clean and comfortable. Will continue to monitor.
--- NOTE | 2020-06-22 07:45 | NUR ---
Seen and examined by Dr. Cain with Order to D/C Amiodarone Alee.
[2020-06-22 07:52] LABS: BASOPHILS % (AUTO) 0.4 % (0.0-2.0); EOSINOPHILS % (AUTO) 0.7 % (0.0-7.0); HEMATOCRIT 29.2 % (31.2-41.9); LYMPHOCYTES # (AUTO) 0.9 K/uL (20.0-40.0); MEAN CORPUSCULAR HEMOGLOBIN 28.8 uug (24.7-32.8); MEAN CORPUSCULAR HGB CONC 34 g/dL (32.3-35.6); MEAN CORPUSCULAR VOLUME 84.3 fL (75.5-95.3); MONOCYTES # (AUTO) 0.9 K/uL (2.0-10.0); MONOCYTES % (AUTO) 13.4 % (0.0-11.0); NEUTROPHILS % (AUTO) 72.5 % (38.5-71.5); PLATELET COUNT (AUTO) 208 K/uL (179-408); RED BLOOD CELL COUNT(AUTO) 3.47 MIL/uL (3.63-4.92); WHITE BLOOD COUNT (AUTO) 6.9 K/uL (3.8-11.8)
[2020-06-22 08:04] LABS: BILIRUBIN,TOTAL 0.4 mg/dL (0.2-1.0); MAGNESIUM 1.8 mg/dL (1.8-2.4); PHOSPHOROUS 2.9 mg/dL (2.5-4.9); TOTAL PROTEIN, SERUM 5.3 g/dL (6.4-8.2)
[2020-06-22] MEDS ORDERED: FUROSEMIDE 40 MG/4 ML VIAL IV ONE (08:50)
[2020-06-22] MEDS: PAROXETINE HCL 20 MG TABLET PO SCH (09:14)
[2020-06-22] MEDS: AMIODARONE HCL 200 MG TABLET PO SCH ×2 (09:15→20:07)
[2020-06-22] MEDS: ASPIRIN 81 MG TAB.CHEW PO SCH (09:15)
[2020-06-22] MEDS: MULTIVITAMINS,THERAPEUTIC TABLET PO SCH (09:15)
[2020-06-22] MEDS: THIAMINE HCL 100 MG TABLET PO SCH (09:15)
[2020-06-22] MEDS: ENOXAPARIN SODIUM 30 MG/0.3 ML DISP.SYRIN SQ SCH (09:28)
[2020-06-22 12:00] VITALS: BP 108/61
[2020-06-22 15:44] VITALS: BP 106/68
--- NOTE | 2020-06-22 18:16 | NUR ---
Patient in bed, awake, alert and verbally responsive. On Oxygen at 2L via nasal canula, sat 96%. No complain of Pain at this time. Patient Afib on tele with HR of 102-106. Ambulates by PT with assist. kept clean and comfortable. Kept the call light within easy reach. Will endorse to Oncoming Nurse.
--- NOTE | 2020-06-22 19:00 | NUR ---
Received patient in bed, Awake. On Oxygen at 2L via nasal canula, sat 97%. No SOB. No complain of Pain or discomfort. Will keep patient dry, free of pain, and comfortable. Will continue to monitor.
[2020-06-22] MEDS: ACETAMINOPHEN 325 MG TABLET PO PRN (20:03)
[2020-06-22] MEDS: levoFLOXacin 250 MG TABLET PO SCH (20:03)
--- NOTE | 2020-06-22 21:45 | NUR ---
Pt reports insomnia. Says that she usually takes Melatonin 10mg at home. Contact Suzanna Duffy NP in regards to getting order prescribed and was given "OK" by her. Administered medication to patient. Will continue to monitor and assess.
[2020-06-22] MEDS: MELATONIN 3 MG TABLET PO PRN (21:48)
[2020-06-23 00:29] VITALS: BP 103/60
--- NOTE | 2020-06-23 00:35 | NUR ---
Assessed patient, resting in bed. VSS, no distress, afebrile, no reports of pain, no distress. Call light within reach, bed at lowest position, assessed IV site/checked IV pump. Will continue to monitor and assess.
--- NOTE | 2020-06-23 02:09 | NUR ---
No distress, no pain, VSS, afebrile, call light within reach, bed at lowest position. Will continue to monitor and assess.
--- NOTE | 2020-06-23 03:37 | NUR ---
Received call from patient about feeling SOB/difficulty breathing. Increased O2 to 5L via Nasal Canula and patient is now saturating at 97%. Told patient to report any new issues or recurring SOB. Will continue to monitor.
[2020-06-23 04:30] VITALS: BP 122/70
[2020-06-23] MEDS: ONDANSETRON 4 MG/2 ML VIAL IV PRN (04:33)
--- NOTE | 2020-06-23 04:33 | NUR ---
Pt was reporting pain at the IV site and nausea. PRN Zofran was given for the nausea and patients right hand IV was removed due to pain and infiltration. Will continue to assess and monitor.
--- NOTE | 2020-06-23 05:46 | NUR ---
Pt sleeping soundly in bed. NO reports of pain, no reports of nausea, no distress, no SOB. Patient getting 5L of O2 via nasal canula. Will endorse to AM nurse.
[2020-06-23] MEDS: METRONIDAZOLE 500 MG TABLET PO SCH ×3 (05:59→21:17)
[2020-06-23] MEDS: LEVOTHYROXINE SODIUM 175 MCG TABLET PO SCH (06:00)
[2020-06-23] MEDS: PANTOPRAZOLE SODIUM 40 MG TABLET.DR PO SCH (06:00)
[2020-06-23 07:19] LABS: CREATININE 1.3 mg/dL (0.6-1.3); MAGNESIUM 1.5 mg/dL (1.8-2.4); PHOSPHOROUS 2.8 mg/dL (2.5-4.9); POTASSIUM 3.6 mmol/L (3.5-5.1)
[2020-06-23 07:21] LABS: BASOPHILS % (AUTO) 0.3 % (0.0-2.0); EOSINOPHILS # (AUTO) 0.1 K/uL (0.0-0.7); EOSINOPHILS % (AUTO) 0.5 % (0.0-7.0); HEMATOCRIT 30.9 % (31.2-41.9); HEMOGLOBIN 10.5 g/dL (10.9-14.3); LYMPHOCYTES # (AUTO) 0.7 K/uL (20.0-40.0); LYMPHOCYTES % (AUTO) 6.4 % (20.5-51.5); MEAN CORPUSCULAR HEMOGLOBIN 28.4 uug (24.7-32.8); MEAN CORPUSCULAR HGB CONC 34 g/dL (32.3-35.6); MEAN CORPUSCULAR VOLUME 83.8 fL (75.5-95.3); MONOCYTES # (AUTO) 0.8 K/uL (2.0-10.0); MONOCYTES % (AUTO) 7.8 % (0.0-11.0); NEUTROPHILS # (AUTO) 9.2 K/uL (1.8-8.9); PLATELET COUNT (AUTO) 228 K/uL (179-408); RED BLOOD CELL COUNT(AUTO) 3.69 MIL/uL (3.63-4.92); WHITE BLOOD COUNT (AUTO) 10.8 K/uL (3.8-11.8)
--- NOTE | 2020-06-23 08:00 | NUR ---
Received patient in bed, asleep. On Oxygen at 1.5L via Nasal canula, sat 96%. No signs of Pain or discomfort. On 1:1 sitter for safety. kept clean and Comfortable. Will continue to monitor. . Addendum: 06/23/20 at 1459 by ELIAZAR CHUN RN Wrong patient
[2020-06-23] MEDS: MULTIVITAMINS,THERAPEUTIC TABLET PO SCH (09:11)
[2020-06-23] MEDS: THIAMINE HCL 100 MG TABLET PO SCH (09:11)
[2020-06-23] MEDS: ASPIRIN 81 MG TAB.CHEW PO SCH (09:11)
[2020-06-23] MEDS: AMIODARONE HCL 200 MG TABLET PO SCH ×2 (09:11→20:51)
[2020-06-23] MEDS: PAROXETINE HCL 20 MG TABLET PO SCH (09:11)
[2020-06-23] MEDS: ENOXAPARIN SODIUM 30 MG/0.3 ML DISP.SYRIN SQ SCH (09:12)
[2020-06-23] MEDS: MAGNESIUM SULFATE/D5W 100 ML IV SCH ×3 (09:17→11:43)
[2020-06-23 11:05] VITALS: BP 117/64
--- NOTE | 2020-06-23 13:30 | NUR ---
Relayed BP 93/[address] Garner regarding Metoprolol 25mg Order, with New parameter Order to Hold if SBP below 90 and HR below 60.
[2020-06-23] MEDS: METOPROLOL TARTRATE 25 MG TABLET PO SCH ×2 (13:38→17:18)
[2020-06-23 15:54] VITALS: BP 107/57
--- NOTE | 2020-06-23 19:50 | NUR ---
PATIENT ALERT ORIENTED, NO SOB NO CHEST, TELE MONITOR A FIB CONTROL 89. PATIENT HAS NO COMPLAIN OF PAIN AT THIS TIME, ASSISTED WITH TOILETING, CONT TO MONITOR.
[2020-06-23] MEDS: levoFLOXacin 250 MG TABLET PO SCH (20:51)
[2020-06-23] MEDS: ACETAMINOPHEN 325 MG TABLET PO PRN (21:10)
[2020-06-23] MEDS: MELATONIN 3 MG TABLET PO PRN (21:11)
[2020-06-24] MEDS: LEVOTHYROXINE SODIUM 175 MCG TABLET PO SCH (06:10)
[2020-06-24] MEDS: METRONIDAZOLE 500 MG TABLET PO SCH ×3 (06:10→21:06)
[2020-06-24] MEDS: PANTOPRAZOLE SODIUM 40 MG TABLET.DR PO SCH (06:11)
--- NOTE | 2020-06-24 06:27 | NUR ---
PATIENT ALERT ORIENTED, NO SOB NO CHEST PAIN, TELE MONITOR SINUS RHYTHM SINCE 0200, ASSISTED WITH TOILETING, NO COMPLAIN OF PAIN AT THIS TIME, CONT TO MONITOR.
[2020-06-24 06:55] LABS: CARBON DIOXIDE 26 mmol/L (21-32); CHLORIDE 102 mmol/L (98-107); CREATININE 1.4 mg/dL (0.6-1.3); GLUCOSE 101 mg/dL (74-106); PHOSPHOROUS 3.3 mg/dL (2.5-4.9); UREA NITROGEN, BLOOD 15 mg/dL (7-18)
[2020-06-24 07:22] LABS: BASOPHILS % (AUTO) 0.2 % (0.0-2.0); EOSINOPHILS # (AUTO) 0.1 K/uL (0.0-0.7); EOSINOPHILS % (AUTO) 1.1 % (0.0-7.0); HEMATOCRIT 29.1 % (31.2-41.9); LYMPHOCYTES # (AUTO) 0.9 K/uL (20.0-40.0); LYMPHOCYTES % (AUTO) 8.6 % (20.5-51.5); MEAN CORPUSCULAR HEMOGLOBIN 28.8 uug (24.7-32.8); MEAN CORPUSCULAR HGB CONC 34 g/dL (32.3-35.6); MONOCYTES # (AUTO) 0.7 K/uL (2.0-10.0); MONOCYTES % (AUTO) 6.8 % (0.0-11.0); NEUTROPHILS # (AUTO) 8.6 K/uL (1.8-8.9); NEUTROPHILS % (AUTO) 83.3 % (38.5-71.5); PLATELET COUNT (AUTO) 236 K/uL (179-408); RED BLOOD CELL COUNT(AUTO) 3.46 MIL/uL (3.63-4.92); WHITE BLOOD COUNT (AUTO) 10.3 K/uL (3.8-11.8)
[2020-06-24] MEDS: THIAMINE HCL 100 MG TABLET PO SCH (08:20)
[2020-06-24] MEDS: ASPIRIN 81 MG TAB.CHEW PO SCH (08:20)
[2020-06-24] MEDS: ACETAMINOPHEN 325 MG TABLET PO PRN ×2 (08:20→22:28)
[2020-06-24] MEDS: PAROXETINE HCL 20 MG TABLET PO SCH (08:20)
[2020-06-24] MEDS: MULTIVITAMINS,THERAPEUTIC TABLET PO SCH (08:20)
[2020-06-24] MEDS: AMIODARONE HCL 200 MG TABLET PO SCH ×2 (08:21→20:35)
[2020-06-24] MEDS: METOPROLOL TARTRATE 25 MG TABLET PO SCH ×3 (08:25→17:07)
[2020-06-24] MEDS: ENOXAPARIN SODIUM 30 MG/0.3 ML DISP.SYRIN SQ SCH (08:29)
--- NOTE | 2020-06-24 08:30 | NUR ---
RECEIVED PATIENT AWAKE, ALERT AND ORIENTED X 4. SR ON MONITOR. ON 2L O2 NC, SATURATION WNL. PATIENT ABLE TO TOLERATE AMBULATING TO RESTROOM WITH FWW SBA. INCONTINENT OF BLADDER. IV ON LEFT FA 22G, FLUSHED AND PATENT. NO S/S OF DISTRESS NOTED AT THIS TIME. WILL CONTINUE TO MONITOR.
[2020-06-24] MEDS ORDERED: FUROSEMIDE 40 MG/4 ML VIAL IV ONE (09:00)
--- NOTE | 2020-06-24 09:00 | NUR ---
SEEN BY DR VITAL, BULL WHEEL WORKER. SEE NOTES FOR MD ORDER.
--- NOTE | 2020-06-24 09:30 | NUR ---
INSTRUCTED PATIENT ON HOW TO USE THE INCENTIVE SPIROMETER AND ITS PURPOSE. PATIENT VERBALIZED UNDERSTANDING AND DEMONSTRATED PROPER USE OF IS. ENCOURAGE USE OF IS 10x Q1H. WILL CONTINUE TO FOLLOW UP WITH PATIENT ON IS USE.
[2020-06-24 12:00] VITALS: BP 130/64
[2020-06-24 16:00] VITALS: BP 129/69
--- NOTE | 2020-06-24 17:39 | NUR ---
CONVERTED TO AFIB CONTROLLED AT 1710, ASYMPTOMATIC. CONVERTED BACK TO SINUS RHYTHM AT 1730.
--- NOTE | 2020-06-24 19:20 | NUR ---
Received patient in bed alert oriented and able to make needs known,on 2LPM via NC saturating at 93%.No s/s of distress noted at this time.IV on left FA 22 g. , patent and intact.No s/s of infiltration.Reinforced teaching on incentive spirometer.Verbalized understanding.All due meds given.No a/r noted.Call light and all belongings with in reach.Continue safety measures.Will continue to monitor.
[2020-06-24] MEDS: levoFLOXacin 250 MG TABLET PO SCH (20:35)
[2020-06-24 20:47] VITALS: BP 127/61
[2020-06-24] MEDS: MELATONIN 3 MG TABLET PO PRN (21:34)
[2020-06-25] VITALS: BP 128/65
[2020-06-25 04:00] VITALS: BP 125/69
--- NOTE | 2020-06-25 06:43 | NUR ---
Patient slept intermittently.On tele monitor SR.Ambulates to the bathroom with assist with Bm x1.No s/s of distress noted at this time.Call light with in reach and safety measures in place.
[2020-06-25] MEDS: PANTOPRAZOLE SODIUM 40 MG TABLET.DR PO SCH (06:49)
[2020-06-25] MEDS: LEVOTHYROXINE SODIUM 175 MCG TABLET PO SCH (06:49)
[2020-06-25] MEDS: METRONIDAZOLE 500 MG TABLET PO SCH ×3 (06:49→21:39)
[2020-06-25 07:32] LABS: BASOPHILS % (AUTO) 0.4 % (0.0-2.0); EOSINOPHILS # (AUTO) 0.1 K/uL (0.0-0.7); EOSINOPHILS % (AUTO) 1.1 % (0.0-7.0); HEMATOCRIT 29.7 % (31.2-41.9); HEMOGLOBIN 10.3 g/dL (10.9-14.3); LYMPHOCYTES # (AUTO) 0.9 K/uL (20.0-40.0); LYMPHOCYTES % (AUTO) 8.8 % (20.5-51.5); MEAN CORPUSCULAR HGB CONC 35 g/dL (32.3-35.6); MEAN CORPUSCULAR VOLUME 83.9 fL (75.5-95.3); MONOCYTES # (AUTO) 0.7 K/uL (2.0-10.0); MONOCYTES % (AUTO) 7.2 % (0.0-11.0); NEUTROPHILS # (AUTO) 8.5 K/uL (1.8-8.9); NEUTROPHILS % (AUTO) 82.5 % (38.5-71.5); PLATELET COUNT (AUTO) 258 K/uL (179-408); RED BLOOD CELL COUNT(AUTO) 3.54 MIL/uL (3.63-4.92); WHITE BLOOD COUNT (AUTO) 10.4 K/uL (3.8-11.8)
[2020-06-25 07:45] LABS: CREATININE 1.3 mg/dL (0.6-1.3); MAGNESIUM 1.6 mg/dL (1.8-2.4); PHOSPHOROUS 3.4 mg/dL (2.5-4.9); POTASSIUM 3.3 mmol/L (3.5-5.1)
[2020-06-25] MEDS ORDERED: POTASSIUM CHLORIDE 10 MEQ TAB.PRT.SR PO ONE (08:00)
--- NOTE | 2020-06-25 08:00 | NUR ---
RECEIVED PATIENT AWAKE, ALERT AND ORIENTED X 4. ON 2L O2 NC, SATURATION WNL. SR ON MONITOR AT THIS TIME. COMPLAINS OF PAIN - GIVEN TYLENOL ORDERED. IV ON LEFT FA 22G PATENT AND INTACT. ABLE TO AMBULATE TO BATHROOM WITH FWW SBA. INCONTINENT OF BLADDER. SAFETY PRECAUTIONS IN PLACE. WILL CONTINUE TO MONITOR.
--- NOTE | 2020-06-25 08:23 | NUR ---
ENCOURAGE PATIENT TO CONTINUE USE OF INCENTIVE SPIROMETER. PATIENT VERBALIZED UNDERSTANDING AND DEMONSTRATED BACK PROPER USE OF IS.
[2020-06-25] MEDS: PAROXETINE HCL 20 MG TABLET PO SCH (08:26)
[2020-06-25] MEDS: ASPIRIN 81 MG TAB.CHEW PO SCH (08:27)
[2020-06-25] MEDS: AMIODARONE HCL 200 MG TABLET PO SCH ×2 (08:27→20:42)
[2020-06-25] MEDS: MULTIVITAMINS,THERAPEUTIC TABLET PO SCH (08:27)
[2020-06-25] MEDS: THIAMINE HCL 100 MG TABLET PO SCH (08:27)
--- NOTE | 2020-06-25 08:30 | NUR ---
SEEN BY DR. WESLEY. SEE MD NOTES.
[2020-06-25] MEDS: METOPROLOL TARTRATE 25 MG TABLET PO SCH ×3 (08:31→16:49)
[2020-06-25] MEDS: ENOXAPARIN SODIUM 30 MG/0.3 ML DISP.SYRIN SQ SCH (08:32)
[2020-06-25] MEDS: MAGNESIUM SULFATE/D5W 100 ML IV SCH ×2 (10:15→11:17)
[2020-06-25] MEDS ORDERED: FUROSEMIDE 40 MG/4 ML VIAL IV ONE (10:30)
[2020-06-25 11:32] VITALS: BP 106/63
--- NOTE | 2020-06-25 13:00 | NUR ---
METOPROLOL NOT GIVEN PER PARAMETERS. BP 85/57, HR 86. PATIENT ASYMPTOMATIC. DENIES DIZZINESS OR SOB. NO S/S OF DISTRESS NOTED. WILL NOTIFY
--- NOTE | 2020-06-25 13:20 | NUR ---
BP RECHECKED: 119/72. DENIES DIZZINESS OR SOB AT THIS TIME. NO S/S OF DISTRESS NOTED.
[2020-06-25 14:39] VITALS: BP 119/72
[2020-06-25 16:00] VITALS: BP 101/56
--- NOTE | 2020-06-25 20:01 | NUR ---
Received patient in bed .Alert and oriented x4.Denies Sob.No c/o pain .All due meds given.Continue on ATb therapy .no a/r noted.continue safety measure. Call light with in reach.will continue to monitor.
[2020-06-25 20:05] VITALS: BP 115/61
[2020-06-25] MEDS: levoFLOXacin 250 MG TABLET PO SCH (20:42)
[2020-06-25] MEDS: MELATONIN 3 MG TABLET PO PRN (21:48)
[2020-06-26 00:12] VITALS: BP 110/68
[2020-06-26 04:00] VITALS: BP 110/65
[2020-06-26] MEDS: PANTOPRAZOLE SODIUM 40 MG TABLET.DR PO SCH (06:43)
[2020-06-26] MEDS: METRONIDAZOLE 500 MG TABLET PO SCH ×2 (06:43→13:55)
[2020-06-26] MEDS: LEVOTHYROXINE SODIUM 175 MCG TABLET PO SCH (06:43)
[2020-06-26 07:06] LABS: BASOPHILS % (AUTO) 0.4 % (0.0-2.0); EOSINOPHILS # (AUTO) 0.2 K/uL (0.0-0.7); EOSINOPHILS % (AUTO) 1.5 % (0.0-7.0); HEMOGLOBIN 10.1 g/dL (10.9-14.3); LYMPHOCYTES # (AUTO) 1.1 K/uL (20.0-40.0); LYMPHOCYTES % (AUTO) 11.1 % (20.5-51.5); MEAN CORPUSCULAR HGB CONC 35 g/dL (32.3-35.6); MEAN CORPUSCULAR VOLUME 83.3 fL (75.5-95.3); MONOCYTES # (AUTO) 0.8 K/uL (2.0-10.0); NEUTROPHILS # (AUTO) 7.9 K/uL (1.8-8.9); PLATELET COUNT (AUTO) 284 K/uL (179-408); RED BLOOD CELL COUNT(AUTO) 3.48 MIL/uL (3.63-4.92)
[2020-06-26 07:23] LABS: CARBON DIOXIDE 29 mmol/L (21-32); CHLORIDE 102 mmol/L (98-107); CREATININE 1.4 mg/dL (0.6-1.3); GLUCOSE 103 mg/dL (74-106); MAGNESIUM 1.9 mg/dL (1.8-2.4); PHOSPHOROUS 3.1 mg/dL (2.5-4.9); POTASSIUM 3.4 mmol/L (3.5-5.1); UREA NITROGEN, BLOOD 18 mg/dL (7-18)
--- NOTE | 2020-06-26 07:30 | NUR ---
Received patient resting in bed. Awake, alert and oriented times 4. Patient shows no sign of distress. Patient teaching done about the use of the incentive spirometer. Patient uses a front wheel walker to ambulate. Skin in tact. Safety precautions are in place, with call light and belongings within reach. Will continue to monitor.
[2020-06-26] MEDS ORDERED: POTASSIUM CHLORIDE 20 MEQ POWDER PACKET GT ONE (08:30)
[2020-06-26] MEDS ORDERED: POTASSIUM CHLORIDE 20 MEQ TAB.PRT.SR PO ONE (09:00)
[2020-06-26] MEDS: PAROXETINE HCL 20 MG TABLET PO SCH (09:16)
[2020-06-26] MEDS: THIAMINE HCL 100 MG TABLET PO SCH (09:17)
[2020-06-26] MEDS: MULTIVITAMINS,THERAPEUTIC TABLET PO SCH (09:17)
[2020-06-26] MEDS: ASPIRIN 81 MG TAB.CHEW PO SCH (09:17)
[2020-06-26] MEDS: AMIODARONE HCL 200 MG TABLET PO SCH (09:23)
[2020-06-26] MEDS: METOPROLOL TARTRATE 25 MG TABLET PO SCH ×3 (09:24→17:27)
[2020-06-26] MEDS: ENOXAPARIN SODIUM 30 MG/0.3 ML DISP.SYRIN SQ SCH (09:25)
[2020-06-26] MEDS ORDERED: FUROSEMIDE 40 MG/4 ML VIAL IV ONE (09:30)
[2020-06-26] MEDS ORDERED: ZOLPIDEM 5 MG TABLET PO PRN (10:00)
[2020-06-26 11:33] VITALS: BP 112/74
[2020-06-26] MEDS ORDERED: AMIO200T6 PO (12:40)
[2020-06-26] MEDS ORDERED: ASPI81TA31 PO (12:40)
[2020-06-26] MEDS ORDERED: ACET325T53 PO (12:40)
[2020-06-26] MEDS ORDERED: MULT-24 PO (12:40)
[2020-06-26] MEDS ORDERED: METO25TA6 PO (12:40)
[2020-06-26] MEDS ORDERED: LEVO750T46 PO (12:40)
[2020-06-26] MEDS ORDERED: PANT40TA2 PO (12:40)
[2020-06-26] MEDS ORDERED: CLON0.5T4 PO (12:40)
[2020-06-26] MEDS ORDERED: ZOLP5TAB8 PO (12:40)
[2020-06-26] MEDS ORDERED: MELA3TAB41 PO (12:40)
[2020-06-26] MEDS ORDERED: LEVO175T7 PO (12:40)
[2020-06-26] MEDS ORDERED: ENOX30DI SQ (12:40)
[2020-06-26] MEDS ORDERED: THIA100T13 PO (12:40)
[2020-06-26] MEDS ORDERED: PARO20TA7 PO (12:40)
[2020-06-26] MEDS ORDERED: HYDR-3972 PO (12:40)
[2020-06-26 16:00] VITALS: BP 123/71
[2020-06-26 17:27] VITALS: BP 125/73
--- NOTE | 2020-06-26 17:50 | NUR ---
Patient Discharge done to Acute Rehab Unit. The patient shows no sign of distress at this time. Patient given discharge instructions and medication list. Belongings list signs and a copy placed in patients chart. Patient to be admitted to ARU.
== END 2020-06-26 17:38 | DRG 371 ==
LOC: ER 20:50 → CCU 06-19 03:58 → TELE3 06-20 11:04 → TELE-TD3 06-20 12:00 → TELE3 06-20 16:54 → TELE-TD3 06-21 08:03 → TELE3 06-22 08:51
PROVIDERS: ADMIT Internal Medicine; ATTEND Nurse Practitioner Acute Care
DX: A04.9 Bacterial intestinal infection, unspecified (principal); I21.A1 Myocardial infarction type 2; N17.0 Acute kidney failure with tubular necrosis; I50.31 Acute diastolic (congestive) heart failure; J18.9 Pneumonia, unspecified organism; E22.2 Syndrome of inappropriate secretion of antidiuretic hormone; E89.0 Postprocedural hypothyroidism; E86.0 Dehydration; E86.1 Hypovolemia; E78.5 Hyperlipidemia, unspecified; F41.9 Anxiety disorder, unspecified; G47.00 Insomnia, unspecified; I11.0 Hypertensive heart disease with heart failure; I48.0 Paroxysmal atrial fibrillation; Z85.850 Personal history of malignant neoplasm of thyroid; I73.9 Peripheral vascular disease, unspecified; M19.90 Unspecified osteoarthritis, unspecified site
CPT/HCPCS: 36415; 70030-TC; 71045; 83690; 83735; 84100; 85025; 86625; 87046; 87086; 93005; 93307; A4663; G0378; J0282; J1650; J1940; J1956; J2405; J3475; J3490; J7030; J7060

== ENCOUNTER 2020-06-26 11:24 | Inpatient (IN) | payer MEDICARE ==
[~2020-06-26] VITALS: Ht 170.2 cm; Wt 68.9 kg
[~2020-06-26 11:24] MED LIST changes: +MELA5TAB PO
[2020-06-26] MEDS ORDERED: LEVO750T46 PO (12:40)
[2020-06-26] MEDS ORDERED: ACET325T53 PO (12:40)
[2020-06-26] MEDS ORDERED: ENOX30DI SQ (12:40)
[2020-06-26] MEDS ORDERED: AMIO200T6 PO (12:40)
[2020-06-26] MEDS ORDERED: PARO20TA7 PO (12:40)
[2020-06-26] MEDS ORDERED: MELA3TAB41 PO (12:40)
[2020-06-26] MEDS ORDERED: ZOLP5TAB8 PO (12:40)
[2020-06-26] MEDS ORDERED: METO25TA6 PO (12:40)
[2020-06-26] MEDS ORDERED: THIA100T13 PO (12:40)
[2020-06-26] MEDS ORDERED: ASPI81TA31 PO (12:40)
[2020-06-26] MEDS ORDERED: LEVO175T7 PO (12:40)
[2020-06-26] MEDS ORDERED: MULT-24 PO (12:40)
[2020-06-26] MEDS ORDERED: PANT40TA2 PO (12:40)
[2020-06-26] MEDS ORDERED: CLON0.5T4 PO (12:40)
[2020-06-26] MEDS ORDERED: HYDR-3972 PO (12:40)
--- NOTE | 2020-06-26 18:10 | NUR ---
Received patient in bed awake, alert and oriented times 4. Patient shows no sign of distress at this time. Patient was discharged from MS unit and admitted to ARU. Patient has left forearm 20 gauge heplock. Belongings list signed and placed in charge. Safety precautions in place with call light and belongings within reach. Will endorse to the oncoming nurse.
[2020-06-26] MEDS ORDERED: Z GUARD REMEDY PASTE 57 GM TUBE TOP PRN (19:45)
[2020-06-26] MEDS ORDERED: MELATONIN 3 MG TABLET PO PRN (20:00)
[2020-06-26] MEDS ORDERED: CLONAZEPAM 0.5 MG TABLET PO PRN (20:00)
[2020-06-26] MEDS ORDERED: HYDROCODONE/APAP 5-325MG TABLET PO PRN (20:00)
[2020-06-26 20:14] VITALS: BP 135/87
[2020-06-26] MEDS: ZOLPIDEM 5 MG TABLET PO PRN (21:43)
[2020-06-26] MEDS: AMIODARONE HCL 200 MG TABLET PO SCH (21:44)
[2020-06-26] MEDS: ENOXAPARIN SODIUM 30 MG/0.3 ML DISP.SYRIN SQ SCH (23:27)
[2020-06-27 04:14] VITALS: BP 130/70
[2020-06-27] MEDS: LEVOTHYROXINE SODIUM 175 MCG TABLET PO SCH (06:34)
[2020-06-27] MEDS: PANTOPRAZOLE SODIUM 40 MG TABLET.DR PO SCH (06:34)
--- NOTE | 2020-06-27 06:46 | NUR ---
Received patient awake, alert and orient x 4. Able to make needs known. Denies any pain/discomforts at this time. On continuos O2 at 2L/min via NC saturating 96% at this time. Routine admission care done. Plan of care initiated.
[2020-06-27 08:00] VITALS: BP 143/83
[2020-06-27] MEDS: AMIODARONE HCL 200 MG TABLET PO SCH ×2 (08:51→20:45)
[2020-06-27] MEDS: MULTIVITAMINS,THERAPEUTIC TABLET PO SCH (08:52)
[2020-06-27] MEDS: PAROXETINE HCL 20 MG TABLET PO SCH (08:52)
[2020-06-27] MEDS: THIAMINE HCL 100 MG TABLET PO SCH (08:52)
[2020-06-27] MEDS: ASPIRIN 81 MG TAB.CHEW PO SCH (08:53)
[2020-06-27] MEDS ORDERED: levoFLOXacin 750 MG TABLET PO SCH (09:00)
[2020-06-27] MEDS ORDERED: METOPROLOL TARTRATE 25 MG TABLET PO SCH (09:00)
[2020-06-27] MEDS ORDERED: FUROSEMIDE 20 MG/2 ML VIAL IV ONE (12:15)
--- NOTE | 2020-06-27 14:14 | NUR ---
Radio Interference Supervisor Note: Patient shares goals of improving with her physical therapy and not needing assistance when she is discharged back to her home. SW provided patient with the following caregiving resources: [facility]; ([phone]), [facility]; ([phone]), [facility]; ([phone]). hair worker will continue to remain available to patient and provide ongoing supportive counseling and assess for any psychosocial needs. hair worker will encourage patient to comply with ARU goals of care.
--- NOTE | 2020-06-27 14:52 | NUR ---
COMMUNICATED WITH AIR POLLUTION SPECIALIST MERLIE REGARDING PATIENT REQUESTING WALKING PRIVILEGES OUTSIDE OF HER THERAPY TIME. PT IS SUPERVISED FOR ALL ACTIVITIES AT THIS TIME AND ONLY REQUIRES ASSIST FOR O2 TANK SHE NEEDS O2 WITH ACTIVITIES. Addendum: 06/27/20 at 1459 by CHACHO SHEEHAN SEWING DEMONSTRATOR WHEELCHAIR FOLLOWING FOR SEATED REST BREAKS NEEDED.
[2020-06-27 16:25] VITALS: BP 131/72
[2020-06-27] MEDS: ENSURE ENLIVE (VAN) 240 ML LIQUID PO SCH (17:07)
[2020-06-27] MEDS: METOPROLOL TARTRATE 25 MG TABLET PO SCH (17:07)
--- NOTE | 2020-06-27 20:00 | NUR ---
Received patient awake, alert, and oriented. No s/s of acute distress at this time. Pt is on 2L NC and denies SOB. Held caden Amidarone due to low pulse of 57. Bed locked and in low position. Safety measures in place and call light within reach. Will continue to monitor.
[2020-06-27 20:10] VITALS: BP 143/78
[2020-06-27] MEDS: ENOXAPARIN SODIUM 30 MG/0.3 ML DISP.SYRIN SQ SCH (20:47)
[2020-06-27] MEDS: ACETAMINOPHEN 325 MG TABLET PO PRN (21:02)
[2020-06-27] MEDS: ZOLPIDEM 5 MG TABLET PO PRN (21:02)
[2020-06-28 05:19] VITALS: BP 119/62
[2020-06-28] MEDS: PANTOPRAZOLE SODIUM 40 MG TABLET.DR PO SCH (06:00)
[2020-06-28] MEDS: LEVOTHYROXINE SODIUM 175 MCG TABLET PO SCH (06:00)
[2020-06-28 06:40] LABS: CREATININE 1.3 mg/dL (0.6-1.3); MAGNESIUM 1.5 mg/dL (1.8-2.4); POTASSIUM 3.5 mmol/L (3.5-5.1)
[2020-06-28 07:30] VITALS: BP 159/77
[2020-06-28] MEDS: PAROXETINE HCL 20 MG TABLET PO SCH (08:10)
[2020-06-28] MEDS: AMIODARONE HCL 200 MG TABLET PO SCH ×2 (08:11→21:49)
[2020-06-28] MEDS: METOPROLOL TARTRATE 25 MG TABLET PO SCH ×2 (08:11→17:16)
[2020-06-28] MEDS: MULTIVITAMINS,THERAPEUTIC TABLET PO SCH (08:12)
[2020-06-28] MEDS: ENSURE ENLIVE (VAN) 240 ML LIQUID PO SCH ×3 (08:12→17:17)
[2020-06-28] MEDS: ASPIRIN 81 MG TAB.CHEW PO SCH (08:12)
[2020-06-28] MEDS: THIAMINE HCL 100 MG TABLET PO SCH (08:12)
[2020-06-28] MEDS ORDERED: MAGNESIUM OXIDE 400 MG TABLET PO ONE (10:00)
[2020-06-28] MEDS: ACIDOPHILUS/BULGARICUS CHEW TAB PO SCH ×2 (13:08→21:49)
[2020-06-28] MEDS ORDERED: POTASSIUM CHLORIDE 20 MEQ POWDER PACKET PO ONE (16:00)
[2020-06-28 16:10] VITALS: BP 125/69
[2020-06-28] MEDS: MAGNESIUM SULFATE/D5W 100 ML IV SCH ×2 (17:11→17:18)
[2020-06-28] MEDS ORDERED: FUROSEMIDE 20 MG/2 ML VIAL IV ONE (17:45)
--- NOTE | 2020-06-28 20:00 | NUR ---
Received patient Axox4. No s/s of distress or SOB noted. Able to make needs known. Denies any pain/discomforts at this time. On continuos O2 at 2L/min via NC saturating 98% at this time. IV left forearm intact and patent, running 1 bag of magnesium. Assisted patient to the restroom. Got pt ready for bed and assisted back into bed. Safety measure in place. Call light and all personal items within pt reach.
[2020-06-28 20:10] VITALS: BP 114/68
[2020-06-28] MEDS: ZOLPIDEM 5 MG TABLET PO PRN (21:50)
[2020-06-28] MEDS: ENOXAPARIN SODIUM 30 MG/0.3 ML DISP.SYRIN SQ SCH (21:50)
--- NOTE | 2020-06-28 22:00 | NUR ---
all due mediation administered. Administered Ambien per patient request. All needs attended to promptly. Safety measure maintained. Will continue to monitor through the night.
[2020-06-29 05:00] VITALS: BP 106/58
[2020-06-29] MEDS: PANTOPRAZOLE SODIUM 40 MG TABLET.DR PO SCH (06:08)
[2020-06-29] MEDS: LEVOTHYROXINE SODIUM 175 MCG TABLET PO SCH (06:08)
[2020-06-29] MEDS: ACIDOPHILUS/BULGARICUS CHEW TAB PO SCH ×3 (06:08→20:36)
[2020-06-29 06:14] LABS: BASOPHILS # (AUTO) 0.1 K/uL (0.0-8.0); BASOPHILS % (AUTO) 1.1 % (0.0-2.0); EOSINOPHILS # (AUTO) 0.2 K/uL (0.0-0.7); EOSINOPHILS % (AUTO) 2.3 % (0.0-7.0); HEMATOCRIT 31.1 % (31.2-41.9); HEMOGLOBIN 10.7 g/dL (10.9-14.3); LYMPHOCYTES # (AUTO) 1.7 K/uL (20.0-40.0); MEAN CORPUSCULAR HEMOGLOBIN 28.6 uug (24.7-32.8); MEAN CORPUSCULAR HGB CONC 35 g/dL (32.3-35.6); MEAN CORPUSCULAR VOLUME 82.9 fL (75.5-95.3); MONOCYTES # (AUTO) 0.7 K/uL (2.0-10.0); MONOCYTES % (AUTO) 10.2 % (0.0-11.0); NEUTROPHILS # (AUTO) 4.6 K/uL (1.8-8.9); NEUTROPHILS % (AUTO) 63.4 % (38.5-71.5); PLATELET COUNT (AUTO) 347 K/uL (179-408); RED BLOOD CELL COUNT(AUTO) 3.75 MIL/uL (3.63-4.92); WHITE BLOOD COUNT (AUTO) 7.2 K/uL (3.8-11.8)
[2020-06-29 06:29] LABS: BILIRUBIN,TOTAL 0.3 mg/dL (0.2-1.0); CREATININE 1.2 mg/dL (0.6-1.3); MAGNESIUM 1.9 mg/dL (1.8-2.4); PHOSPHOROUS 2.9 mg/dL (2.5-4.9); POTASSIUM 3.9 mmol/L (3.5-5.1); TOTAL PROTEIN, SERUM 5.4 g/dL (6.4-8.2)
--- NOTE | 2020-06-29 07:45 | NUR ---
Received patient awake in bed. AO x 4. Patient on O2 at 2L nasal cannula. IV left forearm 22G Heplock intact. No complaints of pain. No acute distress noted. Bed alarm on, call light within reach. Bed locked and in lowest position Will continue to monitor patient.
[2020-06-29] MEDS: MAGNESIUM OXIDE 250 MG TABLET PO SCH (08:27)
[2020-06-29] MEDS: THIAMINE HCL 100 MG TABLET PO SCH (08:28)
[2020-06-29] MEDS: MULTIVITAMINS,THERAPEUTIC TABLET PO SCH (08:28)
[2020-06-29] MEDS: AMIODARONE HCL 200 MG TABLET PO SCH ×2 (08:28→20:37)
[2020-06-29] MEDS: METOPROLOL TARTRATE 25 MG TABLET PO SCH ×2 (08:28→16:46)
[2020-06-29] MEDS: ASPIRIN 81 MG TAB.CHEW PO SCH (08:28)
[2020-06-29] MEDS: PAROXETINE HCL 20 MG TABLET PO SCH (08:28)
[2020-06-29] MEDS: ENSURE ENLIVE (VAN) 240 ML LIQUID PO SCH ×3 (08:31→17:39)
[2020-06-29 11:30] VITALS: BP 97/58
[2020-06-29 15:31] VITALS: BP 126/72
--- NOTE | 2020-06-29 18:10 | NUR ---
Patient stable throughout shift. No complaints of pain and no acute distress noted. Call light within reach. Safety precautions in place. Will endorse to oncoming shift.
[2020-06-29 20:00] VITALS: BP_SYST 117; BP_SYST 131; BP_DIAS 67; BP_DIAS 77
--- NOTE | 2020-06-29 20:37 | NUR ---
INTERDISCIPLINARY TEAM CONFERENCE
[2020-06-29] MEDS: ENOXAPARIN SODIUM 30 MG/0.3 ML DISP.SYRIN SQ SCH (20:38)
[2020-06-29] MEDS: ACETAMINOPHEN 325 MG TABLET PO PRN (20:39)
[2020-06-29] MEDS: ZOLPIDEM 5 MG TABLET PO PRN (21:47)
--- NOTE | 2020-06-29 22:00 | NUR ---
Received patient Axox4. No s/s of distress or SOB noted. Able to make needs known. Denies any pain/discomforts at this time. On continuos O2 at 2L/min via NC saturating 98% at this time. IV left forearm intact and patent. All needs attended to promptly. All due medication administered. Safety measure in place. Call light and all personal items within pt reach.
[2020-06-30 04:00] VITALS: BP 116/75
[2020-06-30] MEDS: LEVOTHYROXINE SODIUM 175 MCG TABLET PO SCH (06:20)
[2020-06-30] MEDS: PANTOPRAZOLE SODIUM 40 MG TABLET.DR PO SCH (06:21)
[2020-06-30] MEDS: ACIDOPHILUS/BULGARICUS CHEW TAB PO SCH ×3 (06:21→21:13)
[2020-06-30 08:00] VITALS: BP 137/82
[2020-06-30] MEDS: AMIODARONE HCL 200 MG TABLET PO SCH ×2 (08:09→20:00)
[2020-06-30] MEDS: MULTIVITAMINS,THERAPEUTIC TABLET PO SCH (08:09)
[2020-06-30] MEDS: ENSURE ENLIVE (VAN) 240 ML LIQUID PO SCH ×3 (08:09→16:18)
[2020-06-30] MEDS: ASPIRIN 81 MG TAB.CHEW PO SCH (08:09)
[2020-06-30] MEDS: METOPROLOL TARTRATE 25 MG TABLET PO SCH ×2 (08:09→16:18)
[2020-06-30] MEDS: PAROXETINE HCL 20 MG TABLET PO SCH (08:09)
[2020-06-30] MEDS: MAGNESIUM OXIDE 250 MG TABLET PO SCH (08:10)
[2020-06-30] MEDS: THIAMINE HCL 100 MG TABLET PO SCH (08:10)
[2020-06-30 14:34] VITALS: BP 129/58
--- NOTE | 2020-06-30 19:35 | NUR ---
Received patient awake, alert and orient x 4. Able to make needs known. Denies any pain/discomforts at this time.call light with in reach.
[2020-06-30] MEDS: ENOXAPARIN SODIUM 30 MG/0.3 ML DISP.SYRIN SQ SCH (20:02)
[2020-06-30 20:37] VITALS: BP 112/46
[2020-06-30] MEDS: ZOLPIDEM 5 MG TABLET PO PRN (21:14)
--- NOTE | 2020-07-01 04:00 | NUR ---
pt refused 4 am vitals charge nurse made aware
--- NOTE | 2020-07-01 05:43 | NUR ---
pt slept throughout the night vs are stable call light with in reach will continue to monitor
[2020-07-01] MEDS: PANTOPRAZOLE SODIUM 40 MG TABLET.DR PO SCH (06:15)
[2020-07-01] MEDS: ACIDOPHILUS/BULGARICUS CHEW TAB PO SCH ×3 (06:15→21:03)
[2020-07-01] MEDS: LEVOTHYROXINE SODIUM 175 MCG TABLET PO SCH (06:15)
[2020-07-01 08:00] VITALS: BP 158/72
--- NOTE | 2020-07-01 09:00 | NUR ---
HR 59, retook HR manually 60. Will hold Amiodarone for now. Gave Metoprolol. Will monitor
[2020-07-01] MEDS: ASPIRIN 81 MG TAB.CHEW PO SCH (09:02)
[2020-07-01] MEDS: PAROXETINE HCL 20 MG TABLET PO SCH (09:03)
[2020-07-01] MEDS: MULTIVITAMINS,THERAPEUTIC TABLET PO SCH (09:03)
[2020-07-01] MEDS: THIAMINE HCL 100 MG TABLET PO SCH (09:03)
[2020-07-01] MEDS: ENSURE ENLIVE (VAN) 240 ML LIQUID PO SCH ×3 (09:10→17:11)
[2020-07-01] MEDS: MAGNESIUM OXIDE 250 MG TABLET PO SCH (09:13)
[2020-07-01] MEDS: METOPROLOL TARTRATE 25 MG TABLET PO SCH ×2 (09:16→17:10)
[2020-07-01] MEDS: AMIODARONE HCL 200 MG TABLET PO SCH ×2 (14:57→20:10)
[2020-07-01 16:00] VITALS: BP 100/47
--- NOTE | 2020-07-01 17:51 | NUR ---
patient sitting in chair and stable throughout shift. On RA with no SOB or distress at this time. Amiodarone given and denied any chest pain. No other complaints at this time
[2020-07-01] MEDS: ENOXAPARIN SODIUM 30 MG/0.3 ML DISP.SYRIN SQ SCH (20:10)
[2020-07-01 20:55] VITALS: BP 143/63
[2020-07-01] MEDS: ZOLPIDEM 5 MG TABLET PO PRN (21:03)
[2020-07-01] MEDS: ACETAMINOPHEN 325 MG TABLET PO PRN (22:53)
[2020-07-02 04:45] VITALS: BP 107/66
[2020-07-02] MEDS: PANTOPRAZOLE SODIUM 40 MG TABLET.DR PO SCH (06:10)
[2020-07-02] MEDS: LEVOTHYROXINE SODIUM 175 MCG TABLET PO SCH (06:10)
[2020-07-02] MEDS: ACIDOPHILUS/BULGARICUS CHEW TAB PO SCH ×3 (06:10→20:43)
[2020-07-02 08:31] VITALS: BP 116/63
[2020-07-02] MEDS: MULTIVITAMINS,THERAPEUTIC TABLET PO SCH (09:30)
[2020-07-02] MEDS: PAROXETINE HCL 20 MG TABLET PO SCH (09:31)
[2020-07-02] MEDS: ASPIRIN 81 MG TAB.CHEW PO SCH (09:31)
[2020-07-02] MEDS: THIAMINE HCL 100 MG TABLET PO SCH (09:31)
[2020-07-02] MEDS: AMIODARONE HCL 200 MG TABLET PO SCH ×2 (09:32→20:43)
[2020-07-02] MEDS: METOPROLOL TARTRATE 25 MG TABLET PO SCH ×2 (09:32→16:53)
[2020-07-02] MEDS: ENSURE ENLIVE (VAN) 240 ML LIQUID PO SCH ×3 (09:32→18:01)
[2020-07-02] MEDS: MAGNESIUM OXIDE 250 MG TABLET PO SCH (09:33)
[2020-07-02 15:56] VITALS: BP 118/49
[2020-07-02 16:28] LABS: BASOPHILS # (AUTO) 0.1 K/uL (0.0-8.0); BASOPHILS % (AUTO) 1.4 % (0.0-2.0); EOSINOPHILS # (AUTO) 0.1 K/uL (0.0-0.7); EOSINOPHILS % (AUTO) 2.1 % (0.0-7.0); HEMATOCRIT 31.6 % (31.2-41.9); HEMOGLOBIN 10.7 g/dL (10.9-14.3); LYMPHOCYTES # (AUTO) 1.3 K/uL (20.0-40.0); LYMPHOCYTES % (AUTO) 17.6 % (20.5-51.5); MEAN CORPUSCULAR HEMOGLOBIN 28.6 uug (24.7-32.8); MEAN CORPUSCULAR HGB CONC 34 g/dL (32.3-35.6); MEAN CORPUSCULAR VOLUME 84.6 fL (75.5-95.3); MONOCYTES # (AUTO) 0.6 K/uL (2.0-10.0); MONOCYTES % (AUTO) 9.1 % (0.0-11.0); NEUTROPHILS % (AUTO) 69.8 % (38.5-71.5); PLATELET COUNT (AUTO) 398 K/uL (179-408); RED BLOOD CELL COUNT(AUTO) 3.73 MIL/uL (3.63-4.92); WHITE BLOOD COUNT (AUTO) 7.1 K/uL (3.8-11.8)
[2020-07-02 16:30] LABS: CREATININE 1.2 mg/dL (0.6-1.3); POTASSIUM 4.1 mmol/L (3.5-5.1)
--- NOTE | 2020-07-02 18:00 | NUR ---
Patient remains alert, oriented x 4, not in any form of distress, on room air. She denies any pain or discomfort. Patient participated with PT, OT and tolerated well. Patient seen by Dr. Gamboa at this time and said apply [place] Hose on bilateral lower leg for noted swelling of feet and elevate.
[2020-07-02] MEDS: ACETAMINOPHEN 325 MG TABLET PO PRN (20:39)
[2020-07-02] MEDS: ENOXAPARIN SODIUM 30 MG/0.3 ML DISP.SYRIN SQ SCH (20:42)
[2020-07-02 20:48] VITALS: BP 126/61
[2020-07-02] MEDS: ZOLPIDEM 5 MG TABLET PO PRN (22:08)
--- NOTE | 2020-07-03 01:37 | NUR ---
Received patient resting in bed. No s/s of distress or SOB noted. Able to make needs known. c/o lower leg pain, per patient request administered Tylenol. All due medication administered. Per pt request administered Ambien. Assisted pt with getting ready for bed. All needs attended to promptly. Safety measure maintained. Call light and all personal items within pt reach. Will continue to monitor through the night.
[2020-07-03 04:13] VITALS: BP 130/57
[2020-07-03] MEDS: LEVOTHYROXINE SODIUM 175 MCG TABLET PO SCH (06:19)
[2020-07-03] MEDS: PANTOPRAZOLE SODIUM 40 MG TABLET.DR PO SCH (06:19)
[2020-07-03] MEDS: ACIDOPHILUS/BULGARICUS CHEW TAB PO SCH ×2 (06:19→13:50)
[2020-07-03] MEDS: PAROXETINE HCL 20 MG TABLET PO SCH (08:47)
[2020-07-03] MEDS: ASPIRIN 81 MG TAB.CHEW PO SCH (08:47)
[2020-07-03] MEDS: MULTIVITAMINS,THERAPEUTIC TABLET PO SCH (08:47)
[2020-07-03] MEDS: MAGNESIUM OXIDE 250 MG TABLET PO SCH (08:52)
[2020-07-03] MEDS: AMIODARONE HCL 200 MG TABLET PO SCH (08:56)
[2020-07-03] MEDS: THIAMINE HCL 100 MG TABLET PO SCH (08:57)
[2020-07-03] MEDS: METOPROLOL TARTRATE 25 MG TABLET PO SCH ×2 (08:57→17:53)
[2020-07-03] MEDS: ENSURE ENLIVE (VAN) 240 ML LIQUID PO SCH ×3 (08:58→17:31)
[2020-07-03 09:51] VITALS: BP 150/58
[2020-07-03] MEDS ORDERED: LOPERAMIDE HCL 2 MG CAPSULE PO PRN (11:15)
--- NOTE | 2020-07-03 12:00 | NUR ---
Informed Dr. Rendon regarding patient's complain of having diarrhea x 3 with no associated symptom. See order history for new order.
[2020-07-03 12:49] VITALS: BP 135/53
--- NOTE | 2020-07-03 14:10 | NUR ---
Dr. Rendon in the unit, per MD patient is OK for discharge to home today.
--- NOTE | 2020-07-03 14:34 | NUR ---
Received an order from Dr. Billy for discharge to home with home health for PT, OT and nursing services.
--- NOTE | 2020-07-03 15:00 | NUR ---
Patient seen and examined by Dr. Gamboa, given update to MD with new orders prior discharge, see order history.
[2020-07-03 15:54] LABS: *BILIRUBIN,URIN NEGATIVE (NEGATIVE); *BLOOD, URINE NEGATIVE (NEGATIVE); *CLARITY,URINE CLEAR (CLEAR); *COLOR,URINE YELLOW (YELLOW); *KETONES,URINE NEGATIVE (NEGATIVE); *UROBILINOGEN,URINE 0.2 E.U./dl (NORMAL); LEUKOCYTE ESTERASE ,URINE NEGATIVE (NEGATIVE); NITRITE, URINE NEGATIVE (NEGATIVE); UGLUCOSE NEGATIVE (NEGATIVE)
[2020-07-03 15:55] LABS: BASOPHILS # (AUTO) 0.1 K/uL (0.0-8.0); BASOPHILS % (AUTO) 1.3 % (0.0-2.0); EOSINOPHILS # (AUTO) 0.2 K/uL (0.0-0.7); EOSINOPHILS % (AUTO) 2.6 % (0.0-7.0); HEMATOCRIT 30.8 % (31.2-41.9); HEMOGLOBIN 10.3 g/dL (10.9-14.3); LYMPHOCYTES # (AUTO) 1.2 K/uL (20.0-40.0); LYMPHOCYTES % (AUTO) 14.7 % (20.5-51.5); MEAN CORPUSCULAR HEMOGLOBIN 28.3 uug (24.7-32.8); MEAN CORPUSCULAR HGB CONC 33 g/dL (32.3-35.6); MONOCYTES # (AUTO) 0.6 K/uL (2.0-10.0); MONOCYTES % (AUTO) 7.7 % (0.0-11.0); NEUTROPHILS # (AUTO) 5.9 K/uL (1.8-8.9); NEUTROPHILS % (AUTO) 73.7 % (38.5-71.5); PLATELET COUNT (AUTO) 388 K/uL (179-408); RED BLOOD CELL COUNT(AUTO) 3.62 MIL/uL (3.63-4.92)
[2020-07-03 16:00] LABS: BILIRUBIN,TOTAL 0.2 mg/dL (0.2-1.0); CREATININE 1.3 mg/dL (0.6-1.3); MAGNESIUM 1.9 mg/dL (1.8-2.4); PHOSPHOROUS 3.7 mg/dL (2.5-4.9); POTASSIUM 3.9 mmol/L (3.5-5.1); TOTAL PROTEIN, SERUM 5.8 g/dL (6.4-8.2)
[2020-07-03 17:53] VITALS: BP 146/55
--- NOTE | 2020-07-03 18:11 | NUR ---
Informed MD regarding lab and urinalysis results, and per MD patient is OK to go home, no new order. Addendum: 07/03/20 at 1815 by TACO ANDINO RN RN MD informed was Dr. Gamboa.
--- NOTE | 2020-07-03 18:34 | NUR ---
Discharge instructions provided to patient with verbalized understanding. Discharge papers signed by and given to the patient. All belongings well accounted for and brought home with the patient. Discharge medication list and prescriptions faxed to preferred pharmacy. Patient remains alert, oriented x 4, not in any form of distress. No more episode of diarrhea noted. Assisted patient safely to the lobby via wheelchair. Patient discharged to home with home health, picked up by friend/neighbor Charleen Kaur via private car.
== END 2020-07-03 18:30 | disposition home health service (06) | DRG 947 ==
PROVIDERS: ADMIT Physical Medicine & Rehabilitation Pain Medicine; ATTEND Physical Medicine & Rehabilitation Pain Medicine
DX: R53.1 Weakness (principal); E43 Unspecified severe protein-calorie malnutrition; I50.33 Acute on chronic diastolic (congestive) heart failure; I21.A1 Myocardial infarction type 2; N17.0 Acute kidney failure with tubular necrosis; J18.9 Pneumonia, unspecified organism; E87.1 Hypo-osmolality and hyponatremia; K52.9 Noninfective gastroenteritis and colitis, unspecified; E86.0 Dehydration; I11.0 Hypertensive heart disease with heart failure; I48.0 Paroxysmal atrial fibrillation; M19.90 Unspecified osteoarthritis, unspecified site; E89.0 Postprocedural hypothyroidism; Z85.850 Personal history of malignant neoplasm of thyroid; I73.9 Peripheral vascular disease, unspecified; F41.9 Anxiety disorder, unspecified; G47.00 Insomnia, unspecified; K21.9 Gastro-esophageal reflux disease without esophagitis; R26.89 Other abnormalities of gait and mobility; Z88.8 Allergy status to other drugs, medicaments and biological substances
CPT/HCPCS: 36415; 71045; 83735; 84100; 84443; 84480; 85025; J1650; J1940; J3475

== ENCOUNTER 2021-04-10 18:41 | Emergency (ER) | payer MEDICARE ==
[~2021-04-10] VITALS: Ht 170.2 cm; Wt 63.5 kg
[~2021-04-10 18:41] MED LIST changes: +ACET-2154 PO; +AMIO200T5 PO; +ASPI81TA31 PO; +CYAN100T44 PO; +FOLIC ACID; -Folic Acid PO; -HYDR-3326 PO; -HYDR12.55 PO; +LACT1CAP61 PO; -MAGN400O6 PO; -PARO25TA16 PO; +PARO40TA4 PO; -THIA100T13 PO; -ZOLP10TA2 PO; -ZOLP5TAB2 PO; +ZOLP5TAB8 PO
--- NOTE | 2021-04-10 19:10 | NUR ---
Patient presented to ER with c/o of swelling to Rt forehead and bruising around orbits. No acute distress.
--- NOTE | 2021-04-10 21:00 | NUR ---
Per Dr. Anton, pt stable for discharge. DC instructions given and reviewed with patient. Verbalized understanding. Left ER in stable condition.
[2021-04-10 21:48] VITALS: BP 180/74
== END 2021-04-10 21:00 | disposition home or self-care (01) ==
LOC: ER 18:41
DX: S00.12XA Contusion of left eyelid and periocular area, initial encounter (principal); S00.11XA Contusion of right eyelid and periocular area, initial encounter; S00.83XA Contusion of other part of head, initial encounter; W20.8XXA Other cause of strike by thrown, projected or falling object, initial encounter; Y92.89 Other specified places as the place of occurrence of the external cause; I48.91 Unspecified atrial fibrillation; Z79.01 Long term (current) use of anticoagulants; Z86.73 Personal history of transient ischemic attack (TIA), and cerebral infarction without residual deficits; Z85.850 Personal history of malignant neoplasm of thyroid; E89.0 Postprocedural hypothyroidism; Z79.82 Long term (current) use of aspirin; Z79.890 Hormone replacement therapy; I10 Essential (primary) hypertension; R94.31 Abnormal electrocardiogram [ECG] [EKG]
CPT/HCPCS: 70450; 93005; A4663